=== PATIENT | male | born 1980 | race African-American/Black ===

== ENCOUNTER 2016-06-17 12:44 | Inpatient (IN) | payer OTHER ==
[~2016-06-17] VITALS: Ht 170.2 cm; Wt 57.7 kg
[2016-06-17] MEDS ORDERED: IV NORMAL SALINE 1000ML BAG 1,000 ML IV SCH (15:33)
[2016-06-17] MEDS ORDERED: ONDANSETRON PF 4 MG/2 ML VIAL. IV ONE (15:45)
[2016-06-17] MEDS ORDERED: FENTANYL PF 100 MCG/2 ML VIAL. IV PRN (15:45)
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
[2016-06-17 16:52] LABS: BASO % 0 % (0-3); EOS % 0 % (0-3); HEMATOCRIT 26.9 % (39.0-53.0); HEMOGLOBIN 8.8 g/dL (13.0-17.5); LYMPH % 30 % (24-48); MEAN CORPUSCULAR HEMOGLOBIN 29 pg (25-35); MEAN CORPUSCULAR HGB CONC 33 g/dL (31-37); MEAN CORPUSCULAR VOLUME 88 fL (79-100); MONO % 9 % (0-9); NEUT % 62 % (31-73); PLATELET COUNT 344 x10^3/uL (140-400); RED BLOOD COUNT 3.06 x10^6/uL (4.30-5.70); RED CELL DISTRIBUTION WIDTH 13.5 % (11.5-14.5); WHITE BLOOD COUNT 10.2 x10^3/uL (4.0-11.0)
[2016-06-17 17:08] LABS: CALCIUM 8.6 mg/dL (8.5-10.1); CREATININE 0.9 mg/dL (0.7-1.3); GFR 116.2; POTASSIUM 4.7 mmol/L (3.5-5.1)
[2016-06-17 17:20] LABS: ALBUMIN 1.8 g/dL (3.4-5.0); ALBUMIN/GLOBULIN RATIO 0.4 (1.0-1.7); TOTAL BILIRUBIN 0.2 mg/dL (0.2-1.0); TOTAL PROTEIN 6.5 g/dL (6.4-8.2)
[2016-06-17] MEDS ORDERED: IOHEXOL 300 MG/ML 75 ML VIAL IV ONE (17:30)
[2016-06-17 17:36] LABS: NEG OBC FOB NEG; POS OBC FOB POS
[2016-06-17] MEDS ORDERED: CONTRAST GIVEN MC PRN (17:45)
[2016-06-17] MEDS ORDERED: LOPE2TAB27 PO (17:50)
[2016-06-17] MEDS ORDERED: PNV91TAB3 PO (17:50)
[2016-06-17] MEDS ORDERED: TRIM100V2 IM (17:50)
[2016-06-17] MEDS ORDERED: PRED20TA PO (17:50)
[2016-06-17] MEDS ORDERED: HYDR25TA PO (17:50)
[2016-06-17] MEDS ORDERED: NYST1000 PO (18:00)
[2016-06-17] MEDS ORDERED: ACET500T68 PO (18:00)
[2016-06-17] MEDS ORDERED: BOOST (18:00)
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
[2016-06-17] MEDS ORDERED: ONDANSETRON PF 4 MG/2 ML VIAL. IV PRN (18:45)
[2016-06-17] MEDS ORDERED: METRONIDAZOLE 500mg PREMIX 100 ML IV ONE (18:45)
[2016-06-17] MEDS ORDERED: CEFTRIAXONE 1GM IVPB FOR OMNI 50 ML IV ONE (18:45)
[2016-06-17] MEDS: MORPHINE SULFATE 4 MG/ML DISP.SYRIN. IV PRN ×2 (21:05→23:20)
--- NOTE | 2016-06-17 23:14 | ACF ---
Admission Forms Criteria GASTROINTESTINAL BLEEDING Clinical Indications for Inpatient Care (Place 'X' for any and all applicable criteria): Ongoing inpatient care may be indicated for gastrointestinal bleeding with ANY ONE of the following (4)(20)(21)(22)(23)(24): [ X]I. Active bleeding (eg, fresh voluminous blood in emesis or nasogastric aspirate, or per rectum) [ ]II. Hemodynamic instability [ ]III. Anticoagulation therapy or coagulopathy ((eg, advanced liver disease, irreversible anticoagulation) [ ]IV. Ischemic colitis (22) [ ]V. Endoscopy showing arterial bleeding, adherent clot, nonbleeding visible vessel, varices, flat red spots, ulcer size greater than 2 cm, or portal hypertensive gastropathy [ ]. High-risk low platelet count []VII. Anemia requiring inpatient care as indicated by ANY ONE of the following a)[ ] Cognitive impairment b)[ ] Syncope c)[ ] Heart failure d)[ ] Chest pain e)[ ] Dyspnea f)[ ] Other findings suggesting inadequate perfusion (eg, peripheral or myocardial ischemia, end organ dysfunction) [ ]VIII. High-risk low platelet count [ ]IX. Suspected variceal cause of bleeding as indicated by ANY ONE of the following(27)(28): a)[ ] Known varices b)[ ] Hepatomegaly or splenomegaly c)[ ] Ascites d)[ ] Jaundice or scleral icterus e)[ ] History of liver disease (eg, cirrhosis) f)[ ] Physical findings of portal hypertension (eg, caput medusa) g)[ ] Comorbid disorder indicating risk for portal vein thrombosis (eg , abdominal surgery, sepsis, shock, exchange transfusion, prior umbilical vein catheterization) Extended stay may be needed until ALL of the following are present(20)(38)(47): [ ]a) Hemodynamic stability [ ]b) No evidence of active bleeding (eg, stable Hematocrit) [ ]c) Platelet count, prothrombin time, and partial thromboplastin time acceptable for next level of care [ ]d) Surgical or other acute intervention not needed [ ]e) Oral hydration and diet tolerated The original [employer] content created by [employer] has been revised. The portions of the content which have been revised are identified through the use of italic text or in bold, and [employer] has neither reviewed nor approved the modified material. All other unmodified content is copyright [facility]. Please see references footnoted in the original [facility] edition 2016 Admission Criteria Met?: Yes RICHIE MEZA Jun 17, 2016 23:14
[2016-06-17] MEDS: ACETAMINOPHEN 325 MG TABLET. PO PRN (23:19)
[2016-06-18] VITALS (11 sets, daily range): BP systolic 95–123; BP diastolic 56–72
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
[2016-06-18] MEDS ORDERED: PRED20TA PO (03:29)
[2016-06-18] MEDS ORDERED: MULT-91 PO (03:29)
[2016-06-18] MEDS: ACETAMINOPHEN 325 MG TABLET. PO PRN ×2 (04:27→10:52)
[2016-06-18] MEDS: MORPHINE SULFATE 4 MG/ML DISP.SYRIN. IV PRN ×3 (04:27→10:38)
[2016-06-18] MEDS: METRONIDAZOLE 500mg PREMIX 100 ML IV SCH ×3 (05:35→20:59)
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
[2016-06-18 10:04] LABS: BASO % 0 % (0-3); EOS % 2 % (0-3); HEMATOCRIT 29.1 % (39.0-53.0); HEMOGLOBIN 9.8 g/dL (13.0-17.5); LYMPH # 4.1 x10^3/uL (1.0-4.8); LYMPH % 40 % (24-48); MEAN CORPUSCULAR HEMOGLOBIN 29 pg (25-35); MEAN CORPUSCULAR HGB CONC 34 g/dL (31-37); MEAN CORPUSCULAR VOLUME 86 fL (79-100); MONO % 11 % (0-9); NEUT % 47 % (31-73); PLATELET COUNT 345 x10^3/uL (140-400); RED BLOOD COUNT 3.39 x10^6/uL (4.30-5.70); RED CELL DISTRIBUTION WIDTH 13.7 % (11.5-14.5); WHITE BLOOD COUNT 10.2 x10^3/uL (4.0-11.0)
[2016-06-18 10:25] LABS: CALCIUM 7.8 mg/dL (8.5-10.1); CREATININE 0.9 mg/dL (0.7-1.3); GFR 116.2; POTASSIUM 4.1 mmol/L (3.5-5.1)
[2016-06-18] MEDS: methylPREDNISolone SOD SUCC PF 40 MG/ML VIAL. IV SCH ×2 (10:38→20:59)
--- NOTE | 2016-06-18 15:25 | PDOC ---
PROGRESS NOTES Chief Complaint Chief Complaint acute abd pain ulcerative colitis flare Bloody diarrhea, abdominal pain, weight loss anemia of blood loss severe malnutrition on POA H/o C Diff -treated w/ Flagyl -- Check stool culture and C Diff, start IV steroids, continue antibiotics, monitor symptoms. Likely needs group home treatment for UC. History of Present Illness History of Present Illness Abnormal CT -thickening in the majority of colon Prior UC treatment with Humira - had stopped 2014, no flare until now Vitals Vitals Vital Signs Date Time Temp Pulse Resp B/P Pulse Ox O2 Delivery O2 Flow Rate FiO2 06/18/16 14:48 98.4 100 18 105/63 98 Room Air 98.4 Physical Exam General: Alert, Oriented X3, Cooperative, mild distress, moderate distress Heart: Regular rate, No murmurs Lungs: Clear, Wheezing Abdomen: Normal bowel sounds, Other (tender, thin, ) Extremities: No clubbing, No cyanosis Skin: No rashes Labs LABS Laboratory Tests Test 06/17/16 15:46 06/17/16 16:15 06/18/16 09:35 Stool Occult Blood Positive (NEG) White Blood Count 10.2x10^3/uL (4.0-11.0) 10.2x10^3/uL (4.0-11.0) Red Blood Count 3.06x10^6/uL (4.30-5.70) 3.39x10^6/uL (4.30-5.70) Hemoglobin 8.8g/dL (13.0-17.5) 9.8g/dL (13.0-17.5) Hematocrit 26.9% (39.0-53.0) 29.1% (39.0-53.0) Mean Corpuscular Volume 88fL (79-100) 86fL (79-100) Mean Corpuscular Hemoglobin 29pg (25-35) 29pg (25-35) Mean Corpuscular Hemoglobin Concent 33g/dL (31-37) 34g/dL (31-37) Red Cell Distribution Width 13.5% (11.5-14.5) 13.7% (11.5-14.5) Platelet Count 344x10^3/uL (140-400) 345x10^3/uL (140-400) Neutrophils (%) (Auto) 62% (31-73) 47% (31-73) Lymphocytes (%) (Auto) 30% (24-48) 40% (24-48) Monocytes (%) (Auto) 9% (0-9) 11% (0-9) Eosinophils (%) (Auto) 0% (0-3) 2% (0-3) Basophils (%) (Auto) 0% (0-3) 0% (0-3) Neutrophils # (Auto) 6.3x10^3uL (1.8-7.7) 4.8x10^3uL (1.8-7.7) Lymphocytes # (Auto) 3.0x10^3/uL (1.0-4.8) 4.1x10^3/uL (1.0-4.8) Monocytes # (Auto) 0.9x10^3/uL (0.0-1.1) 1.1x10^3/uL (0.0-1.1) Eosinophils # (Auto) 0.0x10^3/uL (0.0-0.7) 0.2x10^3/uL (0.0-0.7) Basophils # (Auto) 0.0x10^3/uL (0.0-0.2) 0.0x10^3/uL (0.0-0.2) Sodium Level 133mmol/L (136-145) 131mmol/L (136-145) Potassium Level 4.7mmol/L (3.5-5.1) 4.1mmol/L (3.5-5.1) Chloride Level 97mmol/L (98-107) 98mmol/L (98-107) Carbon Dioxide Level 32mmol/L (21-32) 25mmol/L (21-32) Anion Gap 4 (6-14) 8 (6-14) Blood Urea Nitrogen 11mg/dL (8-26) 11mg/dL (8-26) Creatinine 0.9mg/dL (0.7-1.3) 0.9mg/dL (0.7-1.3) Estimated GFR (Cockcroft-Gault) 116.2 116.2 BUN/Creatinine Ratio 12 (6-20) Glucose Level 120mg/dL (70-99) 90mg/dL (70-99) Lactic Acid Level 1.1mmol/L (0.4-2.0) Calcium Level 8.6mg/dL (8.5-10.1) 7.8mg/dL (8.5-10.1) Total Bilirubin 0.2mg/dL (0.2-1.0) Aspartate Amino Transf (AST/SGOT) 28U/L (15-37) Alanine Aminotransferase (ALT/SGPT) 94U/L (16-63) Alkaline Phosphatase 122U/L (46-116) Troponin I Quantitative < 0.017ng/mL (0.000-0.055) IH-Tnl-H-Type Natriuretic Peptide 74pg/mL (0-124) Total Protein 6.5g/dL (6.4-8.2) Albumin 1.8g/dL (3.4-5.0) Albumin/Globulin Ratio 0.4 (1.0-1.7) Lipase 106U/L (73-393) Review of Systems Review of Systems nausea pain, was 10.10, now 7 diarrhea w./ blood Assessment and Plan Assessmemt and Plan Problems Medical Problems: (1) Colitis Status: Acute Problems: Comment Review of Relevant I have reviewed the following items mariella (where applicable) has been applied. Labs Laboratory Tests Test 06/17/16 15:46 06/17/16 16:15 06/18/16 09:35 Stool Occult Blood Positive (NEG) White Blood Count 10.2x10^3/uL (4.0-11.0) 10.2x10^3/uL (4.0-11.0) Red Blood Count 3.06x10^6/uL (4.30-5.70) 3.39x10^6/uL (4.30-5.70) Hemoglobin 8.8g/dL (13.0-17.5) 9.8g/dL (13.0-17.5) Hematocrit 26.9% (39.0-53.0) 29.1% (39.0-53.0) Mean Corpuscular Volume 88fL (79-100) 86fL (79-100) Mean Corpuscular Hemoglobin 29pg (25-35) 29pg (25-35) Mean Corpuscular Hemoglobin Concent 33g/dL (31-37) 34g/dL (31-37) Red Cell Distribution Width 13.5% (11.5-14.5) 13.7% (11.5-14.5) Platelet Count 344x10^3/uL (140-400) 345x10^3/uL (140-400) Neutrophils (%) (Auto) 62% (31-73) 47% (31-73) Lymphocytes (%) (Auto) 30% (24-48) 40% (24-48) Monocytes (%) (Auto) 9% (0-9) 11% (0-9) Eosinophils (%) (Auto) 0% (0-3) 2% (0-3) Basophils (%) (Auto) 0% (0-3) 0% (0-3) Neutrophils # (Auto) 6.3x10^3uL (1.8-7.7) 4.8x10^3uL (1.8-7.7) Lymphocytes # (Auto) 3.0x10^3/uL (1.0-4.8) 4.1x10^3/uL (1.0-4.8) Monocytes # (Auto) 0.9x10^3/uL (0.0-1.1) 1.1x10^3/uL (0.0-1.1) Eosinophils # (Auto) 0.0x10^3/uL (0.0-0.7) 0.2x10^3/uL (0.0-0.7) Basophils # (Auto) 0.0x10^3/uL (0.0-0.2) 0.0x10^3/uL (0.0-0.2) Sodium Level 133mmol/L (136-145) 131mmol/L (136-145) Potassium Level 4.7mmol/L (3.5-5.1) 4.1mmol/L (3.5-5.1) Chloride Level 97mmol/L (98-107) 98mmol/L (98-107) Carbon Dioxide Level 32mmol/L (21-32) 25mmol/L (21-32) Anion Gap 4 (6-14) 8 (6-14) Blood Urea Nitrogen 11mg/dL (8-26) 11mg/dL (8-26) Creatinine 0.9mg/dL (0.7-1.3) 0.9mg/dL (0.7-1.3) Estimated GFR (Cockcroft-Gault) 116.2 116.2 BUN/Creatinine Ratio 12 (6-20) Glucose Level 120mg/dL (70-99) 90mg/dL (70-99) Lactic Acid Level 1.1mmol/L (0.4-2.0) Calcium Level 8.6mg/dL (8.5-10.1) 7.8mg/dL (8.5-10.1) Total Bilirubin 0.2mg/dL (0.2-1.0) Aspartate Amino Transf (AST/SGOT) 28U/L (15-37) Alanine Aminotransferase (ALT/SGPT) 94U/L (16-63) Alkaline Phosphatase 122U/L (46-116) Troponin I Quantitative < 0.017ng/mL (0.000-0.055) BE-Hjk-S-Type Natriuretic Peptide 74pg/mL (0-124) Total Protein 6.5g/dL (6.4-8.2) Albumin 1.8g/dL (3.4-5.0) Albumin/Globulin Ratio 0.4 (1.0-1.7) Lipase 106U/L (73-393) Laboratory Tests Test 06/17/16 15:46 06/17/16 16:15 06/18/16 09:35 Stool Occult Blood Positive (NEG) White Blood Count 10.2x10^3/uL (4.0-11.0) 10.2x10^3/uL (4.0-11.0) Red Blood Count 3.06x10^6/uL (4.30-5.70) 3.39x10^6/uL (4.30-5.70) Hemoglobin 8.8g/dL (13.0-17.5) 9.8g/dL (13.0-17.5) Hematocrit 26.9% (39.0-53.0) 29.1% (39.0-53.0) Mean Corpuscular Volume 88fL (79-100) 86fL (79-100) Mean Corpuscular Hemoglobin 29pg (25-35) 29pg (25-35) Mean Corpuscular Hemoglobin Concent 33g/dL (31-37) 34g/dL (31-37) Red Cell Distribution Width 13.5% (11.5-14.5) 13.7% (11.5-14.5) Platelet Count 344x10^3/uL (140-400) 345x10^3/uL (140-400) Neutrophils (%) (Auto) 62% (31-73) 47% (31-73) Lymphocytes (%) (Auto) 30% (24-48) 40% (24-48) Monocytes (%) (Auto) 9% (0-9) 11% (0-9) Eosinophils (%) (Auto) 0% (0-3) 2% (0-3) Basophils (%) (Auto) 0% (0-3) 0% (0-3) Neutrophils # (Auto) 6.3x10^3uL (1.8-7.7) 4.8x10^3uL (1.8-7.7) Lymphocytes # (Auto) 3.0x10^3/uL (1.0-4.8) 4.1x10^3/uL (1.0-4.8) Monocytes # (Auto) 0.9x10^3/uL (0.0-1.1) 1.1x10^3/uL (0.0-1.1) Eosinophils # (Auto) 0.0x10^3/uL (0.0-0.7) 0.2x10^3/uL (0.0-0.7) Basophils # (Auto) 0.0x10^3/uL (0.0-0.2) 0.0x10^3/uL (0.0-0.2) Sodium Level 133mmol/L (136-145) 131mmol/L (136-145) Potassium Level 4.7mmol/L (3.5-5.1) 4.1mmol/L (3.5-5.1) Chloride Level 97mmol/L (98-107) 98mmol/L (98-107) Carbon Dioxide Level 32mmol/L (21-32) 25mmol/L (21-32) Anion Gap 4 (6-14) 8 (6-14) Blood Urea Nitrogen 11mg/dL (8-26) 11mg/dL (8-26) Creatinine 0.9mg/dL (0.7-1.3) 0.9mg/dL (0.7-1.3) Estimated GFR (Cockcroft-Gault) 116.2 116.2 BUN/Creatinine Ratio 12 (6-20) Glucose Level 120mg/dL (70-99) 90mg/dL (70-99) Lactic Acid Level 1.1mmol/L (0.4-2.0) Calcium Level 8.6mg/dL (8.5-10.1) 7.8mg/dL (8.5-10.1) Total Bilirubin 0.2mg/dL (0.2-1.0) Aspartate Amino Transf (AST/SGOT) 28U/L (15-37) Alanine Aminotransferase (ALT/SGPT) 94U/L (16-63) Alkaline Phosphatase 122U/L (46-116) Troponin I Quantitative < 0.017ng/mL (0.000-0.055) AU-Zhl-S-Type Natriuretic Peptide 74pg/mL (0-124) Total Protein 6.5g/dL (6.4-8.2) Albumin 1.8g/dL (3.4-5.0) Albumin/Globulin Ratio 0.4 (1.0-1.7) Lipase 106U/L (73-393) Medications Current Medications Fentanyl Citrate 25 mcg 25 mcg PRN Q15MIN PRN IV PAIN GREATER THAN 3/10 Last administered on 06/17/16 16:59; Start 06/17/16 at 15:45; Stop 06/18/16 at 15:44 Sodium Chloride (Iv Sodium Chloride 0.9% 1000ml Bag) 1,000 ml @ 1,000 mls/hr Q1H IV Last administered on 06/17/16 16:51; Start 06/17/16 at 15:33; Stop at 16:46; Status DC Ondansetron HCl (Zofran) 4 mg 1X ONCE IV Last administered on 06/17/16 16:57; Start 06/17/16 at 15:45; Stop 06/17/16 at 16:46; Status DC Iohexol (Omnipaque 300 Mg/ml) 75 ml 1X ONCE IV Last administered on 06/17/16 17:45; Start 06/17/16 at 17:30; Stop 06/17/16 at 17:31; Status DC Info 1 each 1 each PRN DAILY PRN MC SEE COMMENTS; Start 06/17/16 at 17:45; Stop 06/19/16 at 17:44 Ceftriaxone Sodium 50 ml @ 100 mls/hr 1X ONCE IV Last administered on 19:50; Start 06/17/16 at 18:45; Stop 06/17/16 at 19:14; Status DC Ceftriaxone Sodium 1 gm/ Sodium Chloride 50 ml @ 100 mls/hr Q24H IV ; Start 02/22 at 18:00 Metronidazole 100 ml @ 100 mls/hr Q8HRS IV Last administered on 06/18/16 13: 44; Start 06/18/16 at 06:00 Metronidazole (FLAGYL 500Mmg PREMIX) 100 ml @ 100 mls/hr 1X ONCE IV Last administered on 06/17/16 21:04; Start 06/17/16 at 18:45; Stop 06/17/16 at 19:44; Status DC Ondansetron HCl (Zofran) 4 mg PRN Q8HRS PRN IV NAUSEA/VOMITING Last administered on 06/18/16 08:38; Start 06/17/16 at 18:45; Stop 06/18/16 at 18:44 Morphine Sulfate 4 mg PRN Q2HR PRN IV PAIN Last administered on 06/18/16 10:38 ; Start 06/17/16 at 18:45; Stop 06/18/16 at 18:44 Acetaminophen (Tylenol) 650 mg PRN Q4HRS PRN PO FEVER Last administered on 06/18 10:52; Start 06/17/16 at 18:45; Stop 06/18/16 at 18:44 Methylprednisolone Sodium Succinate (Solu-Medrol 40mg Vial) 40 mg Q12HR IV Last administered on 06/18/16 10:38; Start 06/18/16 at 10:00 Active Scripts Active Reported One Daily (Multivitamin) 1 Each Tablet 1 Each PO DAILY Prednisone 20 Mg Tablet 1 Tab PO HS [boost oral liquid] Nystatin 100,000 Unit/1 Ml Oral.susp 5 Ml PO BID Acetaminophen 500 Mg Tablet 1,000 Mg PO PRN BID PRN Tigan (Trimethobenzamide Hcl) 100 Mg/1 Ml Vial 100 Mg IM PRN BID Prednisone 20 Mg Tablet 40 Mg PO DAILY Caplet (Pnv95/Ferrous Fumarate/FA) 1 Each Tablet 1 Each PO DAILY Loperamide (Loperamide Hcl) 2 Mg Tablet 2 Tab PO PRN DAILY PRN Hydroxyzine Hcl 25 Mg Tablet 1 Tab PO BID Vitals/I & O Vital Sign - Last 24 Hours 06/17/16 06/17/16 06/17/16 06/17/16 15:39 16:09 16:39 16:59 Pulse 90 76 78 Resp 20 16 20 14 B/P 118/69 121/67 115/69 Pulse Ox 98 100 100 100 O2 Delivery Room Air Room Air 06/17/16 06/17/16 06/17/16 06/17/16 17:00 20:45 21:05 23:20 Pulse 74 Resp 18 B/P 116/70 Pulse Ox 100 O2 Delivery Room Air Room Air Room Air Room Air 06/18/16 06/18/16 06/18/16 06/18/16 01:15 01:53 02:53 03:18 Temp 99.2 99.2 99.5 99.5 99.2 99.2 99.5 99.5 Pulse 105 103 94 94 Resp 10 10 16 16 B/P 112/63 107/63 107/63 107/63 Pulse Ox 98 100 O2 Delivery Room Air Room Air 06/18/16 06/18/16 06/18/16 06/18/16 03:53 04:19 04:27 07:00 Temp 101.1 99.4 101.1 99.4 Pulse 103 107 106 Resp 20 18 B/P 99/56 123/72 106/66 Pulse Ox 98 O2 Delivery Room Air Room Air 06/18/16 06/18/16 06/18/16 06/18/16 08:00 08:39 09:09 10:38 O2 Delivery Room Air Room Air Room Air Room Air 06/18/16 06/18/16 10:59 14:48 Temp 99.7 98.4 99.7 98.4 Pulse 108 100 Resp 18 18 B/P 95/57 105/63 Pulse Ox 98 98 O2 Delivery Room Air Room Air Intake and Output 06/17/16 06/17/16 06/18/16 15:00 23:00 07:00 Intake Total 30 ml Output Total 200 ml Balance -170 ml EULALIO LANCE MD Jun 18, 2016 15:25
[2016-06-18] MEDS ORDERED: PHENYLEPH/MINERAL OIL/PETROLAT RECTAL OINTMENT 28GM TUBE. RC PRN (15:30)
[2016-06-18] MEDS: IV DEXTROSE 5 %-0.45 % NACL 1,000 ML IV SCH (15:51)
[2016-06-18] MEDS: CEFTRIAXONE SODIUM 1 GM in IV NORMAL SALINE 50ML 50 ML IV SCH (18:02)
[2016-06-18] MEDS: MORPHINE IR 15 MG TABLET PO PRN (20:59)
[2016-06-19] MEDS: IV DEXTROSE 5 %-0.45 % NACL 1,000 ML IV SCH ×2 (02:00→07:58)
[2016-06-19 03:00] VITALS: BP 114/67
[2016-06-19] MEDS: METRONIDAZOLE 500mg PREMIX 100 ML IV SCH ×3 (06:11→20:48)
[2016-06-19] MEDS: MORPHINE IR 15 MG TABLET PO PRN ×4 (06:15→21:10)
[2016-06-19 07:22] LABS: ALBUMIN 1.5 g/dL (3.4-5.0); ALBUMIN/GLOBULIN RATIO 0.3 (1.0-1.7); CREATININE 0.8 mg/dL (0.7-1.3); GFR 133.1; POTASSIUM 4.1 mmol/L (3.5-5.1); TOTAL BILIRUBIN 0.2 mg/dL (0.2-1.0); TOTAL PROTEIN 5.9 g/dL (6.4-8.2)
[2016-06-19 07:24] LABS: BASO % 0 % (0-3); EOS % 0 % (0-3); HEMATOCRIT 27.4 % (39.0-53.0); HEMOGLOBIN 9.1 g/dL (13.0-17.5); LYMPH # 3.5 x10^3/uL (1.0-4.8); LYMPH % 35 % (24-48); MEAN CORPUSCULAR HEMOGLOBIN 29 pg (25-35); MEAN CORPUSCULAR HGB CONC 33 g/dL (31-37); MEAN CORPUSCULAR VOLUME 88 fL (79-100); MONO % 10 % (0-9); NEUT % 55 % (31-73); PLATELET COUNT 323 x10^3/uL (140-400); RED BLOOD COUNT 3.13 x10^6/uL (4.30-5.70); RED CELL DISTRIBUTION WIDTH 13.7 % (11.5-14.5); WHITE BLOOD COUNT 10.2 x10^3/uL (4.0-11.0)
[2016-06-19] MEDS: methylPREDNISolone SOD SUCC PF 40 MG/ML VIAL. IV SCH ×2 (07:58→20:48)
[2016-06-19 08:23] VITALS: BP 104/68
[2016-06-19 11:00] VITALS: BP 97/60
--- NOTE | 2016-06-19 11:04 | PDOC ---
PROGRESS NOTES Chief Complaint Chief Complaint 1. Acute abdominal pain 2. Ulcerative colitis flare 3. Bloody diarrhea 4. Weight loss 5. Anemia of blood loss 6. Severe malnutrition on POA 7. H/o C Diff -treated w/ Flagyl History of Present Illness History of Present Illness Patient awake, alert, and oriented when seen this AM. 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 Pt still has complaint of abdominal pain albeit less then what it was. Pt still has bloody stools. Appetite is slowly coming back and is now drinking well. All questions and concerns addressed and answered. Vitals Vitals Vital Signs Date Time Temp Pulse Resp B/P Pulse Ox O2 Delivery O2 Flow Rate FiO2 06/19/16 08:23 98.3 77 20 104/68 98 Room Air 98.3 Physical Exam General: Alert, Oriented X3, Cooperative, mild distress, moderate distress Heart: Regular rate, Normal S1, Normal S2, No murmurs Lungs: Clear, Wheezing Abdomen: Normal bowel sounds, Soft, Other (tender, thin, ) Extremities: No clubbing, No cyanosis, No edema Skin: No rashes, No significant lesion Labs LABS Laboratory Tests Test 06/18/16 13:15 06/19/16 06:40 Clostridium difficile Toxin (PCR) Negative (Negative) White Blood Count 10.2x10^3/uL (4.0-11.0) Red Blood Count 3.13x10^6/uL (4.30-5.70) Hemoglobin 9.1g/dL (13.0-17.5) Hematocrit 27.4% (39.0-53.0) Mean Corpuscular Volume 88fL (79-100) Mean Corpuscular Hemoglobin 29pg (25-35) Mean Corpuscular Hemoglobin Concent 33g/dL (31-37) Red Cell Distribution Width 13.7% (11.5-14.5) Platelet Count 323x10^3/uL (140-400) Neutrophils (%) (Auto) 55% (31-73) Lymphocytes (%) (Auto) 35% (24-48) Monocytes (%) (Auto) 10% (0-9) Eosinophils (%) (Auto) 0% (0-3) Basophils (%) (Auto) 0% (0-3) Neutrophils # (Auto) 5.7x10^3uL (1.8-7.7) Lymphocytes # (Auto) 3.5x10^3/uL (1.0-4.8) Monocytes # (Auto) 1.0x10^3/uL (0.0-1.1) Eosinophils # (Auto) 0.0x10^3/uL (0.0-0.7) Basophils # (Auto) 0.0x10^3/uL (0.0-0.2) Sodium Level 133mmol/L (136-145) Potassium Level 4.1mmol/L (3.5-5.1) Chloride Level 99mmol/L (98-107) Carbon Dioxide Level 25mmol/L (21-32) Anion Gap 9 (6-14) Blood Urea Nitrogen 6mg/dL (8-26) Creatinine 0.8mg/dL (0.7-1.3) Estimated GFR (Cockcroft-Gault) 133.1 BUN/Creatinine Ratio 8 (6-20) Glucose Level 131mg/dL (70-99) Calcium Level 8.0mg/dL (8.5-10.1) Total Bilirubin 0.2mg/dL (0.2-1.0) Aspartate Amino Transf (AST/SGOT) 14U/L (15-37) Alanine Aminotransferase (ALT/SGPT) 45U/L (16-63) Alkaline Phosphatase 103U/L (46-116) Total Protein 5.9g/dL (6.4-8.2) Albumin 1.5g/dL (3.4-5.0) Albumin/Globulin Ratio 0.3 (1.0-1.7) Review of Systems Review of Systems Patient complaint of mild abdominal pain Patient complaint of hunger Patient complaint of fatigue Assessment and Plan Assessmemt and Plan Problems Medical Problems: (1) Colitis Status: Acute Assessment: 1. Acute abdominal pain 2. Ulcerative colitis flare 3. Bloody diarrhea 4. Weight loss 5. Anemia of blood loss 6. Severe malnutrition on POA 7. H/o C Diff -treated w/ Flagyl Plan: Continue to monitor the patient per floor protocol Continue daily labs Continue Antibiotics- Rocephin and Metronidazole Advance diet as tolerated when ok with GI Appreciate GI input DW RN Daily PTOT Problems: Comment Review of Relevant I have reviewed the following items mariella (where applicable) has been applied. Labs Laboratory Tests Test 06/17/16 15:46 06/17/16 16:15 06/18/16 00:12 06/18/16 09:35 Stool Occult Blood Positive (NEG) White Blood Count 10.2x10^3/uL (4.0-11.0) 10.2x10^3/uL (4.0-11.0) Red Blood Count 3.06x10^6/uL (4.30-5.70) 3.39x10^6/uL (4.30-5.70) Hemoglobin 8.8g/dL (13.0-17.5) 9.8g/dL (13.0-17.5) Hematocrit 26.9% (39.0-53.0) 29.1% (39.0-53.0) Mean Corpuscular Volume 88fL (79-100) 86fL (79-100) Mean Corpuscular Hemoglobin 29pg (25-35) 29pg (25-35) Mean Corpuscular Hemoglobin Concent 33g/dL (31-37) 34g/dL (31-37) Red Cell Distribution Width 13.5% (11.5-14.5) 13.7% (11.5-14.5) Platelet Count 344x10^3/uL (140-400) 345x10^3/uL (140-400) Neutrophils (%) (Auto) 62% (31-73) 47% (31-73) Lymphocytes (%) (Auto) 30% (24-48) 40% (24-48) Monocytes (%) (Auto) 9% (0-9) 11% (0-9) Eosinophils (%) (Auto) 0% (0-3) 2% (0-3) Basophils (%) (Auto) 0% (0-3) 0% (0-3) Neutrophils # (Auto) 6.3x10^3uL (1.8-7.7) 4.8x10^3uL (1.8-7.7) Lymphocytes # (Auto) 3.0x10^3/uL (1.0-4.8) 4.1x10^3/uL (1.0-4.8) Monocytes # (Auto) 0.9x10^3/uL (0.0-1.1) 1.1x10^3/uL (0.0-1.1) Eosinophils # (Auto) 0.0x10^3/uL (0.0-0.7) 0.2x10^3/uL (0.0-0.7) Basophils # (Auto) 0.0x10^3/uL (0.0-0.2) 0.0x10^3/uL (0.0-0.2) Sodium Level 133mmol/L (136-145) 131mmol/L (136-145) Potassium Level 4.7mmol/L (3.5-5.1) 4.1mmol/L (3.5-5.1) Chloride Level 97mmol/L (98-107) 98mmol/L (98-107) Carbon Dioxide Level 32mmol/L (21-32) 25mmol/L (21-32) Anion Gap 4 (6-14) 8 (6-14) Blood Urea Nitrogen 11mg/dL (8-26) 11mg/dL (8-26) Creatinine 0.9mg/dL (0.7-1.3) 0.9mg/dL (0.7-1.3) Estimated GFR (Cockcroft-Gault) 116.2 116.2 BUN/Creatinine Ratio 12 (6-20) Glucose Level 120mg/dL (70-99) 90mg/dL (70-99) Lactic Acid Level 1.1mmol/L (0.4-2.0) Calcium Level 8.6mg/dL (8.5-10.1) 7.8mg/dL (8.5-10.1) Total Bilirubin 0.2mg/dL (0.2-1.0) Aspartate Amino Transf (AST/SGOT) 28U/L (15-37) Alanine Aminotransferase (ALT/SGPT) 94U/L (16-63) Alkaline Phosphatase 122U/L (46-116) Troponin I Quantitative < 0.017ng/mL (0.000-0.055) SW-Yvd-X-Type Natriuretic Peptide 74pg/mL (0-124) Total Protein 6.5g/dL (6.4-8.2) Albumin 1.8g/dL (3.4-5.0) Albumin/Globulin Ratio 0.4 (1.0-1.7) Lipase 106U/L (73-393) Nasal Screen MRSA (PCR) Negative (Negative) Test 06/18/16 13:15 06/19/16 06:40 Clostridium difficile Toxin (PCR) Negative (Negative) White Blood Count 10.2x10^3/uL (4.0-11.0) Red Blood Count 3.13x10^6/uL (4.30-5.70) Hemoglobin 9.1g/dL (13.0-17.5) Hematocrit 27.4% (39.0-53.0) Mean Corpuscular Volume 88fL (79-100) Mean Corpuscular Hemoglobin 29pg (25-35) Mean Corpuscular Hemoglobin Concent 33g/dL (31-37) Red Cell Distribution Width 13.7% (11.5-14.5) Platelet Count 323x10^3/uL (140-400) Neutrophils (%) (Auto) 55% (31-73) Lymphocytes (%) (Auto) 35% (24-48) Monocytes (%) (Auto) 10% (0-9) Eosinophils (%) (Auto) 0% (0-3) Basophils (%) (Auto) 0% (0-3) Neutrophils # (Auto) 5.7x10^3uL (1.8-7.7) Lymphocytes # (Auto) 3.5x10^3/uL (1.0-4.8) Monocytes # (Auto) 1.0x10^3/uL (0.0-1.1) Eosinophils # (Auto) 0.0x10^3/uL (0.0-0.7) Basophils # (Auto) 0.0x10^3/uL (0.0-0.2) Sodium Level 133mmol/L (136-145) Potassium Level 4.1mmol/L (3.5-5.1) Chloride Level 99mmol/L (98-107) Carbon Dioxide Level 25mmol/L (21-32) Anion Gap 9 (6-14) Blood Urea Nitrogen 6mg/dL (8-26) Creatinine 0.8mg/dL (0.7-1.3) Estimated GFR (Cockcroft-Gault) 133.1 BUN/Creatinine Ratio 8 (6-20) Glucose Level 131mg/dL (70-99) Calcium Level 8.0mg/dL (8.5-10.1) Total Bilirubin 0.2mg/dL (0.2-1.0) Aspartate Amino Transf (AST/SGOT) 14U/L (15-37) Alanine Aminotransferase (ALT/SGPT) 45U/L (16-63) Alkaline Phosphatase 103U/L (46-116) Total Protein 5.9g/dL (6.4-8.2) Albumin 1.5g/dL (3.4-5.0) Albumin/Globulin Ratio 0.3 (1.0-1.7) Laboratory Tests Test 06/18/16 13:15 06/19/16 06:40 Clostridium difficile Toxin (PCR) Negative (Negative) White Blood Count 10.2x10^3/uL (4.0-11.0) Red Blood Count 3.13x10^6/uL (4.30-5.70) Hemoglobin 9.1g/dL (13.0-17.5) Hematocrit 27.4% (39.0-53.0) Mean Corpuscular Volume 88fL (79-100) Mean Corpuscular Hemoglobin 29pg (25-35) Mean Corpuscular Hemoglobin Concent 33g/dL (31-37) Red Cell Distribution Width 13.7% (11.5-14.5) Platelet Count 323x10^3/uL (140-400) Neutrophils (%) (Auto) 55% (31-73) Lymphocytes (%) (Auto) 35% (24-48) Monocytes (%) (Auto) 10% (0-9) Eosinophils (%) (Auto) 0% (0-3) Basophils (%) (Auto) 0% (0-3) Neutrophils # (Auto) 5.7x10^3uL (1.8-7.7) Lymphocytes # (Auto) 3.5x10^3/uL (1.0-4.8) Monocytes # (Auto) 1.0x10^3/uL (0.0-1.1) Eosinophils # (Auto) 0.0x10^3/uL (0.0-0.7) Basophils # (Auto) 0.0x10^3/uL (0.0-0.2) Sodium Level 133mmol/L (136-145) Potassium Level 4.1mmol/L (3.5-5.1) Chloride Level 99mmol/L (98-107) Carbon Dioxide Level 25mmol/L (21-32) Anion Gap 9 (6-14) Blood Urea Nitrogen 6mg/dL (8-26) Creatinine 0.8mg/dL (0.7-1.3) Estimated GFR (Cockcroft-Gault) 133.1 BUN/Creatinine Ratio 8 (6-20) Glucose Level 131mg/dL (70-99) Calcium Level 8.0mg/dL (8.5-10.1) Total Bilirubin 0.2mg/dL (0.2-1.0) Aspartate Amino Transf (AST/SGOT) 14U/L (15-37) Alanine Aminotransferase (ALT/SGPT) 45U/L (16-63) Alkaline Phosphatase 103U/L (46-116) Total Protein 5.9g/dL (6.4-8.2) Albumin 1.5g/dL (3.4-5.0) Albumin/Globulin Ratio 0.3 (1.0-1.7) Medications Current Medications Fentanyl Citrate 25 mcg 25 mcg PRN Q15MIN PRN IV PAIN GREATER THAN 3/10 Last administered on 06/17/16 16:59; Start 06/17/16 at 15:45; Stop 06/18/16 at 15:44; Status DC Sodium Chloride (Iv Sodium Chloride 0.9% 1000ml Bag) 1,000 ml @ 1,000 mls/hr Q1H IV Last administered on 06/17/16 16:51; Start 06/17/16 at 15:33; Stop at 16:46; Status DC Ondansetron HCl (Zofran) 4 mg 1X ONCE IV Last administered on 06/17/16 16:57; Start 06/17/16 at 15:45; Stop 06/17/16 at 16:46; Status DC Iohexol (Omnipaque 300 Mg/ml) 75 ml 1X ONCE IV Last administered on 06/17/16 17:45; Start 06/17/16 at 17:30; Stop 06/17/16 at 17:31; Status DC Info 1 each 1 each PRN DAILY PRN MC SEE COMMENTS; Start 06/17/16 at 17:45; Stop 06/19/16 at 17:44 Ceftriaxone Sodium 50 ml @ 100 mls/hr 1X ONCE IV Last administered on 19:50; Start 06/17/16 at 18:45; Stop 06/17/16 at 19:14; Status DC Ceftriaxone Sodium 1 gm/ Sodium Chloride 50 ml @ 100 mls/hr Q24H IV Last administered on 06/18/16 18:02; Start 06/18/16 at 18:00 Metronidazole 100 ml @ 100 mls/hr Q8HRS IV Last administered on 06/19/16 06: 11; Start 06/18/16 at 06:00 Metronidazole (FLAGYL 500Mmg PREMIX) 100 ml @ 100 mls/hr 1X ONCE IV Last administered on 06/17/16 21:04; Start 06/17/16 at 18:45; Stop 06/17/16 at 19:44; Status DC Ondansetron HCl (Zofran) 4 mg PRN Q8HRS PRN IV NAUSEA/VOMITING Last administered on 06/18/16 08:38; Start 06/17/16 at 18:45; Stop 06/18/16 at 18:44 ; Status DC Morphine Sulfate 4 mg PRN Q2HR PRN IV PAIN Last administered on 06/18/16 10:38 ; Start 06/17/16 at 18:45; Stop 06/18/16 at 18:44; Status DC Acetaminophen (Tylenol) 650 mg PRN Q4HRS PRN PO FEVER Last administered on 06/18 10:52; Start 06/17/16 at 18:45; Stop 06/18/16 at 18:44; Status DC Methylprednisolone Sodium Succinate 40 mg 40 mg Q12HR IV Last administered on 07:58; Start 06/18/16 at 10:00 Dextrose/Sodium Chloride (Iv D5% - 1/2 NS) 1,000 ml @ 100 mls/hr Q10H IV Last administered on 06/19/16 07:58; Start 06/18/16 at 16:00 Morphine Sulfate (Morphine Ir) 15 mg PRN Q4HRS PRN PO PAIN Last administered on 06/19/16 06:15; Start 06/18/16 at 15:30 Phenyleph/Shark Oil/Min Oil/Petrol (Preparation H) 1 christine PRN Q4HRS PRN RC RECTAL PAIN; Start 06/18/16 at 15:30 Active Scripts Active Reported One Daily (Multivitamin) 1 Each Tablet 1 Each PO DAILY Prednisone 20 Mg Tablet 1 Tab PO HS [boost oral liquid] Nystatin 100,000 Unit/1 Ml Oral.susp 5 Ml PO BID Acetaminophen 500 Mg Tablet 1,000 Mg PO PRN BID PRN Tigan (Trimethobenzamide Hcl) 100 Mg/1 Ml Vial 100 Mg IM PRN BID Prednisone 20 Mg Tablet 40 Mg PO DAILY Caplet (Pnv95/Ferrous Fumarate/FA) 1 Each Tablet 1 Each PO DAILY Loperamide (Loperamide Hcl) 2 Mg Tablet 2 Tab PO PRN DAILY PRN Hydroxyzine Hcl 25 Mg Tablet 1 Tab PO BID Vitals/I & O Vital Sign - Last 24 Hours 06/18/16 06/18/16 06/18/16 06/18/16 10:59 14:48 19:00 20:00 Temp 99.7 98.4 97.8 99.7 98.4 97.8 Pulse 108 100 91 Resp 18 B/P 95/57 105/63 103/65 Pulse Ox 98 98 93 O2 Delivery Room Air Room Air Room Air Room Air 06/18/16 06/18/16 06/19/16 06/19/16 20:59 23:00 03:00 06:15 Temp 98.0 98.9 98.0 98.9 Pulse 77 64 Resp 20 18 B/P 106/62 114/67 Pulse Ox 98 97 98 98 O2 Delivery Room Air Room Air Room Air Room Air 06/19/16 06/19/16 06/19/16 07:15 07:33 08:23 Temp 98.3 98.3 Pulse 77 Resp 18 20 B/P 104/68 Pulse Ox 98 98 O2 Delivery Room Air Room Air Room Air Intake and Output 06/18/16 06/18/16 06/19/16 15:00 23:00 07:00 Intake Total 360 ml 1360 ml 240 ml Output Total 600 ml 550 ml Balance 360 ml 760 ml -310 ml SARA BELLA K III DO Jun 19, 2016 11:04
--- NOTE | 2016-06-19 13:30 | PDOC ---
G I PROGRESS NOTE Reason for Follow-up UC exacerbation Subjective Pain and diarrhea slowing/appetite improving with steroids Physical Exam Lungs clear CV S1 S2 ABD +BS, soft , mild tenderness Review of Relevant I have reviewed the following items mariella (where applicable) has been applied. Labs Laboratory Tests Test 06/17/16 15:46 06/17/16 16:15 06/18/16 00:12 06/18/16 09:35 Stool Occult Blood Positive (NEG) White Blood Count 10.2x10^3/uL (4.0-11.0) 10.2x10^3/uL (4.0-11.0) Red Blood Count 3.06x10^6/uL (4.30-5.70) 3.39x10^6/uL (4.30-5.70) Hemoglobin 8.8g/dL (13.0-17.5) 9.8g/dL (13.0-17.5) Hematocrit 26.9% (39.0-53.0) 29.1% (39.0-53.0) Mean Corpuscular Volume 88fL (79-100) 86fL (79-100) Mean Corpuscular Hemoglobin 29pg (25-35) 29pg (25-35) Mean Corpuscular Hemoglobin Concent 33g/dL (31-37) 34g/dL (31-37) Red Cell Distribution Width 13.5% (11.5-14.5) 13.7% (11.5-14.5) Platelet Count 344x10^3/uL (140-400) 345x10^3/uL (140-400) Neutrophils (%) (Auto) 62% (31-73) 47% (31-73) Lymphocytes (%) (Auto) 30% (24-48) 40% (24-48) Monocytes (%) (Auto) 9% (0-9) 11% (0-9) Eosinophils (%) (Auto) 0% (0-3) 2% (0-3) Basophils (%) (Auto) 0% (0-3) 0% (0-3) Neutrophils # (Auto) 6.3x10^3uL (1.8-7.7) 4.8x10^3uL (1.8-7.7) Lymphocytes # (Auto) 3.0x10^3/uL (1.0-4.8) 4.1x10^3/uL (1.0-4.8) Monocytes # (Auto) 0.9x10^3/uL (0.0-1.1) 1.1x10^3/uL (0.0-1.1) Eosinophils # (Auto) 0.0x10^3/uL (0.0-0.7) 0.2x10^3/uL (0.0-0.7) Basophils # (Auto) 0.0x10^3/uL (0.0-0.2) 0.0x10^3/uL (0.0-0.2) Sodium Level 133mmol/L (136-145) 131mmol/L (136-145) Potassium Level 4.7mmol/L (3.5-5.1) 4.1mmol/L (3.5-5.1) Chloride Level 97mmol/L (98-107) 98mmol/L (98-107) Carbon Dioxide Level 32mmol/L (21-32) 25mmol/L (21-32) Anion Gap 4 (6-14) 8 (6-14) Blood Urea Nitrogen 11mg/dL (8-26) 11mg/dL (8-26) Creatinine 0.9mg/dL (0.7-1.3) 0.9mg/dL (0.7-1.3) Estimated GFR (Cockcroft-Gault) 116.2 116.2 BUN/Creatinine Ratio 12 (6-20) Glucose Level 120mg/dL (70-99) 90mg/dL (70-99) Lactic Acid Level 1.1mmol/L (0.4-2.0) Calcium Level 8.6mg/dL (8.5-10.1) 7.8mg/dL (8.5-10.1) Total Bilirubin 0.2mg/dL (0.2-1.0) Aspartate Amino Transf (AST/SGOT) 28U/L (15-37) Alanine Aminotransferase (ALT/SGPT) 94U/L (16-63) Alkaline Phosphatase 122U/L (46-116) Troponin I Quantitative < 0.017ng/mL (0.000-0.055) KG-Hnq-S-Type Natriuretic Peptide 74pg/mL (0-124) Total Protein 6.5g/dL (6.4-8.2) Albumin 1.8g/dL (3.4-5.0) Albumin/Globulin Ratio 0.4 (1.0-1.7) Lipase 106U/L (73-393) Nasal Screen MRSA (PCR) Negative (Negative) Test 06/18/16 13:15 06/19/16 06:40 Clostridium difficile Toxin (PCR) Negative (Negative) White Blood Count 10.2x10^3/uL (4.0-11.0) Red Blood Count 3.13x10^6/uL (4.30-5.70) Hemoglobin 9.1g/dL (13.0-17.5) Hematocrit 27.4% (39.0-53.0) Mean Corpuscular Volume 88fL (79-100) Mean Corpuscular Hemoglobin 29pg (25-35) Mean Corpuscular Hemoglobin Concent 33g/dL (31-37) Red Cell Distribution Width 13.7% (11.5-14.5) Platelet Count 323x10^3/uL (140-400) Neutrophils (%) (Auto) 55% (31-73) Lymphocytes (%) (Auto) 35% (24-48) Monocytes (%) (Auto) 10% (0-9) Eosinophils (%) (Auto) 0% (0-3) Basophils (%) (Auto) 0% (0-3) Neutrophils # (Auto) 5.7x10^3uL (1.8-7.7) Lymphocytes # (Auto) 3.5x10^3/uL (1.0-4.8) Monocytes # (Auto) 1.0x10^3/uL (0.0-1.1) Eosinophils # (Auto) 0.0x10^3/uL (0.0-0.7) Basophils # (Auto) 0.0x10^3/uL (0.0-0.2) Sodium Level 133mmol/L (136-145) Potassium Level 4.1mmol/L (3.5-5.1) Chloride Level 99mmol/L (98-107) Carbon Dioxide Level 25mmol/L (21-32) Anion Gap 9 (6-14) Blood Urea Nitrogen 6mg/dL (8-26) Creatinine 0.8mg/dL (0.7-1.3) Estimated GFR (Cockcroft-Gault) 133.1 BUN/Creatinine Ratio 8 (6-20) Glucose Level 131mg/dL (70-99) Calcium Level 8.0mg/dL (8.5-10.1) Total Bilirubin 0.2mg/dL (0.2-1.0) Aspartate Amino Transf (AST/SGOT) 14U/L (15-37) Alanine Aminotransferase (ALT/SGPT) 45U/L (16-63) Alkaline Phosphatase 103U/L (46-116) Total Protein 5.9g/dL (6.4-8.2) Albumin 1.5g/dL (3.4-5.0) Albumin/Globulin Ratio 0.3 (1.0-1.7) Laboratory Tests Test 06/19/16 06:40 White Blood Count 10.2x10^3/uL (4.0-11.0) Red Blood Count 3.13x10^6/uL (4.30-5.70) Hemoglobin 9.1g/dL (13.0-17.5) Hematocrit 27.4% (39.0-53.0) Mean Corpuscular Volume 88fL (79-100) Mean Corpuscular Hemoglobin 29pg (25-35) Mean Corpuscular Hemoglobin Concent 33g/dL (31-37) Red Cell Distribution Width 13.7% (11.5-14.5) Platelet Count 323x10^3/uL (140-400) Neutrophils (%) (Auto) 55% (31-73) Lymphocytes (%) (Auto) 35% (24-48) Monocytes (%) (Auto) 10% (0-9) Eosinophils (%) (Auto) 0% (0-3) Basophils (%) (Auto) 0% (0-3) Neutrophils # (Auto) 5.7x10^3uL (1.8-7.7) Lymphocytes # (Auto) 3.5x10^3/uL (1.0-4.8) Monocytes # (Auto) 1.0x10^3/uL (0.0-1.1) Eosinophils # (Auto) 0.0x10^3/uL (0.0-0.7) Basophils # (Auto) 0.0x10^3/uL (0.0-0.2) Sodium Level 133mmol/L (136-145) Potassium Level 4.1mmol/L (3.5-5.1) Chloride Level 99mmol/L (98-107) Carbon Dioxide Level 25mmol/L (21-32) Anion Gap 9 (6-14) Blood Urea Nitrogen 6mg/dL (8-26) Creatinine 0.8mg/dL (0.7-1.3) Estimated GFR (Cockcroft-Gault) 133.1 BUN/Creatinine Ratio 8 (6-20) Glucose Level 131mg/dL (70-99) Calcium Level 8.0mg/dL (8.5-10.1) Total Bilirubin 0.2mg/dL (0.2-1.0) Aspartate Amino Transf (AST/SGOT) 14U/L (15-37) Alanine Aminotransferase (ALT/SGPT) 45U/L (16-63) Alkaline Phosphatase 103U/L (46-116) Total Protein 5.9g/dL (6.4-8.2) Albumin 1.5g/dL (3.4-5.0) Albumin/Globulin Ratio 0.3 (1.0-1.7) Medications Current Medications Fentanyl Citrate 25 mcg 25 mcg PRN Q15MIN PRN IV PAIN GREATER THAN 3/10 Last administered on 06/17/16 16:59; Start 06/17/16 at 15:45; Stop 06/18/16 at 15:44; Status DC Sodium Chloride (Iv Sodium Chloride 0.9% 1000ml Bag) 1,000 ml @ 1,000 mls/hr Q1H IV Last administered on 06/17/16 16:51; Start 06/17/16 at 15:33; Stop at 16:46; Status DC Ondansetron HCl (Zofran) 4 mg 1X ONCE IV Last administered on 06/17/16 16:57; Start 06/17/16 at 15:45; Stop 06/17/16 at 16:46; Status DC Iohexol (Omnipaque 300 Mg/ml) 75 ml 1X ONCE IV Last administered on 06/17/16 17:45; Start 06/17/16 at 17:30; Stop 06/17/16 at 17:31; Status DC Info 1 each 1 each PRN DAILY PRN MC SEE COMMENTS; Start 06/17/16 at 17:45; Stop 06/19/16 at 17:44 Ceftriaxone Sodium 50 ml @ 100 mls/hr 1X ONCE IV Last administered on 19:50; Start 06/17/16 at 18:45; Stop 06/17/16 at 19:14; Status DC Ceftriaxone Sodium 1 gm/ Sodium Chloride 50 ml @ 100 mls/hr Q24H IV Last administered on 06/18/16 18:02; Start 06/18/16 at 18:00 Metronidazole 100 ml @ 100 mls/hr Q8HRS IV Last administered on 06/19/16 11: 37; Start 06/18/16 at 06:00 Metronidazole (FLAGYL 500Mmg PREMIX) 100 ml @ 100 mls/hr 1X ONCE IV Last administered on 06/17/16 21:04; Start 06/17/16 at 18:45; Stop 06/17/16 at 19:44; Status DC Ondansetron HCl (Zofran) 4 mg PRN Q8HRS PRN IV NAUSEA/VOMITING Last administered on 06/18/16 08:38; Start 06/17/16 at 18:45; Stop 06/18/16 at 18:44 ; Status DC Morphine Sulfate 4 mg PRN Q2HR PRN IV PAIN Last administered on 06/18/16 10:38 ; Start 06/17/16 at 18:45; Stop 06/18/16 at 18:44; Status DC Acetaminophen (Tylenol) 650 mg PRN Q4HRS PRN PO FEVER Last administered on 06/18 10:52; Start 06/17/16 at 18:45; Stop 06/18/16 at 18:44; Status DC Methylprednisolone Sodium Succinate 40 mg 40 mg Q12HR IV Last administered on 07:58; Start 06/18/16 at 10:00 Dextrose/Sodium Chloride (Iv D5% - 1/2 NS) 1,000 ml @ 100 mls/hr Q10H IV Last administered on 06/19/16 07:58; Start 06/18/16 at 16:00 Morphine Sulfate (Morphine Ir) 15 mg PRN Q4HRS PRN PO PAIN Last administered on 06/19/16t 10:56; Start 06/18/16 at 15:30 Phenyleph/Shark Oil/Min Oil/Petrol (Preparation H) 1 christine PRN Q4HRS PRN RC RECTAL PAIN; Start 06/18/16 at 15:30 Active Scripts Active Reported One Daily (Multivitamin) 1 Each Tablet 1 Each PO DAILY Prednisone 20 Mg Tablet 1 Tab PO HS [boost oral liquid] Nystatin 100,000 Unit/1 Ml Oral.susp 5 Ml PO BID Acetaminophen 500 Mg Tablet 1,000 Mg PO PRN BID PRN Tigan (Trimethobenzamide Hcl) 100 Mg/1 Ml Vial 100 Mg IM PRN BID Prednisone 20 Mg Tablet 40 Mg PO DAILY Caplet (Pnv95/Ferrous Fumarate/FA) 1 Each Tablet 1 Each PO DAILY Loperamide (Loperamide Hcl) 2 Mg Tablet 2 Tab PO PRN DAILY PRN Hydroxyzine Hcl 25 Mg Tablet 1 Tab PO BID Vitals/I & O Vital Sign - Last 24 Hours 06/18/16 06/18/16 06/18/16 06/18/16 14:48 19:00 20:00 20:59 Temp 98.4 97.8 98.4 97.8 Pulse 100 91 Resp 18 18 B/P 105/63 103/65 Pulse Ox 98 93 98 O2 Delivery Room Air Room Air Room Air Room Air 06/18/16 06/19/16 06/19/16 06/19/16 23:00 03:00 06:15 07:33 Temp 98.0 98.9 98.0 98.9 Pulse 77 64 Resp 20 18 B/P 106/62 114/67 Pulse Ox 97 98 98 O2 Delivery Room Air Room Air Room Air Room Air 06/19/16 06/19/16 06/19/16 06/19/16 08:23 10:56 11:00 11:42 Temp 98.3 98.2 98.3 98.2 Pulse 77 83 Resp 20 20 20 18 B/P 104/68 97/60 Pulse Ox 98 98 96 98 O2 Delivery Room Air Room Air Room Air Room Air Intake and Output 06/18/16 06/18/16 06/19/16 15:00 23:00 07:00 Intake Total 360 ml 1360 ml 240 ml Output Total 600 ml 550 ml Balance 360 ml 760 ml -310 ml Problem List Problems Medical Problems: (1) Colitis Status: Acute Assessment UC - improving with steroids iv, will advance diet, possible switch to po steroids tomorrow, cpm CORA LEDEZMA MD Jun 19, 2016 13:30
[2016-06-19 15:00] VITALS: BP 114/62
[2016-06-19] MEDS: CEFTRIAXONE SODIUM 1 GM in IV NORMAL SALINE 50ML 50 ML IV SCH (16:12)
[2016-06-19 19:59] VITALS: BP 107/69
[2016-06-19 23:59] VITALS: BP 109/70
[2016-06-20] MEDS: IV DEXTROSE 5 %-0.45 % NACL 1,000 ML IV SCH ×3 (01:00→18:00)
[2016-06-20 03:41] VITALS: BP 124/68
[2016-06-20] MEDS: MORPHINE IR 15 MG TABLET PO PRN ×4 (04:21→21:23)
[2016-06-20 05:09] LABS: BASO % 0 % (0-3); EOS % 0 % (0-3); HEMATOCRIT 26.3 % (39.0-53.0); HEMOGLOBIN 8.6 g/dL (13.0-17.5); LYMPH # 2.5 x10^3/uL (1.0-4.8); LYMPH % 31 % (24-48); MEAN CORPUSCULAR HEMOGLOBIN 29 pg (25-35); MEAN CORPUSCULAR HGB CONC 33 g/dL (31-37); MEAN CORPUSCULAR VOLUME 87 fL (79-100); MONO % 12 % (0-9); NEUT % 57 % (31-73); PLATELET COUNT 335 x10^3/uL (140-400); RED BLOOD COUNT 3.01 x10^6/uL (4.30-5.70); RED CELL DISTRIBUTION WIDTH 13.9 % (11.5-14.5); WHITE BLOOD COUNT 7.9 x10^3/uL (4.0-11.0)
[2016-06-20 05:37] LABS: CALCIUM 7.8 mg/dL (8.5-10.1); CREATININE 0.7 mg/dL (0.7-1.3); GFR 155.3; POTASSIUM 4.3 mmol/L (3.5-5.1)
[2016-06-20] MEDS: METRONIDAZOLE 500mg PREMIX 100 ML IV SCH ×3 (06:04→21:22)
[2016-06-20 07:00] VITALS: BP 89/59
[2016-06-20] MEDS: methylPREDNISolone SOD SUCC PF 40 MG/ML VIAL. IV SCH ×2 (08:47→21:22)
--- NOTE | 2016-06-20 08:47 | PDOC ---
G I PROGRESS NOTE Reason for Follow-up Ulcerative colitis flare Subjective Pain worse today with increased appetite/bleeding with diarrhea persists Physical Exam Lungs clear CV S1 S2 ABD +BS, soft, nontender Review of Relevant I have reviewed the following items mariella (where applicable) has been applied. Labs Laboratory Tests Test 06/18/16 09:35 06/18/16 13:15 06/19/16 06:40 06/20/16 04:35 White Blood Count 10.2x10^3/uL (4.0-11.0) 10.2x10^3/uL (4.0-11.0) 7.9x10^3/uL (4.0-11.0) Red Blood Count 3.39x10^6/uL (4.30-5.70) 3.13x10^6/uL (4.30-5.70) 3.01x10^6/uL (4.30-5.70) Hemoglobin 9.8g/dL (13.0-17.5) 9.1g/dL (13.0-17.5) 8.6g/dL (13.0-17.5) Hematocrit 29.1% (39.0-53.0) 27.4% (39.0-53.0) 26.3% (39.0-53.0) Mean Corpuscular Volume 86fL (79-100) 88fL (79-100) 87fL (79-100) Mean Corpuscular Hemoglobin 29pg (25-35) 29pg (25-35) 29pg (25-35) Mean Corpuscular Hemoglobin Concent 34g/dL (31-37) 33g/dL (31-37) 33g/dL (31-37) Red Cell Distribution Width 13.7% (11.5-14.5) 13.7% (11.5-14.5) 13.9% (11.5-14.5) Platelet Count 345x10^3/uL (140-400) 323x10^3/uL (140-400) 335x10^3/uL (140-400) Neutrophils (%) (Auto) 47% (31-73) 55% (31-73) 57% (31-73) Lymphocytes (%) (Auto) 40% (24-48) 35% (24-48) 31% (24-48) Monocytes (%) (Auto) 11% (0-9) 10% (0-9) 12% (0-9) Eosinophils (%) (Auto) 2% (0-3) 0% (0-3) 0% (0-3) Basophils (%) (Auto) 0% (0-3) 0% (0-3) 0% (0-3) Neutrophils # (Auto) 4.8x10^3uL (1.8-7.7) 5.7x10^3uL (1.8-7.7) 4.5x10^3uL (1.8-7.7) Lymphocytes # (Auto) 4.1x10^3/uL (1.0-4.8) 3.5x10^3/uL (1.0-4.8) 2.5x10^3/uL (1.0-4.8) Monocytes # (Auto) 1.1x10^3/uL (0.0-1.1) 1.0x10^3/uL (0.0-1.1) 0.9x10^3/uL (0.0-1.1) Eosinophils # (Auto) 0.2x10^3/uL (0.0-0.7) 0.0x10^3/uL (0.0-0.7) 0.0x10^3/uL (0.0-0.7) Basophils # (Auto) 0.0x10^3/uL (0.0-0.2) 0.0x10^3/uL (0.0-0.2) 0.0x10^3/uL (0.0-0.2) Sodium Level 131mmol/L (136-145) 133mmol/L (136-145) 131mmol/L (136-145) Potassium Level 4.1mmol/L (3.5-5.1) 4.1mmol/L (3.5-5.1) 4.3mmol/L (3.5-5.1) Chloride Level 98mmol/L (98-107) 99mmol/L (98-107) 98mmol/L (98-107) Carbon Dioxide Level 25mmol/L (21-32) 25mmol/L (21-32) 25mmol/L (21-32) Anion Gap 8 (6-14) 9 (6-14) 8 (6-14) Blood Urea Nitrogen 11mg/dL (8-26) 6mg/dL (8-26) 6mg/dL (8-26) Creatinine 0.9mg/dL (0.7-1.3) 0.8mg/dL (0.7-1.3) 0.7mg/dL (0.7-1.3) Estimated GFR (Cockcroft-Gault) 116.2 133.1 155.3 Glucose Level 90mg/dL (70-99) 131mg/dL (70-99) 225mg/dL (70-99) Calcium Level 7.8mg/dL (8.5-10.1) 8.0mg/dL (8.5-10.1) 7.8mg/dL (8.5-10.1) Clostridium difficile Toxin (PCR) Negative (Negative) BUN/Creatinine Ratio 8 (6-20) Total Bilirubin 0.2mg/dL (0.2-1.0) Aspartate Amino Transf (AST/SGOT) 14U/L (15-37) Alanine Aminotransferase (ALT/SGPT) 45U/L (16-63) Alkaline Phosphatase 103U/L (46-116) Total Protein 5.9g/dL (6.4-8.2) Albumin 1.5g/dL (3.4-5.0) Albumin/Globulin Ratio 0.3 (1.0-1.7) Laboratory Tests Test 06/20/16 04:35 White Blood Count 7.9x10^3/uL (4.0-11.0) Red Blood Count 3.01x10^6/uL (4.30-5.70) Hemoglobin 8.6g/dL (13.0-17.5) Hematocrit 26.3% (39.0-53.0) Mean Corpuscular Volume 87fL (79-100) Mean Corpuscular Hemoglobin 29pg (25-35) Mean Corpuscular Hemoglobin Concent 33g/dL (31-37) Red Cell Distribution Width 13.9% (11.5-14.5) Platelet Count 335x10^3/uL (140-400) Neutrophils (%) (Auto) 57% (31-73) Lymphocytes (%) (Auto) 31% (24-48) Monocytes (%) (Auto) 12% (0-9) Eosinophils (%) (Auto) 0% (0-3) Basophils (%) (Auto) 0% (0-3) Neutrophils # (Auto) 4.5x10^3uL (1.8-7.7) Lymphocytes # (Auto) 2.5x10^3/uL (1.0-4.8) Monocytes # (Auto) 0.9x10^3/uL (0.0-1.1) Eosinophils # (Auto) 0.0x10^3/uL (0.0-0.7) Basophils # (Auto) 0.0x10^3/uL (0.0-0.2) Sodium Level 131mmol/L (136-145) Potassium Level 4.3mmol/L (3.5-5.1) Chloride Level 98mmol/L (98-107) Carbon Dioxide Level 25mmol/L (21-32) Anion Gap 8 (6-14) Blood Urea Nitrogen 6mg/dL (8-26) Creatinine 0.7mg/dL (0.7-1.3) Estimated GFR (Cockcroft-Gault) 155.3 Glucose Level 225mg/dL (70-99) Calcium Level 7.8mg/dL (8.5-10.1) Medications Current Medications Fentanyl Citrate 25 mcg 25 mcg PRN Q15MIN PRN IV PAIN GREATER THAN 3/10 Last administered on 06/17/16 16:59; Start 06/17/16 at 15:45; Stop 06/18/16 at 15:44; Status DC Sodium Chloride (Iv Sodium Chloride 0.9% 1000ml Bag) 1,000 ml @ 1,000 mls/hr Q1H IV Last administered on 06/17/16 16:51; Start 06/17/16 at 15:33; Stop at 16:46; Status DC Ondansetron HCl (Zofran) 4 mg 1X ONCE IV Last administered on 06/17/16 16:57; Start 06/17/16 at 15:45; Stop 06/17/16 at 16:46; Status DC Iohexol (Omnipaque 300 Mg/ml) 75 ml 1X ONCE IV Last administered on 06/17/16 17:45; Start 06/17/16 at 17:30; Stop 06/17/16 at 17:31; Status DC Info 1 each 1 each PRN DAILY PRN MC SEE COMMENTS; Start 06/17/16 at 17:45; Stop 06/19/16 at 17:44; Status DC Ceftriaxone Sodium 50 ml @ 100 mls/hr 1X ONCE IV Last administered on 19:50; Start 06/17/16 at 18:45; Stop 06/17/16 at 19:14; Status DC Ceftriaxone Sodium 1 gm/ Sodium Chloride 50 ml @ 100 mls/hr Q24H IV Last administered on 06/19/16 16:12; Start 06/18/16 at 18:00 Metronidazole 100 ml @ 100 mls/hr Q8HRS IV Last administered on 06/20/16 06: 04; Start 06/18/16 at 06:00 Metronidazole (FLAGYL 500Mmg PREMIX) 100 ml @ 100 mls/hr 1X ONCE IV Last administered on 06/17/16 21:04; Start 06/17/16 at 18:45; Stop 06/17/16 at 19:44; Status DC Ondansetron HCl (Zofran) 4 mg PRN Q8HRS PRN IV NAUSEA/VOMITING Last administered on 06/18/16 08:38; Start 06/17/16 at 18:45; Stop 06/18/16 at 18:44 ; Status DC Morphine Sulfate 4 mg PRN Q2HR PRN IV PAIN Last administered on 06/18/16 10:38 ; Start 06/17/16 at 18:45; Stop 06/18/16 at 18:44; Status DC Acetaminophen (Tylenol) 650 mg PRN Q4HRS PRN PO FEVER Last administered on 06/18 10:52; Start 06/17/16 at 18:45; Stop 06/18/16 at 18:44; Status DC Methylprednisolone Sodium Succinate 40 mg 40 mg Q12HR IV Last administered on 20:48; Start 06/18/16 at 10:00 Dextrose/Sodium Chloride (Iv D5% - 1/2 NS) 1,000 ml @ 100 mls/hr Q10H IV Last administered on 06/20/16 01:00; Start 06/18/16 at 16:00 Morphine Sulfate (Morphine Ir) 15 mg PRN Q4HRS PRN PO PAIN Last administered on 06/20/16 04:21; Start 06/18/16 at 15:30 Phenyleph/Shark Oil/Min Oil/Petrol (Preparation H) 1 christine PRN Q4HRS PRN RC RECTAL PAIN; Start 06/18/16 at 15:30 Active Scripts Active Reported One Daily (Multivitamin) 1 Each Tablet 1 Each PO DAILY Prednisone 20 Mg Tablet 1 Tab PO HS [boost oral liquid] Nystatin 100,000 Unit/1 Ml Oral.susp 5 Ml PO BID Acetaminophen 500 Mg Tablet 1,000 Mg PO PRN BID PRN Tigan (Trimethobenzamide Hcl) 100 Mg/1 Ml Vial 100 Mg IM PRN BID Prednisone 20 Mg Tablet 40 Mg PO DAILY Caplet (Pnv95/Ferrous Fumarate/FA) 1 Each Tablet 1 Each PO DAILY Loperamide (Loperamide Hcl) 2 Mg Tablet 2 Tab PO PRN DAILY PRN Hydroxyzine Hcl 25 Mg Tablet 1 Tab PO BID Vitals/I & O Vital Sign - Last 24 Hours 06/19/16 06/19/16 06/19/16 06/19/16 10:56 11:00 15:00 16:12 Temp 98.2 98.2 98.2 98.2 Pulse 83 80 Resp 20 20 20 18 B/P 97/60 114/62 Pulse Ox 98 96 99 99 O2 Delivery Room Air Room Air Room Air Room Air 06/19/16 06/19/16 06/19/16 06/19/16 17:12 19:59 20:00 21:10 Temp 98.1 98.1 Pulse 79 Resp 20 20 B/P 107/69 Pulse Ox 99 99 O2 Delivery Room Air Room Air Room Air 06/19/16 06/20/16 06/20/16 06/20/16 23:59 03:41 04:21 05:21 Temp 98.4 98.5 98.4 98.5 Pulse 83 97 Resp 18 18 B/P 109/70 124/68 Pulse Ox 98 99 99 99 O2 Delivery Room Air Room Air Room Air Room Air 06/20/16 07:00 Temp 98.4 98.4 Pulse 77 Resp 20 B/P 89/59 Pulse Ox 99 O2 Delivery Room Air Intake and Output 06/19/16 06/19/16 06/20/16 15:00 23:00 07:00 Intake Total 700 ml 220 ml 2280 ml Output Total 1000 ml Balance 700 ml 220 ml 1280 ml Problem List Problems Medical Problems: (1) Colitis Status: Acute Assessment Ulcerative colitis- with flare and persistent pain/diarrhea, continue with IV steroids, reassess tomorrow CORA LEDEZMA MD Jun 20, 2016 08:47
[2016-06-20 11:00] VITALS: BP 111/73
--- NOTE | 2016-06-20 14:07 | PDOC ---
PROGRESS NOTES Chief Complaint Chief Complaint 1. Acute abdominal pain 2. Ulcerative colitis flare 3. Bloody diarrhea 4. Weight loss 5. Anemia of blood loss 6. Severe malnutrition on POA 7. H/o C Diff -treated w/ Flagyl History of Present Illness History of Present Illness Patient awake, alert, and oriented when seen this AM. 2 Corrections officers present and at bedside again today. Pt complaining of abdominal pain again today. Was able to eat some of his food this morning but appetite still not back to normal. Pt stating that does well depending on the food he tries. He did have another episode of blood in his stool again today. All questions and concerns answered. No other complaints Vitals Vitals Vital Signs Date Time Temp Pulse Resp B/P Pulse Ox O2 Delivery O2 Flow Rate FiO2 06/20/16 11:00 98.5 80 20 111/73 100 Room Air 98.5 Physical Exam General: Alert, Oriented X3, Cooperative, No acute distress Heart: Regular rate, Normal S1, Normal S2, No murmurs Lungs: Clear, Other (no wheezes or crackles) Abdomen: Normal bowel sounds, Soft, Other (tender, thin, ) Extremities: No clubbing, No cyanosis, No edema Skin: No rashes, No significant lesion Labs LABS Laboratory Tests Test 06/20/16 04:35 White Blood Count 7.9x10^3/uL (4.0-11.0) Red Blood Count 3.01x10^6/uL (4.30-5.70) Hemoglobin 8.6g/dL (13.0-17.5) Hematocrit 26.3% (39.0-53.0) Mean Corpuscular Volume 87fL (79-100) Mean Corpuscular Hemoglobin 29pg (25-35) Mean Corpuscular Hemoglobin Concent 33g/dL (31-37) Red Cell Distribution Width 13.9% (11.5-14.5) Platelet Count 335x10^3/uL (140-400) Neutrophils (%) (Auto) 57% (31-73) Lymphocytes (%) (Auto) 31% (24-48) Monocytes (%) (Auto) 12% (0-9) Eosinophils (%) (Auto) 0% (0-3) Basophils (%) (Auto) 0% (0-3) Neutrophils # (Auto) 4.5x10^3uL (1.8-7.7) Lymphocytes # (Auto) 2.5x10^3/uL (1.0-4.8) Monocytes # (Auto) 0.9x10^3/uL (0.0-1.1) Eosinophils # (Auto) 0.0x10^3/uL (0.0-0.7) Basophils # (Auto) 0.0x10^3/uL (0.0-0.2) Sodium Level 131mmol/L (136-145) Potassium Level 4.3mmol/L (3.5-5.1) Chloride Level 98mmol/L (98-107) Carbon Dioxide Level 25mmol/L (21-32) Anion Gap 8 (6-14) Blood Urea Nitrogen 6mg/dL (8-26) Creatinine 0.7mg/dL (0.7-1.3) Estimated GFR (Cockcroft-Gault) 155.3 Glucose Level 225mg/dL (70-99) Calcium Level 7.8mg/dL (8.5-10.1) Review of Systems Review of Systems Complaining of Abdominal Pain Complaining of Blood in Stool All other ROS negative. Assessment and Plan Assessmemt and Plan Problems Medical Problems: (1) Colitis Status: Acute 1. Acute abdominal pain 2. Ulcerative colitis flare 3. Bloody diarrhea 4. Weight loss 5. Anemia of blood loss 6. Severe malnutrition on POA 7. H/o C Diff -treated w/ Flagyl Plan: -Continue to monitor the patient per floor protocol -Recheck daily labs in AM -Appreciate GI input - Plan is to continue the pt on the IV Steroids to help w/ the UC Flare -Continuing the Antibiotics- Rocephin and Metronidazole -Continue Morphine for pain -Continue to Advance diet as tolerated - Asked pt today if he would prefer Clear Liquid Diet but pt said he was fine with a selective regular diet at this time -SHALOM RN; VSS; No new issues at this time Problems: Comment Review of Relevant I have reviewed the following items mariella (where applicable) has been applied. Labs Laboratory Tests Test 06/19/16 06:40 06/20/16 04:35 White Blood Count 10.2x10^3/uL (4.0-11.0) 7.9x10^3/uL (4.0-11.0) Red Blood Count 3.13x10^6/uL (4.30-5.70) 3.01x10^6/uL (4.30-5.70) Hemoglobin 9.1g/dL (13.0-17.5) 8.6g/dL (13.0-17.5) Hematocrit 27.4% (39.0-53.0) 26.3% (39.0-53.0) Mean Corpuscular Volume 88fL (79-100) 87fL (79-100) Mean Corpuscular Hemoglobin 29pg (25-35) 29pg (25-35) Mean Corpuscular Hemoglobin Concent 33g/dL (31-37) 33g/dL (31-37) Red Cell Distribution Width 13.7% (11.5-14.5) 13.9% (11.5-14.5) Platelet Count 323x10^3/uL (140-400) 335x10^3/uL (140-400) Neutrophils (%) (Auto) 55% (31-73) 57% (31-73) Lymphocytes (%) (Auto) 35% (24-48) 31% (24-48) Monocytes (%) (Auto) 10% (0-9) 12% (0-9) Eosinophils (%) (Auto) 0% (0-3) 0% (0-3) Basophils (%) (Auto) 0% (0-3) 0% (0-3) Neutrophils # (Auto) 5.7x10^3uL (1.8-7.7) 4.5x10^3uL (1.8-7.7) Lymphocytes # (Auto) 3.5x10^3/uL (1.0-4.8) 2.5x10^3/uL (1.0-4.8) Monocytes # (Auto) 1.0x10^3/uL (0.0-1.1) 0.9x10^3/uL (0.0-1.1) Eosinophils # (Auto) 0.0x10^3/uL (0.0-0.7) 0.0x10^3/uL (0.0-0.7) Basophils # (Auto) 0.0x10^3/uL (0.0-0.2) 0.0x10^3/uL (0.0-0.2) Sodium Level 133mmol/L (136-145) 131mmol/L (136-145) Potassium Level 4.1mmol/L (3.5-5.1) 4.3mmol/L (3.5-5.1) Chloride Level 99mmol/L (98-107) 98mmol/L (98-107) Carbon Dioxide Level 25mmol/L (21-32) 25mmol/L (21-32) Anion Gap 9 (6-14) 8 (6-14) Blood Urea Nitrogen 6mg/dL (8-26) 6mg/dL (8-26) Creatinine 0.8mg/dL (0.7-1.3) 0.7mg/dL (0.7-1.3) Estimated GFR (Cockcroft-Gault) 133.1 155.3 BUN/Creatinine Ratio 8 (6-20) Glucose Level 131mg/dL (70-99) 225mg/dL (70-99) Calcium Level 8.0mg/dL (8.5-10.1) 7.8mg/dL (8.5-10.1) Total Bilirubin 0.2mg/dL (0.2-1.0) Aspartate Amino Transf (AST/SGOT) 14U/L (15-37) Alanine Aminotransferase (ALT/SGPT) 45U/L (16-63) Alkaline Phosphatase 103U/L (46-116) Total Protein 5.9g/dL (6.4-8.2) Albumin 1.5g/dL (3.4-5.0) Albumin/Globulin Ratio 0.3 (1.0-1.7) Laboratory Tests Test 06/20/16 04:35 White Blood Count 7.9x10^3/uL (4.0-11.0) Red Blood Count 3.01x10^6/uL (4.30-5.70) Hemoglobin 8.6g/dL (13.0-17.5) Hematocrit 26.3% (39.0-53.0) Mean Corpuscular Volume 87fL (79-100) Mean Corpuscular Hemoglobin 29pg (25-35) Mean Corpuscular Hemoglobin Concent 33g/dL (31-37) Red Cell Distribution Width 13.9% (11.5-14.5) Platelet Count 335x10^3/uL (140-400) Neutrophils (%) (Auto) 57% (31-73) Lymphocytes (%) (Auto) 31% (24-48) Monocytes (%) (Auto) 12% (0-9) Eosinophils (%) (Auto) 0% (0-3) Basophils (%) (Auto) 0% (0-3) Neutrophils # (Auto) 4.5x10^3uL (1.8-7.7) Lymphocytes # (Auto) 2.5x10^3/uL (1.0-4.8) Monocytes # (Auto) 0.9x10^3/uL (0.0-1.1) Eosinophils # (Auto) 0.0x10^3/uL (0.0-0.7) Basophils # (Auto) 0.0x10^3/uL (0.0-0.2) Sodium Level 131mmol/L (136-145) Potassium Level 4.3mmol/L (3.5-5.1) Chloride Level 98mmol/L (98-107) Carbon Dioxide Level 25mmol/L (21-32) Anion Gap 8 (6-14) Blood Urea Nitrogen 6mg/dL (8-26) Creatinine 0.7mg/dL (0.7-1.3) Estimated GFR (Cockcroft-Gault) 155.3 Glucose Level 225mg/dL (70-99) Calcium Level 7.8mg/dL (8.5-10.1) Medications Current Medications Fentanyl Citrate 25 mcg 25 mcg PRN Q15MIN PRN IV PAIN GREATER THAN 3/10 Last administered on 06/17/16 16:59; Start 06/17/16 at 15:45; Stop 06/18/16 at 15:44; Status DC Sodium Chloride (Iv Sodium Chloride 0.9% 1000ml Bag) 1,000 ml @ 1,000 mls/hr Q1H IV Last administered on 06/17/16 16:51; Start 06/17/16 at 15:33; Stop at 16:46; Status DC Ondansetron HCl (Zofran) 4 mg 1X ONCE IV Last administered on 06/17/16 16:57; Start 06/17/16 at 15:45; Stop 06/17/16 at 16:46; Status DC Iohexol (Omnipaque 300 Mg/ml) 75 ml 1X ONCE IV Last administered on 06/17/16 17:45; Start 06/17/16 at 17:30; Stop 06/17/16 at 17:31; Status DC Info 1 each 1 each PRN DAILY PRN MC SEE COMMENTS; Start 06/17/16 at 17:45; Stop 06/19/16 at 17:44; Status DC Ceftriaxone Sodium 50 ml @ 100 mls/hr 1X ONCE IV Last administered on 19:50; Start 06/17/16 at 18:45; Stop 06/17/16 at 19:14; Status DC Ceftriaxone Sodium 1 gm/ Sodium Chloride 50 ml @ 100 mls/hr Q24H IV Last administered on 06/19/16 16:12; Start 06/18/16 at 18:00 Metronidazole 100 ml @ 100 mls/hr Q8HRS IV Last administered on 06/20/16 13: 46; Start 06/18/16 at 06:00 Metronidazole (FLAGYL 500Mmg PREMIX) 100 ml @ 100 mls/hr 1X ONCE IV Last administered on 06/17/16 21:04; Start 06/17/16 at 18:45; Stop 06/17/16 at 19:44; Status DC Ondansetron HCl (Zofran) 4 mg PRN Q8HRS PRN IV NAUSEA/VOMITING Last administered on 06/18/16 08:38; Start 06/17/16 at 18:45; Stop 06/18/16 at 18:44 ; Status DC Morphine Sulfate 4 mg PRN Q2HR PRN IV PAIN Last administered on 06/18/16 10:38 ; Start 06/17/16 at 18:45; Stop 06/18/16 at 18:44; Status DC Acetaminophen (Tylenol) 650 mg PRN Q4HRS PRN PO FEVER Last administered on 06/18 10:52; Start 06/17/16 at 18:45; Stop 06/18/16 at 18:44; Status DC Methylprednisolone Sodium Succinate 40 mg 40 mg Q12HR IV Last administered on 08:47; Start 06/18/16 at 10:00 Dextrose/Sodium Chloride (Iv D5% - 1/2 NS) 1,000 ml @ 100 mls/hr Q10H IV Last administered on 06/20/16 12:36; Start 06/18/16 at 16:00 Morphine Sulfate (Morphine Ir) 15 mg PRN Q4HRS PRN PO PAIN Last administered on 06/20/16 08:47; Start 06/18/16 at 15:30 Phenyleph/Shark Oil/Min Oil/Petrol (Preparation H) 1 christine PRN Q4HRS PRN RC RECTAL PAIN; Start 06/18/16 at 15:30 Active Scripts Active Reported One Daily (Multivitamin) 1 Each Tablet 1 Each PO DAILY Prednisone 20 Mg Tablet 1 Tab PO HS [boost oral liquid] Nystatin 100,000 Unit/1 Ml Oral.susp 5 Ml PO BID Acetaminophen 500 Mg Tablet 1,000 Mg PO PRN BID PRN Tigan (Trimethobenzamide Hcl) 100 Mg/1 Ml Vial 100 Mg IM PRN BID Prednisone 20 Mg Tablet 40 Mg PO DAILY Caplet (Pnv95/Ferrous Fumarate/FA) 1 Each Tablet 1 Each PO DAILY Loperamide (Loperamide Hcl) 2 Mg Tablet 2 Tab PO PRN DAILY PRN Hydroxyzine Hcl 25 Mg Tablet 1 Tab PO BID Vitals/I & O Vital Sign - Last 24 Hours 06/19/16 06/19/16 06/19/16 06/19/16 15:00 16:12 19:59 20:00 Temp 98.2 98.1 98.2 98.1 Pulse 80 79 Resp 20 18 20 B/P 114/62 107/69 Pulse Ox 99 99 99 O2 Delivery Room Air Room Air Room Air Room Air 06/19/16 06/19/16 06/20/16 06/20/16 21:10 23:59 03:41 04:21 Temp 98.4 98.5 98.4 98.5 Pulse 83 97 Resp 18 18 B/P 109/70 124/68 Pulse Ox 99 98 99 99 O2 Delivery Room Air Room Air Room Air Room Air 06/20/16 06/20/16 06/20/16 06/20/16 07:00 07:35 08:47 09:47 Temp 98.4 98.4 Pulse 77 Resp 20 18 18 B/P 89/59 Pulse Ox 99 99 100 O2 Delivery Room Air Room Air Room Air Room Air 06/20/16 11:00 Temp 98.5 98.5 Pulse 80 Resp 20 B/P 111/73 Pulse Ox 100 O2 Delivery Room Air Intake and Output 06/19/16 06/19/16 06/20/16 15:00 23:00 07:00 Intake Total 700 ml 220 ml 2280 ml Output Total 1000 ml Balance 700 ml 220 ml 1280 ml SARA BELLA III DO Jun 20, 2016 14:07
[2016-06-20 15:00] VITALS: BP 102/61
[2016-06-20] MEDS: CEFTRIAXONE SODIUM 1 GM in IV NORMAL SALINE 50ML 50 ML IV SCH (17:33)
[2016-06-20 19:00] VITALS: BP 106/68
[2016-06-20 22:59] VITALS: BP 110/65
[2016-06-21] MEDS: IV DEXTROSE 5 %-0.45 % NACL 1,000 ML IV SCH ×2 (02:30→14:30)
[2016-06-21] MEDS: MORPHINE IR 15 MG TABLET PO PRN ×4 (02:30→22:22)
[2016-06-21 03:00] VITALS: BP 106/58
[2016-06-21] MEDS: METRONIDAZOLE 500mg PREMIX 100 ML IV SCH ×3 (05:58→22:22)
[2016-06-21 07:00] VITALS: BP 115/67
[2016-06-21 07:04] LABS: CALCIUM 8.1 mg/dL (8.5-10.1); CREATININE 0.7 mg/dL (0.7-1.3); GFR 155.3; POTASSIUM 4.3 mmol/L (3.5-5.1)
[2016-06-21 07:18] LABS: BASO % 0 % (0-3); EOS % 0 % (0-3); HEMATOCRIT 28.6 % (39.0-53.0); HEMOGLOBIN 9.3 g/dL (13.0-17.5); LYMPH # 2.8 x10^3/uL (1.0-4.8); LYMPH % 29 % (24-48); MEAN CORPUSCULAR HEMOGLOBIN 29 pg (25-35); MEAN CORPUSCULAR HGB CONC 32 g/dL (31-37); MEAN CORPUSCULAR VOLUME 88 fL (79-100); MONO % 9 % (0-9); NEUT % 62 % (31-73); PLATELET COUNT 404 x10^3/uL (140-400); RED BLOOD COUNT 3.25 x10^6/uL (4.30-5.70); RED CELL DISTRIBUTION WIDTH 13.8 % (11.5-14.5); WHITE BLOOD COUNT 9.8 x10^3/uL (4.0-11.0)
[2016-06-21] MEDS: methylPREDNISolone SOD SUCC PF 40 MG/ML VIAL. IV SCH (09:45)
[2016-06-21 10:48] VITALS: BP 111/80
--- NOTE | 2016-06-21 11:58 | PDOC ---
Subjective: Subjective: Was getting better, feels advancing diet caused worsening of symptoms. Saw port purser this morning, now has a new diet plan which he is pleased with - feels this will be less aggravating to his colon. Pain is improved. Has had 5-10 loose bloody stools today. Objective: Objective: Per RN - ongoing bloody stools. Vital Signs: Vital Signs Date Time Temp Pulse Resp B/P Pulse Ox O2 Delivery O2 Flow Rate FiO2 06/21/16 10:48 98.3 101 17 111/80 100 Room Air 98.3 Labs: Laboratory Tests Test 06/21/16 06:10 White Blood Count 9.8x10^3/uL Red Blood Count 3.25x10^6/uL Hemoglobin 9.3g/dL Hematocrit 28.6% Mean Corpuscular Volume 88fL Mean Corpuscular Hemoglobin 29pg Mean Corpuscular Hemoglobin Concent 32g/dL Red Cell Distribution Width 13.8% Platelet Count 404x10^3/uL Neutrophils (%) (Auto) 62% Lymphocytes (%) (Auto) 29% Monocytes (%) (Auto) 9% Eosinophils (%) (Auto) 0% Basophils (%) (Auto) 0% Neutrophils # (Auto) 6.1x10^3uL Lymphocytes # (Auto) 2.8x10^3/uL Monocytes # (Auto) 0.9x10^3/uL Eosinophils # (Auto) 0.0x10^3/uL Basophils # (Auto) 0.0x10^3/uL Sodium Level 135mmol/L Potassium Level 4.3mmol/L Chloride Level 99mmol/L Carbon Dioxide Level 28mmol/L Anion Gap 8 Blood Urea Nitrogen 5mg/dL Creatinine 0.7mg/dL Estimated GFR (Cockcroft-Gault) 155.3 Glucose Level 164mg/dL Calcium Level 8.1mg/dL PE: GEN: NAD LUNGS: CTAB HEART: RRR ABD: S/ND/NT NEURO/PSYCH: A & O 3 A/P: Ulcerative colitis -flare w/ bloody diarrhea and abd pain, onset 04/2016 -CT last week w/ thickening in majority of colon -h/o C Diff, neg here -on IV steroids, Hgb stable -- Will review w/ Dr. Ya. ALEXIS RIGGS Jun 21, 2016 11:57
[2016-06-21 15:21] VITALS: BP 102/63
--- NOTE | 2016-06-21 16:36 | PDOC ---
PROGRESS NOTES Chief Complaint Chief Complaint error MEREDITH FLYNN MD Jun 21, 2016 16:36
[2016-06-21] MEDS: CEFTRIAXONE SODIUM 1 GM in IV NORMAL SALINE 50ML 50 ML IV SCH (17:57)
[2016-06-21 19:00] VITALS: BP 87/61
[2016-06-21] MEDS ORDERED: DEXTROSE 50% 25 GM / 50ML DISP.SYRIN. IV PRN (19:15)
--- NOTE | 2016-06-21 19:19 | PDOC ---
PROGRESS NOTES Chief Complaint Chief Complaint Acute abdominal pain ASSESSMENT AND PLAN: 1. Ulcerative colitis flare: on prednisone. states he had 15+ bloody BM today. switch to NPO 2. Malnutrition: mod-severe. 2/2 ?UC, poor nutrition. start PPN for now while NPO. supplements as tolerated 3. Anemia: 2/2 acute blood loss as well as chronic inflammation. check anemia labs 4. DM: unmasked with steroids. cover with ISS 5. Hx DVT: no lovenox while acutely bleeding. SCDs in place 6. Hx C.diff Vitals Vitals Vital Signs Date Time Temp Pulse Resp B/P Pulse Ox O2 Delivery O2 Flow Rate FiO2 06/21/16 18:00 Room Air 06/21/16 15:21 98.8 92 18 102/63 100 98.8 Physical Exam General: Alert, Oriented X3, Cooperative, No acute distress Heart: Regular rate Lungs: Clear Abdomen: Normal bowel sounds, Soft, No tenderness Extremities: No edema Skin: No rashes Labs LABS Laboratory Tests Test 06/21/16 06:10 White Blood Count 9.8x10^3/uL (4.0-11.0) Red Blood Count 3.25x10^6/uL (4.30-5.70) Hemoglobin 9.3g/dL (13.0-17.5) Hematocrit 28.6% (39.0-53.0) Mean Corpuscular Volume 88fL (79-100) Mean Corpuscular Hemoglobin 29pg (25-35) Mean Corpuscular Hemoglobin Concent 32g/dL (31-37) Red Cell Distribution Width 13.8% (11.5-14.5) Platelet Count 404x10^3/uL (140-400) Neutrophils (%) (Auto) 62% (31-73) Lymphocytes (%) (Auto) 29% (24-48) Monocytes (%) (Auto) 9% (0-9) Eosinophils (%) (Auto) 0% (0-3) Basophils (%) (Auto) 0% (0-3) Neutrophils # (Auto) 6.1x10^3uL (1.8-7.7) Lymphocytes # (Auto) 2.8x10^3/uL (1.0-4.8) Monocytes # (Auto) 0.9x10^3/uL (0.0-1.1) Eosinophils # (Auto) 0.0x10^3/uL (0.0-0.7) Basophils # (Auto) 0.0x10^3/uL (0.0-0.2) Sodium Level 135mmol/L (136-145) Potassium Level 4.3mmol/L (3.5-5.1) Chloride Level 99mmol/L (98-107) Carbon Dioxide Level 28mmol/L (21-32) Anion Gap 8 (6-14) Blood Urea Nitrogen 5mg/dL (8-26) Creatinine 0.7mg/dL (0.7-1.3) Estimated GFR (Cockcroft-Gault) 155.3 Glucose Level 164mg/dL (70-99) Calcium Level 8.1mg/dL (8.5-10.1) Review of Systems Review of Systems upset about not getting the food he thinks he should be getting. pain controlled. states has mult bloody BM, upwards of 15 just today MEREDITH FLYNN MD Jun 21, 2016 19:19
[2016-06-21] MEDS: PREDNISONE 20 MG TABLET PO SCH (21:14)
[2016-06-21] MEDS: AA 3%/ELECTROLYTE-TPN SOLN/GLY 1,000 ML IV SCH (21:16)
[2016-06-21 23:00] VITALS: BP 104/71
[2016-06-21] MEDS: DIPHENHYDRAMINE HCL 25 MG CAPSULE PO PRN (23:11)
[2016-06-22 03:00] VITALS: BP 89/56
[2016-06-22] MEDS: MORPHINE IR 15 MG TABLET PO PRN ×4 (03:01→19:19)
[2016-06-22] MEDS: METRONIDAZOLE 500mg PREMIX 100 ML IV SCH ×3 (06:32→23:08)
[2016-06-22 06:48] LABS: BASO % 0 % (0-3); EOS % 0 % (0-3); HEMATOCRIT 28.7 % (39.0-53.0); HEMOGLOBIN 9.6 g/dL (13.0-17.5); LYMPH % 31 % (24-48); MEAN CORPUSCULAR HEMOGLOBIN 29 pg (25-35); MEAN CORPUSCULAR HGB CONC 34 g/dL (31-37); MEAN CORPUSCULAR VOLUME 86 fL (79-100); MONO % 10 % (0-9); NEUT % 59 % (31-73); PLATELET COUNT 444 x10^3/uL (140-400); RED BLOOD COUNT 3.34 x10^6/uL (4.30-5.70); RED CELL DISTRIBUTION WIDTH 14.2 % (11.5-14.5)
[2016-06-22 07:00] VITALS: BP 105/61
[2016-06-22 07:04] LABS: % SAT IRON 7 % (15-34); IRON,SERUM 12 ug/dL (65-175)
[2016-06-22 07:07] LABS: CALCIUM 8.2 mg/dL (8.5-10.1); CREATININE 0.8 mg/dL (0.7-1.3); GFR 133.1; POTASSIUM 4.2 mmol/L (3.5-5.1)
[2016-06-22] MEDS: INSULIN ASPART 300 UNITS/3 ML INSULN.PEN SQ SCH ×3 (08:50→17:19)
[2016-06-22] MEDS: PREDNISONE 20 MG TABLET PO SCH ×2 (08:51→20:50)
[2016-06-22] MEDS: AA 3%/ELECTROLYTE-TPN SOLN/GLY 1,000 ML IV SCH (08:52)
--- NOTE | 2016-06-22 09:03 | PDOC ---
PROGRESS NOTES Chief Complaint Chief Complaint Hematochezia ASSESSMENT AND PLAN: 1. Ulcerative colitis flare: on prednisone. normal BM, but PO intake followed almost immed by blood. strict NPO 2. Malnutrition: mod-severe. 2/2 ?UC, poor nutrition. PPN for now while NPO. 3. Anemia: 2/2 acute blood loss as well as chronic inflammation. severely iron deficient: replete IV 4. DM: unmasked with steroids. cover with ISS 5. Hx DVT: no lovenox while acutely bleeding. SCDs in place 6. Hx C.diff Vitals Vitals Vital Signs Date Time Temp Pulse Resp B/P Pulse Ox O2 Delivery O2 Flow Rate FiO2 06/22/16 07:00 97.9 90 20 105/61 97 Room Air 97.9 Physical Exam General: Alert, Oriented X3, No acute distress Heart: Regular rate Lungs: Clear Abdomen: Normal bowel sounds, Soft Extremities: No edema Skin: No rashes Labs LABS Laboratory Tests Test 06/21/16 21:22 06/22/16 06:00 06/22/16 08:07 Glucose (Fingerstick) 115mg/dL (70-99) 101mg/dL (70-99) White Blood Count 13.0x10^3/uL (4.0-11.0) Red Blood Count 3.34x10^6/uL (4.30-5.70) Hemoglobin 9.6g/dL (13.0-17.5) Hematocrit 28.7% (39.0-53.0) Mean Corpuscular Volume 86fL (79-100) Mean Corpuscular Hemoglobin 29pg (25-35) Mean Corpuscular Hemoglobin Concent 34g/dL (31-37) Red Cell Distribution Width 14.2% (11.5-14.5) Platelet Count 444x10^3/uL (140-400) Neutrophils (%) (Auto) 59% (31-73) Lymphocytes (%) (Auto) 31% (24-48) Monocytes (%) (Auto) 10% (0-9) Eosinophils (%) (Auto) 0% (0-3) Basophils (%) (Auto) 0% (0-3) Neutrophils # (Auto) 7.7x10^3uL (1.8-7.7) Lymphocytes # (Auto) 4.0x10^3/uL (1.0-4.8) Monocytes # (Auto) 1.3x10^3/uL (0.0-1.1) Eosinophils # (Auto) 0.0x10^3/uL (0.0-0.7) Basophils # (Auto) 0.0x10^3/uL (0.0-0.2) Sodium Level 137mmol/L (136-145) Potassium Level 4.2mmol/L (3.5-5.1) Chloride Level 100mmol/L (98-107) Carbon Dioxide Level 29mmol/L (21-32) Anion Gap 8 (6-14) Blood Urea Nitrogen 10mg/dL (8-26) Creatinine 0.8mg/dL (0.7-1.3) Estimated GFR (Cockcroft-Gault) 133.1 Glucose Level 112mg/dL (70-99) Calcium Level 8.2mg/dL (8.5-10.1) Iron Level 12ug/dL (65-175) Total Iron Binding Capacity 176ug/dL (250-450) Iron Saturation 7% (15-34) Ferritin 21ng/mL (26-388) Review of Systems Review of Systems resting comfortably. no c/o MEREDITH FLYNN MD Jun 22, 2016 09:03
--- NOTE | 2016-06-22 09:41 | PDOC ---
Subjective: Subjective: Per pt - more pain today. Ongoing bloody stools. Objective: Objective: Per RN - changed to NPO and started on PPN yesterday. Abd pain ongoing w/ firmness in LLQ around scars. Two stools today - second w/ more blood after drinking Boost. Vital Signs: Vital Signs Date Time Temp Pulse Resp B/P Pulse Ox O2 Delivery O2 Flow Rate FiO2 06/22/16 08:00 Room Air 06/22/16 07:00 97.9 90 20 105/61 97 97.9 Labs: Laboratory Tests Test 06/21/16 21:22 06/22/16 06:00 06/22/16 08:07 Glucose (Fingerstick) 115mg/dL 101mg/dL White Blood Count 13.0x10^3/uL Red Blood Count 3.34x10^6/uL Hemoglobin 9.6g/dL Hematocrit 28.7% Mean Corpuscular Volume 86fL Mean Corpuscular Hemoglobin 29pg Mean Corpuscular Hemoglobin Concent 34g/dL Red Cell Distribution Width 14.2% Platelet Count 444x10^3/uL Neutrophils (%) (Auto) 59% Lymphocytes (%) (Auto) 31% Monocytes (%) (Auto) 10% Eosinophils (%) (Auto) 0% Basophils (%) (Auto) 0% Neutrophils # (Auto) 7.7x10^3uL Lymphocytes # (Auto) 4.0x10^3/uL Monocytes # (Auto) 1.3x10^3/uL Eosinophils # (Auto) 0.0x10^3/uL Basophils # (Auto) 0.0x10^3/uL Sodium Level 137mmol/L Potassium Level 4.2mmol/L Chloride Level 100mmol/L Carbon Dioxide Level 29mmol/L Anion Gap 8 Blood Urea Nitrogen 10mg/dL Creatinine 0.8mg/dL Estimated GFR (Cockcroft-Gault) 133.1 Glucose Level 112mg/dL Calcium Level 8.2mg/dL Iron Level 12ug/dL Total Iron Binding Capacity 176ug/dL Iron Saturation 7% Ferritin 21ng/mL PE: GEN: NAD LUNGS: CTAB HEART: RRR ABD: BS quiet, more tender today - periumbilical to RUQ, also LLQ NEURO/PSYCH: drowsy from pain meds OTHER: guards present A/P: Ulcerative colitis -flare w/ bloody diarrhea and abd pain, onset 04/2016 -CT 06/17 w/ thickening in majority of colon -h/o C Diff, neg here (on Rocephin and Flagyl) -changed to PO steroids yesterday, Hgb stable/improving - note low iron, now on IV iron -started PPN yesterday -- Increased pain today. Reviewed w/ Dr. Ya - will re-image. May need colonoscopy. ALEXIS RIGGS Jun 22, 2016 09:41
[2016-06-22] MEDS: IRON SUCROSE COMPLEX 300 MG in IV NORMAL SALINE 250ML 250 ML IV SCH ×2 (10:51→20:50)
[2016-06-22 11:19] VITALS: BP 100/66
[2016-06-22] MEDS ORDERED: IOHEXOL 300 MG/ML 75 ML VIAL IV ONE (12:00)
[2016-06-22] MEDS ORDERED: IOHEXOL 240 MG/ML 50ML VIAL. PO ONE (12:00)
[2016-06-22 12:21] LABS: INR 1.3 (0.8-1.1); PROTHROMBIN TIME PATIENT 15.5 SEC (11.7-14.0)
[2016-06-22 15:08] VITALS: BP 106/59
--- NOTE | 2016-06-22 16:45 | RAD ---
CT of the abdomen and pelvis with contrast, 06/22/2016: History: Ulcerative colitis, worsening abdominal pain Multidetector CT imaging was performed following oral and IV administration of contrast. Comparison is made to a study from 06/17/2016. No hepatic abnormality is detected. The gallbladder is unremarkable. The pancreas shows no abnormality. The spleen is of normal size. No renal abnormality is detected. The abdominal aorta is unremarkable. No abdominal or pelvic adenopathy is seen. The stomach and small bowel loops are unremarkable. The contrast material has not reached the terminal ileum or colon. There is mild colonic mural thickening best seen at the level of the hepatic flexure. This appears to have improved since the 06/27/2016 study. There is no evidence of bowel obstruction. Surgical sutures are seen related to the proximal sigmoid colon. Fluid is present in the distal colon. No free fluid or free air is evident in the abdomen or pelvis. IMPRESSION: 1. Colonic mural thickening appears improved since 06/17/2016. 2. No new abdominal or pelvic abnormality is detected. PQRS Compliance Statement: One or more of the following individualized dose reduction techniques were utilized for this examination: 1. Automated exposure control 2. Adjustment of the mA and/or kV according to patient size 3. Use of iterative reconstruction technique
--- NOTE | 2016-06-22 18:20 | RAD ---
PROCEDURE AP chest radiograph. HISTORY PICC line placement. COMPARISON None. FINDINGS Cardiac silhouette appears within normal limits for size. No focal infiltrate, pleural effusion, or pneumothorax is seen. Left-sided PICC line is seen with tip projecting at the atriocaval junction, in satisfactory location. IMPRESSION 1. PICC line tip projects at atriocaval junction 2. No acute cardiopulmonary process. Electronically signed by: Sanya Torres MD (Jun 22, 2016 18:19:03)
[2016-06-22] MEDS: CEFTRIAXONE SODIUM 1 GM in IV NORMAL SALINE 50ML 50 ML IV SCH (18:33)
[2016-06-22 19:00] VITALS: BP 100/68
[2016-06-22] MEDS: DIPHENHYDRAMINE HCL 25 MG CAPSULE PO PRN (19:20)
[2016-06-22 23:00] VITALS: BP 99/72
[2016-06-23] MEDS: MORPHINE IR 15 MG TABLET PO PRN ×4 (00:08→20:00)
[2016-06-23] MEDS: AA 3%/ELECTROLYTE-TPN SOLN/GLY 1,000 ML IV SCH ×2 (00:09→08:46)
[2016-06-23 01:13] LABS: FOLIC ACID 7.6 ng/mL (>3.0)
[2016-06-23 03:00] VITALS: BP 102/69
[2016-06-23 05:39] LABS: BASO % 0 % (0-3); EOS % 0 % (0-3); HEMATOCRIT 27.7 % (39.0-53.0); HEMOGLOBIN 8.9 g/dL (13.0-17.5); LYMPH % 28 % (24-48); MEAN CORPUSCULAR HEMOGLOBIN 28 pg (25-35); MEAN CORPUSCULAR HGB CONC 32 g/dL (31-37); MEAN CORPUSCULAR VOLUME 88 fL (79-100); MONO % 8 % (0-9); NEUT % 64 % (31-73); PLATELET COUNT 370 x10^3/uL (140-400); RED BLOOD COUNT 3.17 x10^6/uL (4.30-5.70); RED CELL DISTRIBUTION WIDTH 14.4 % (11.5-14.5); WHITE BLOOD COUNT 14.3 x10^3/uL (4.0-11.0)
[2016-06-23 05:48] LABS: CALCIUM 8.1 mg/dL (8.5-10.1); CREATININE 0.7 mg/dL (0.7-1.3); GFR 155.3; POTASSIUM 4.5 mmol/L (3.5-5.1)
[2016-06-23] MEDS: METRONIDAZOLE 500mg PREMIX 100 ML IV SCH ×3 (06:20→22:25)
[2016-06-23 07:00] VITALS: BP 118/71
[2016-06-23] MEDS: INSULIN ASPART 300 UNITS/3 ML INSULN.PEN SQ SCH ×3 (08:38→17:36)
[2016-06-23] MEDS: PREDNISONE 20 MG TABLET PO SCH ×2 (08:46→20:01)
[2016-06-23] MEDS: IRON SUCROSE COMPLEX 300 MG in IV NORMAL SALINE 250ML 250 ML IV SCH (09:53)
[2016-06-23 11:00] VITALS: BP 128/89
--- NOTE | 2016-06-23 12:19 | PDOC ---
Subjective: Subjective: Per pt - better today w/ less pain. Not eating so diarrhea/bleeding has slowed. Objective: Objective: Per RN - better today. Blood tinged stools overnight. Less pain. NPO w/ plans to start TPN later. Vital Signs: Vital Signs Date Time Temp Pulse Resp B/P Pulse Ox O2 Delivery O2 Flow Rate FiO2 06/23/16 11:00 98.2 78 20 128/89 97 Room Air 98.2 Labs: Laboratory Tests Test 06/22/16 18:16 06/23/16 07:25 06/23/16 11:28 Glucose (Fingerstick) 112mg/dL (70-99) 100mg/dL (70-99) 111mg/dL (70-99) Imaging: CT A/P w/ oral and IV contrast 06/22/16 IMPRESSION: 1. Colonic mural thickening appears improved since 06/17/2016. 2. No new abdominal or pelvic abnormality is detected. PE: GEN: NAD LUNGS: clear anteriorly HEART: RRR ABD: BS+, less tender (from epigastrium to LLQ) NEURO/PSYCH: A & O 3 A/P: Ulcerative colitis -flare w/ bloody diarrhea and abd pain, onset 04/2016 -CT 06/17 w/ thickening in majority of colon, interval CT 06/22 w/ improvement -h/o C Diff, neg here (on Rocephin and Flagyl), some increase in WBC -on PO steroids and IV iron -on PPN w/ plans for TPN -- Improved today w/ improvement also noted on CT. Will stop Rocephin but otherwise continue same. ALEXIS RIGGS Jun 23, 2016 12:19
[2016-06-23 15:00] VITALS: BP 114/79
--- NOTE | 2016-06-23 16:08 | PDOC ---
PROGRESS NOTES Chief Complaint Chief Complaint Hematochezia ASSESSMENT AND PLAN: 1. Ulcerative colitis flare: on prednisone. clinically improving, albeit still bloody stools 2. Malnutrition: mod-severe. 2/2 ?UC, poor nutrition. TPN started 3. Anemia: 2/2 acute blood loss as well as chronic inflammation. severely iron deficient: replete IV 4. DM: unmasked with steroids. cover with ISS 5. Hx DVT: no lovenox while acutely bleeding. SCDs in place 6. Hx C.diff: neg during current admit Vitals Vitals Vital Signs Date Time Temp Pulse Resp B/P Pulse Ox O2 Delivery O2 Flow Rate FiO2 06/23/16 11:00 98.2 78 20 128/89 97 Room Air 98.2 Physical Exam General: Alert, Oriented X3, No acute distress Heart: Regular rate Lungs: Clear Abdomen: Normal bowel sounds, Soft Extremities: No edema Skin: No rashes Labs LABS Laboratory Tests Test 06/22/16 18:16 06/23/16 04:40 06/23/16 07:25 06/23/16 11:28 Glucose (Fingerstick) 112mg/dL (70-99) 100mg/dL (70-99) 111mg/dL (70-99) White Blood Count 14.3x10^3/uL (4.0-11.0) Red Blood Count 3.17x10^6/uL (4.30-5.70) Hemoglobin 8.9g/dL (13.0-17.5) Hematocrit 27.7% (39.0-53.0) Mean Corpuscular Volume 88fL (79-100) Mean Corpuscular Hemoglobin 28pg (25-35) Mean Corpuscular Hemoglobin Concent 32g/dL (31-37) Red Cell Distribution Width 14.4% (11.5-14.5) Platelet Count 370x10^3/uL (140-400) Neutrophils (%) (Auto) 64% (31-73) Lymphocytes (%) (Auto) 28% (24-48) Monocytes (%) (Auto) 8% (0-9) Eosinophils (%) (Auto) 0% (0-3) Basophils (%) (Auto) 0% (0-3) Neutrophils # (Auto) 9.1x10^3uL (1.8-7.7) Lymphocytes # (Auto) 4.0x10^3/uL (1.0-4.8) Monocytes # (Auto) 1.1x10^3/uL (0.0-1.1) Eosinophils # (Auto) 0.1x10^3/uL (0.0-0.7) Basophils # (Auto) 0.0x10^3/uL (0.0-0.2) Sodium Level 133mmol/L (136-145) Potassium Level 4.5mmol/L (3.5-5.1) Chloride Level 98mmol/L (98-107) Carbon Dioxide Level 29mmol/L (21-32) Anion Gap 6 (6-14) Blood Urea Nitrogen 11mg/dL (8-26) Creatinine 0.7mg/dL (0.7-1.3) Estimated GFR (Cockcroft-Gault) 155.3 Glucose Level 115mg/dL (70-99) Calcium Level 8.1mg/dL (8.5-10.1) Magnesium Level 1.7mg/dL (1.8-2.4) Review of Systems Review of Systems decreasing frequency of BM and amount of blood, abd pain better Comment Labs Laboratory Tests Test 06/21/16 21:22 06/22/16 06:00 06/22/16 08:07 06/22/16 11:20 Glucose (Fingerstick) 115mg/dL (70-99) 101mg/dL (70-99) 152mg/dL (70-99) White Blood Count 13.0x10^3/uL (4.0-11.0) Red Blood Count 3.34x10^6/uL (4.30-5.70) Hemoglobin 9.6g/dL (13.0-17.5) Hematocrit 28.7% (39.0-53.0) Mean Corpuscular Volume 86fL (79-100) Mean Corpuscular Hemoglobin 29pg (25-35) Mean Corpuscular Hemoglobin Concent 34g/dL (31-37) Red Cell Distribution Width 14.2% (11.5-14.5) Platelet Count 444x10^3/uL (140-400) Neutrophils (%) (Auto) 59% (31-73) Lymphocytes (%) (Auto) 31% (24-48) Monocytes (%) (Auto) 10% (0-9) Eosinophils (%) (Auto) 0% (0-3) Basophils (%) (Auto) 0% (0-3) Neutrophils # (Auto) 7.7x10^3uL (1.8-7.7) Lymphocytes # (Auto) 4.0x10^3/uL (1.0-4.8) Monocytes # (Auto) 1.3x10^3/uL (0.0-1.1) Eosinophils # (Auto) 0.0x10^3/uL (0.0-0.7) Basophils # (Auto) 0.0x10^3/uL (0.0-0.2) Reticulocyte Count (auto) 1.7% (0.5-2.5) Sodium Level 137mmol/L (136-145) Potassium Level 4.2mmol/L (3.5-5.1) Chloride Level 100mmol/L (98-107) Carbon Dioxide Level 29mmol/L (21-32) Anion Gap 8 (6-14) Blood Urea Nitrogen 10mg/dL (8-26) Creatinine 0.8mg/dL (0.7-1.3) Estimated GFR (Cockcroft-Gault) 133.1 Glucose Level 112mg/dL (70-99) Calcium Level 8.2mg/dL (8.5-10.1) Iron Level 12ug/dL (65-175) Total Iron Binding Capacity 176ug/dL (250-450) Iron Saturation 7% (15-34) Ferritin 21ng/mL (26-388) Vitamin B12 Level 990pg/mL (211-946) Folic Acid (LAB) 7.6ng/mL (>3.0) Test 06/22/16 11:45 06/22/16 18:16 06/23/16 04:40 06/23/16 07:25 Prothrombin Time 15.5SEC (11.7-14.0) Prothromb Time International Ratio 1.3 (0.8-1.1) Glucose (Fingerstick) 112mg/dL (70-99) 100mg/dL (70-99) White Blood Count 14.3x10^3/uL (4.0-11.0) Red Blood Count 3.17x10^6/uL (4.30-5.70) Hemoglobin 8.9g/dL (13.0-17.5) Hematocrit 27.7% (39.0-53.0) Mean Corpuscular Volume 88fL (79-100) Mean Corpuscular Hemoglobin 28pg (25-35) Mean Corpuscular Hemoglobin Concent 32g/dL (31-37) Red Cell Distribution Width 14.4% (11.5-14.5) Platelet Count 370x10^3/uL (140-400) Neutrophils (%) (Auto) 64% (31-73) Lymphocytes (%) (Auto) 28% (24-48) Monocytes (%) (Auto) 8% (0-9) Eosinophils (%) (Auto) 0% (0-3) Basophils (%) (Auto) 0% (0-3) Neutrophils # (Auto) 9.1x10^3uL (1.8-7.7) Lymphocytes # (Auto) 4.0x10^3/uL (1.0-4.8) Monocytes # (Auto) 1.1x10^3/uL (0.0-1.1) Eosinophils # (Auto) 0.1x10^3/uL (0.0-0.7) Basophils # (Auto) 0.0x10^3/uL (0.0-0.2) Sodium Level 133mmol/L (136-145) Potassium Level 4.5mmol/L (3.5-5.1) Chloride Level 98mmol/L (98-107) Carbon Dioxide Level 29mmol/L (21-32) Anion Gap 6 (6-14) Blood Urea Nitrogen 11mg/dL (8-26) Creatinine 0.7mg/dL (0.7-1.3) Estimated GFR (Cockcroft-Gault) 155.3 Glucose Level 115mg/dL (70-99) Calcium Level 8.1mg/dL (8.5-10.1) Magnesium Level 1.7mg/dL (1.8-2.4) Test 06/23/16 11:28 Glucose (Fingerstick) 111mg/dL (70-99) Laboratory Tests Test 06/22/16 18:16 06/23/16 04:40 06/23/16 07:25 06/23/16 11:28 Glucose (Fingerstick) 112mg/dL (70-99) 100mg/dL (70-99) 111mg/dL (70-99) White Blood Count 14.3x10^3/uL (4.0-11.0) Red Blood Count 3.17x10^6/uL (4.30-5.70) Hemoglobin 8.9g/dL (13.0-17.5) Hematocrit 27.7% (39.0-53.0) Mean Corpuscular Volume 88fL (79-100) Mean Corpuscular Hemoglobin 28pg (25-35) Mean Corpuscular Hemoglobin Concent 32g/dL (31-37) Red Cell Distribution Width 14.4% (11.5-14.5) Platelet Count 370x10^3/uL (140-400) Neutrophils (%) (Auto) 64% (31-73) Lymphocytes (%) (Auto) 28% (24-48) Monocytes (%) (Auto) 8% (0-9) Eosinophils (%) (Auto) 0% (0-3) Basophils (%) (Auto) 0% (0-3) Neutrophils # (Auto) 9.1x10^3uL (1.8-7.7) Lymphocytes # (Auto) 4.0x10^3/uL (1.0-4.8) Monocytes # (Auto) 1.1x10^3/uL (0.0-1.1) Eosinophils # (Auto) 0.1x10^3/uL (0.0-0.7) Basophils # (Auto) 0.0x10^3/uL (0.0-0.2) Sodium Level 133mmol/L (136-145) Potassium Level 4.5mmol/L (3.5-5.1) Chloride Level 98mmol/L (98-107) Carbon Dioxide Level 29mmol/L (21-32) Anion Gap 6 (6-14) Blood Urea Nitrogen 11mg/dL (8-26) Creatinine 0.7mg/dL (0.7-1.3) Estimated GFR (Cockcroft-Gault) 155.3 Glucose Level 115mg/dL (70-99) Calcium Level 8.1mg/dL (8.5-10.1) Magnesium Level 1.7mg/dL (1.8-2.4) Medications Current Medications Fentanyl Citrate 25 mcg 25 mcg PRN Q15MIN PRN IV PAIN GREATER THAN 3/10 Last administered on 06/17/16 16:59; Start 06/17/16 at 15:45; Stop 06/18/16 at 15:44; Status DC Sodium Chloride (Iv Sodium Chloride 0.9% 1000ml Bag) 1,000 ml @ 1,000 mls/hr Q1H IV Last administered on 06/17/16 16:51; Start 06/17/16 at 15:33; Stop at 16:46; Status DC Ondansetron HCl (Zofran) 4 mg 1X ONCE IV Last administered on 06/17/16 16:57; Start 06/17/16 at 15:45; Stop 06/17/16 at 16:46; Status DC Iohexol (Omnipaque 300 Mg/ml) 75 ml 1X ONCE IV Last administered on 06/17/16 17:45; Start 06/17/16 at 17:30; Stop 06/17/16 at 17:31; Status DC Info 1 each 1 each PRN DAILY PRN MC SEE COMMENTS; Start 06/17/16 at 17:45; Stop 06/19/16 at 17:44; Status DC Ceftriaxone Sodium 50 ml @ 100 mls/hr 1X ONCE IV Last administered on 19:50; Start 06/17/16 at 18:45; Stop 06/17/16 at 19:14; Status DC Ceftriaxone Sodium 1 gm/ Sodium Chloride 50 ml @ 100 mls/hr Q24H IV Last administered on 06/22/16 18:33; Start 06/18/16 at 18:00; Stop 06/23/16 at 13:20 ; Status DC Metronidazole 100 ml @ 100 mls/hr Q8HRS IV Last administered on 06/23/16 14: 50; Start 06/18/16 at 06:00 Metronidazole (FLAGYL 500Mmg PREMIX) 100 ml @ 100 mls/hr 1X ONCE IV Last administered on 06/17/16 21:04; Start 06/17/16 at 18:45; Stop 06/17/16 at 19:44; Status DC Ondansetron HCl (Zofran) 4 mg PRN Q8HRS PRN IV NAUSEA/VOMITING Last administered on 06/18/16 08:38; Start 06/17/16 at 18:45; Stop 06/18/16 at 18:44 ; Status DC Morphine Sulfate 4 mg PRN Q2HR PRN IV PAIN Last administered on 06/18/16 10:38 ; Start 06/17/16 at 18:45; Stop 06/18/16 at 18:44; Status DC Acetaminophen (Tylenol) 650 mg PRN Q4HRS PRN PO FEVER Last administered on 06/18 10:52; Start 06/17/16 at 18:45; Stop 06/18/16 at 18:44; Status DC Methylprednisolone Sodium Succinate 40 mg 40 mg Q12HR IV Last administered on 09:45; Start 06/18/16 at 10:00; Stop 06/21/16 at 14:26; Status DC Dextrose/Sodium Chloride (Iv D5% - 1/2 NS) 1,000 ml @ 100 mls/hr Q10H IV Last administered on 06/21/16 14:30; Start 06/18/16 at 16:00; Stop 06/21/16 at 22:36 ; Status DC Morphine Sulfate (Morphine Ir) 15 mg PRN Q4HRS PRN PO PAIN Last administered on 06/23/16 14:49; Start 06/18/16 at 15:30 Phenyleph/Shark Oil/Min Oil/Petrol (Preparation H) 1 christine PRN Q4HRS PRN RC RECTAL PAIN; Start 06/18/16 at 15:30 Prednisone (Prednisone) 20 mg BID PO Last administered on 06/23/16 08:46; Start 06/21/16 at 21:00 Insulin Aspart (Novolog) 0-7 UNITS TIDWMEALS SQ ; Start 06/22/16 at 08:00 Dextrose 12.5 gm 12.5 gm PRN Q15MIN PRN IV SEE COMMENTS; Start 06/21/16 at 19: 15 Amino Acids/ Glycerin/ Electrolytes (Procalamine) 1,000 ml @ 80 mls/hr [id number] IV Last administered on 06/23/16 08:46; Start 06/21/16 at 20:00 Diphenhydramine HCl 25 mg 25 mg PRN Q6HRS PRN PO ITCHING Last administered on 19:20; Start 06/21/16 at 22:45 Iron Sucrose/ Sodium Chloride (Venofer/Iv Sodium Chloride 0.9% 250ml) 265 ml @ 90 mls/hr Q12HR IV Last administered on 06/23/16 09:53; Start 06/22/16 at 10: 00; Stop 06/23/16 at 20:00 Iohexol (Omnipaque 240 Mg/ml) 30 ml 1X ONCE PO Last administered on 06/22/16 13:25; Start 06/22/16 at 12:00; Stop 06/22/16 at 12:03; Status DC Iohexol (Omnipaque 300 Mg/ml) 75 ml 1X ONCE IV Last administered on 06/22/16 13:25; Start 06/22/16 at 12:00; Stop 06/22/16 at 12:03; Status DC Active Scripts Active Reported One Daily (Multivitamin) 1 Each Tablet 1 Each PO DAILY Prednisone 20 Mg Tablet 1 Tab PO HS [boost oral liquid] Nystatin 100,000 Unit/1 Ml Oral.susp 5 Ml PO BID Acetaminophen 500 Mg Tablet 1,000 Mg PO PRN BID PRN Tigan (Trimethobenzamide Hcl) 100 Mg/1 Ml Vial 100 Mg IM PRN BID Prednisone 20 Mg Tablet 40 Mg PO DAILY Caplet (Pnv95/Ferrous Fumarate/FA) 1 Each Tablet 1 Each PO DAILY Loperamide (Loperamide Hcl) 2 Mg Tablet 2 Tab PO PRN DAILY PRN Hydroxyzine Hcl 25 Mg Tablet 1 Tab PO BID Vitals/I & O Vital Sign - Last 24 Hours 06/22/16 06/22/16 06/22/16 06/22/16 19:00 19:19 20:20 23:00 Temp 98.7 99.1 98.7 99.1 Pulse 101 100 Resp 20 20 16 20 B/P 100/68 99/72 Pulse Ox 98 100 O2 Delivery Room Air Room Air Room Air Room Air 06/23/16 06/23/16 06/23/16 06/23/16 00:08 03:00 06:15 07:00 Temp 99.1 98.1 99.1 98.1 Pulse 80 Resp 20 20 16 20 B/P 102/69 118/71 Pulse Ox 99 98 O2 Delivery Room Air Room Air 06/23/16 06/23/16 08:00 11:00 Temp 98.2 98.2 Pulse 78 Resp 20 B/P 128/89 Pulse Ox 97 O2 Delivery Room Air Room Air Intake and Output 06/22/16 06/22/16 06/23/16 14:59 22:59 06:59 Intake Total 180 ml 0 ml Output Total 301 ml Balance 180 ml 0 ml -301 ml MEREDITH FLYNN MD Jun 23, 2016 16:08
[2016-06-23 19:00] VITALS: BP 101/62
[2016-06-23] MEDS: DIPHENHYDRAMINE HCL 25 MG CAPSULE PO PRN (20:01)
[2016-06-23 23:26] VITALS: BP 109/72
[2016-06-24] MEDS: AA 3%/ELECTROLYTE-TPN SOLN/GLY 1,000 ML IV SCH ×3 (00:01→22:51)
[2016-06-24] MEDS: MORPHINE IR 15 MG TABLET PO PRN ×5 (02:41→21:52)
[2016-06-24 03:23] VITALS: BP 107/74
[2016-06-24] MEDS: METRONIDAZOLE 500mg PREMIX 100 ML IV SCH ×3 (06:24→21:01)
[2016-06-24 07:00] VITALS: BP 102/73
[2016-06-24 07:01] LABS: CREATININE 0.7 mg/dL (0.7-1.3); GFR 155.3; POTASSIUM 4.2 mmol/L (3.5-5.1)
[2016-06-24 07:14] LABS: BASO % 0 % (0-3); EOS % 1 % (0-3); HEMATOCRIT 27.2 % (39.0-53.0); HEMOGLOBIN 8.8 g/dL (13.0-17.5); LYMPH # 4.3 x10^3/uL (1.0-4.8); LYMPH % 35 % (24-48); MEAN CORPUSCULAR HEMOGLOBIN 28 pg (25-35); MEAN CORPUSCULAR HGB CONC 33 g/dL (31-37); MEAN CORPUSCULAR VOLUME 87 fL (79-100); MONO % 7 % (0-9); NEUT % 57 % (31-73); PLATELET COUNT 355 x10^3/uL (140-400); RED BLOOD COUNT 3.13 x10^6/uL (4.30-5.70); RED CELL DISTRIBUTION WIDTH 14.5 % (11.5-14.5); WHITE BLOOD COUNT 12.5 x10^3/uL (4.0-11.0)
[2016-06-24] MEDS: PREDNISONE 20 MG TABLET PO SCH ×2 (09:37→21:01)
[2016-06-24] MEDS: INSULIN ASPART 300 UNITS/3 ML INSULN.PEN SQ SCH ×3 (09:37→17:00)
[2016-06-24 11:01] VITALS: BP 114/71
--- NOTE | 2016-06-24 11:54 | PDOC ---
PROGRESS NOTES Chief Complaint Chief Complaint 1. Ulcerative colitis flare: 2. Malnutrition: mod-severe. 3. Anemia: 2/2 acute blood loss as well as chronic inflammation. 4. DM: 5. Hx DVT: 6. Hx C.diff: History of Present Illness History of Present Illness Still weak and abdominal pain but pain meds ok NO diarrhea hence no c diff specimen CT shows improving inflammation PLAN: NPO cont tpn cont current IV pain meds- adjust/inc accdgly Steroids, adjust insulin prn dw pt and RN Vitals Vitals Vital Signs Date Time Temp Pulse Resp B/P Pulse Ox O2 Delivery O2 Flow Rate FiO2 06/24/16 11:01 98.1 93 18 114/71 99 Room Air 98.1 Physical Exam General: Alert, Oriented X3, No acute distress Heart: Regular rate Lungs: Clear Abdomen: Normal bowel sounds, Soft Extremities: No edema Skin: No rashes Labs LABS Laboratory Tests Test 06/23/16 17:05 06/23/16 20:45 06/24/16 06:15 06/24/16 07:16 Glucose (Fingerstick) 111mg/dL (70-99) 103mg/dL (70-99) 101mg/dL (70-99) White Blood Count 12.5x10^3/uL (4.0-11.0) Red Blood Count 3.13x10^6/uL (4.30-5.70) Hemoglobin 8.8g/dL (13.0-17.5) Hematocrit 27.2% (39.0-53.0) Mean Corpuscular Volume 87fL (79-100) Mean Corpuscular Hemoglobin 28pg (25-35) Mean Corpuscular Hemoglobin Concent 33g/dL (31-37) Red Cell Distribution Width 14.5% (11.5-14.5) Platelet Count 355x10^3/uL (140-400) Neutrophils (%) (Auto) 57% (31-73) Lymphocytes (%) (Auto) 35% (24-48) Monocytes (%) (Auto) 7% (0-9) Eosinophils (%) (Auto) 1% (0-3) Basophils (%) (Auto) 0% (0-3) Neutrophils # (Auto) 7.1x10^3uL (1.8-7.7) Lymphocytes # (Auto) 4.3x10^3/uL (1.0-4.8) Monocytes # (Auto) 0.9x10^3/uL (0.0-1.1) Eosinophils # (Auto) 0.1x10^3/uL (0.0-0.7) Basophils # (Auto) 0.0x10^3/uL (0.0-0.2) Sodium Level 134mmol/L (136-145) Potassium Level 4.2mmol/L (3.5-5.1) Chloride Level 98mmol/L (98-107) Carbon Dioxide Level 30mmol/L (21-32) Anion Gap 6 (6-14) Blood Urea Nitrogen 11mg/dL (8-26) Creatinine 0.7mg/dL (0.7-1.3) Estimated GFR (Cockcroft-Gault) 155.3 Glucose Level 107mg/dL (70-99) Calcium Level 8.0mg/dL (8.5-10.1) Magnesium Level 1.8mg/dL (1.8-2.4) Test 06/24/16 10:18 Glucose (Fingerstick) 92mg/dL (70-99) Review of Systems Review of Systems abdominal pain NO diarrhea nO fevers weak Assessment and Plan Assessmemt and Plan Problems Medical Problems: (1) Colitis Status: Acute Problems: Comment Review of Relevant I have reviewed the following items mariella (where applicable) has been applied. Labs Laboratory Tests Test 06/22/16 18:16 06/23/16 04:40 06/23/16 07:25 06/23/16 11:28 Glucose (Fingerstick) 112mg/dL (70-99) 100mg/dL (70-99) 111mg/dL (70-99) White Blood Count 14.3x10^3/uL (4.0-11.0) Red Blood Count 3.17x10^6/uL (4.30-5.70) Hemoglobin 8.9g/dL (13.0-17.5) Hematocrit 27.7% (39.0-53.0) Mean Corpuscular Volume 88fL (79-100) Mean Corpuscular Hemoglobin 28pg (25-35) Mean Corpuscular Hemoglobin Concent 32g/dL (31-37) Red Cell Distribution Width 14.4% (11.5-14.5) Platelet Count 370x10^3/uL (140-400) Neutrophils (%) (Auto) 64% (31-73) Lymphocytes (%) (Auto) 28% (24-48) Monocytes (%) (Auto) 8% (0-9) Eosinophils (%) (Auto) 0% (0-3) Basophils (%) (Auto) 0% (0-3) Neutrophils # (Auto) 9.1x10^3uL (1.8-7.7) Lymphocytes # (Auto) 4.0x10^3/uL (1.0-4.8) Monocytes # (Auto) 1.1x10^3/uL (0.0-1.1) Eosinophils # (Auto) 0.1x10^3/uL (0.0-0.7) Basophils # (Auto) 0.0x10^3/uL (0.0-0.2) Sodium Level 133mmol/L (136-145) Potassium Level 4.5mmol/L (3.5-5.1) Chloride Level 98mmol/L (98-107) Carbon Dioxide Level 29mmol/L (21-32) Anion Gap 6 (6-14) Blood Urea Nitrogen 11mg/dL (8-26) Creatinine 0.7mg/dL (0.7-1.3) Estimated GFR (Cockcroft-Gault) 155.3 Glucose Level 115mg/dL (70-99) Calcium Level 8.1mg/dL (8.5-10.1) Magnesium Level 1.7mg/dL (1.8-2.4) Test 06/23/16 17:05 06/23/16 20:45 06/24/16 06:15 06/24/16 07:16 Glucose (Fingerstick) 111mg/dL (70-99) 103mg/dL (70-99) 101mg/dL (70-99) White Blood Count 12.5x10^3/uL (4.0-11.0) Red Blood Count 3.13x10^6/uL (4.30-5.70) Hemoglobin 8.8g/dL (13.0-17.5) Hematocrit 27.2% (39.0-53.0) Mean Corpuscular Volume 87fL (79-100) Mean Corpuscular Hemoglobin 28pg (25-35) Mean Corpuscular Hemoglobin Concent 33g/dL (31-37) Red Cell Distribution Width 14.5% (11.5-14.5) Platelet Count 355x10^3/uL (140-400) Neutrophils (%) (Auto) 57% (31-73) Lymphocytes (%) (Auto) 35% (24-48) Monocytes (%) (Auto) 7% (0-9) Eosinophils (%) (Auto) 1% (0-3) Basophils (%) (Auto) 0% (0-3) Neutrophils # (Auto) 7.1x10^3uL (1.8-7.7) Lymphocytes # (Auto) 4.3x10^3/uL (1.0-4.8) Monocytes # (Auto) 0.9x10^3/uL (0.0-1.1) Eosinophils # (Auto) 0.1x10^3/uL (0.0-0.7) Basophils # (Auto) 0.0x10^3/uL (0.0-0.2) Sodium Level 134mmol/L (136-145) Potassium Level 4.2mmol/L (3.5-5.1) Chloride Level 98mmol/L (98-107) Carbon Dioxide Level 30mmol/L (21-32) Anion Gap 6 (6-14) Blood Urea Nitrogen 11mg/dL (8-26) Creatinine 0.7mg/dL (0.7-1.3) Estimated GFR (Cockcroft-Gault) 155.3 Glucose Level 107mg/dL (70-99) Calcium Level 8.0mg/dL (8.5-10.1) Magnesium Level 1.8mg/dL (1.8-2.4) Test 06/24/16 10:18 Glucose (Fingerstick) 92mg/dL (70-99) Laboratory Tests Test 06/23/16 17:05 06/23/16 20:45 06/24/16 06:15 06/24/16 07:16 Glucose (Fingerstick) 111mg/dL (70-99) 103mg/dL (70-99) 101mg/dL (70-99) White Blood Count 12.5x10^3/uL (4.0-11.0) Red Blood Count 3.13x10^6/uL (4.30-5.70) Hemoglobin 8.8g/dL (13.0-17.5) Hematocrit 27.2% (39.0-53.0) Mean Corpuscular Volume 87fL (79-100) Mean Corpuscular Hemoglobin 28pg (25-35) Mean Corpuscular Hemoglobin Concent 33g/dL (31-37) Red Cell Distribution Width 14.5% (11.5-14.5) Platelet Count 355x10^3/uL (140-400) Neutrophils (%) (Auto) 57% (31-73) Lymphocytes (%) (Auto) 35% (24-48) Monocytes (%) (Auto) 7% (0-9) Eosinophils (%) (Auto) 1% (0-3) Basophils (%) (Auto) 0% (0-3) Neutrophils # (Auto) 7.1x10^3uL (1.8-7.7) Lymphocytes # (Auto) 4.3x10^3/uL (1.0-4.8) Monocytes # (Auto) 0.9x10^3/uL (0.0-1.1) Eosinophils # (Auto) 0.1x10^3/uL (0.0-0.7) Basophils # (Auto) 0.0x10^3/uL (0.0-0.2) Sodium Level 134mmol/L (136-145) Potassium Level 4.2mmol/L (3.5-5.1) Chloride Level 98mmol/L (98-107) Carbon Dioxide Level 30mmol/L (21-32) Anion Gap 6 (6-14) Blood Urea Nitrogen 11mg/dL (8-26) Creatinine 0.7mg/dL (0.7-1.3) Estimated GFR (Cockcroft-Gault) 155.3 Glucose Level 107mg/dL (70-99) Calcium Level 8.0mg/dL (8.5-10.1) Magnesium Level 1.8mg/dL (1.8-2.4) Test 06/24/16 10:18 Glucose (Fingerstick) 92mg/dL (70-99) Microbiology 06/18/16 Stool Culture - Final, Resulted 06/18/16 Stool Culture Result 1 (DEANA) - Final, Resulted 06/18/16 Campylobacter Antigen Assay - Preliminary, Resulted 06/18/16 Campylobactor Result 1 - Preliminary, Resulted 06/18/16 Shiga Toxin Test - Final, Resulted Medications Current Medications Fentanyl Citrate 25 mcg 25 mcg PRN Q15MIN PRN IV PAIN GREATER THAN 3/10 Last administered on 06/17/16 16:59; Start 06/17/16 at 15:45; Stop 06/18/16 at 15:44; Status DC Sodium Chloride (Iv Sodium Chloride 0.9% 1000ml Bag) 1,000 ml @ 1,000 mls/hr Q1H IV Last administered on 06/17/16 16:51; Start 06/17/16 at 15:33; Stop at 16:46; Status DC Ondansetron HCl (Zofran) 4 mg 1X ONCE IV Last administered on 06/17/16 16:57; Start 06/17/16 at 15:45; Stop 06/17/16 at 16:46; Status DC Iohexol (Omnipaque 300 Mg/ml) 75 ml 1X ONCE IV Last administered on 06/17/16 17:45; Start 06/17/16 at 17:30; Stop 06/17/16 at 17:31; Status DC Info 1 each 1 each PRN DAILY PRN MC SEE COMMENTS; Start 06/17/16 at 17:45; Stop 06/19/16 at 17:44; Status DC Ceftriaxone Sodium 50 ml @ 100 mls/hr 1X ONCE IV Last administered on 19:50; Start 06/17/16 at 18:45; Stop 06/17/16 at 19:14; Status DC Ceftriaxone Sodium 1 gm/ Sodium Chloride 50 ml @ 100 mls/hr Q24H IV Last administered on 06/22/16 18:33; Start 06/18/16 at 18:00; Stop 06/23/16 at 13:20 ; Status DC Metronidazole 100 ml @ 100 mls/hr Q8HRS IV Last administered on 06/24/16 06: 24; Start 06/18/16 at 06:00 Metronidazole (FLAGYL 500Mmg PREMIX) 100 ml @ 100 mls/hr 1X ONCE IV Last administered on 2/9/17at 21:04; Start 06/17/16 at 18:45; Stop 06/17/16 at 19:44; Status DC Ondansetron HCl (Zofran) 4 mg PRN Q8HRS PRN IV NAUSEA/VOMITING Last administered on 06/18/16 08:38; Start 06/17/16 at 18:45; Stop 06/18/16 at 18:44 ; Status DC Morphine Sulfate 4 mg PRN Q2HR PRN IV PAIN Last administered on 06/18/16 10:38 ; Start 06/17/16 at 18:45; Stop 06/18/16 at 18:44; Status DC Acetaminophen (Tylenol) 650 mg PRN Q4HRS PRN PO FEVER Last administered on 06/18 10:52; Start 06/17/16 at 18:45; Stop 06/18/16 at 18:44; Status DC Methylprednisolone Sodium Succinate 40 mg 40 mg Q12HR IV Last administered on 09:45; Start 06/18/16 at 10:00; Stop 06/21/16 at 14:26; Status DC Dextrose/Sodium Chloride (Iv D5% - 1/2 NS) 1,000 ml @ 100 mls/hr Q10H IV Last administered on 06/21/16 14:30; Start 06/18/16 at 16:00; Stop 06/21/16 at 22:36 ; Status DC Morphine Sulfate (Morphine Ir) 15 mg PRN Q4HRS PRN PO PAIN Last administered on 06/24/16 09:36; Start 06/18/16 at 15:30 Phenyleph/Shark Oil/Min Oil/Petrol (Preparation H) 1 christine PRN Q4HRS PRN RC RECTAL PAIN; Start 06/18/16 at 15:30 Prednisone (Prednisone) 20 mg BID PO Last administered on 06/24/16 09:37; Start 06/21/16 at 21:00 Insulin Aspart (Novolog) 0-7 UNITS TIDWMEALS SQ ; Start 06/22/16 at 08:00 Dextrose 12.5 gm 12.5 gm PRN Q15MIN PRN IV SEE COMMENTS; Start 06/21/16 at 19: 15 Amino Acids/ Glycerin/ Electrolytes (Procalamine) 1,000 ml @ 80 mls/hr [id number] IV Last administered on 06/24/16 00:01; Start 06/21/16 at 20:00 Diphenhydramine HCl 25 mg 25 mg PRN Q6HRS PRN PO ITCHING Last administered on 20:01; Start 06/21/16 at 22:45 Iron Sucrose/ Sodium Chloride (Venofer/Iv Sodium Chloride 0.9% 250ml) 265 ml @ 90 mls/hr Q12HR IV Last administered on 06/23/16 09:53; Start 06/22/16 at 10: 00; Stop 06/23/16 at 20:00; Status DC Iohexol (Omnipaque 240 Mg/ml) 30 ml 1X ONCE PO Last administered on 06/22/16 13:25; Start 06/22/16 at 12:00; Stop 06/22/16 at 12:03; Status DC Iohexol (Omnipaque 300 Mg/ml) 75 ml 1X ONCE IV Last administered on 06/22/16 13:25; Start 06/22/16 at 12:00; Stop 06/22/16 at 12:03; Status DC Active Scripts Active Reported One Daily (Multivitamin) 1 Each Tablet 1 Each PO DAILY Prednisone 20 Mg Tablet 1 Tab PO HS [boost oral liquid] Nystatin 100,000 Unit/1 Ml Oral.susp 5 Ml PO BID Acetaminophen 500 Mg Tablet 1,000 Mg PO PRN BID PRN Tigan (Trimethobenzamide Hcl) 100 Mg/1 Ml Vial 100 Mg IM PRN BID Prednisone 20 Mg Tablet 40 Mg PO DAILY Caplet (Pnv95/Ferrous Fumarate/FA) 1 Each Tablet 1 Each PO DAILY Loperamide (Loperamide Hcl) 2 Mg Tablet 2 Tab PO PRN DAILY PRN Hydroxyzine Hcl 25 Mg Tablet 1 Tab PO BID Vitals/I & O Vital Sign - Last 24 Hours 06/23/16 06/23/16 06/23/16 06/23/16 15:00 19:00 20:00 20:00 Temp 98.0 99.4 98.0 99.4 Pulse 88 75 Resp 20 18 20 B/P 114/79 101/62 Pulse Ox 96 98 O2 Delivery Room Air Room Air Room Air 06/23/16 06/24/16 06/24/16 06/24/16 23:26 02:41 03:23 07:00 Temp 99.4 98.6 98.1 99.4 98.6 98.1 Pulse 94 76 79 Resp 20 20 18 18 B/P 109/72 107/74 102/73 Pulse Ox 99 99 98 O2 Delivery Room Air Room Air Room Air Room Air 06/24/16 06/24/16 06/24/16 09:36 10:36 11:01 Temp 98.1 98.1 Pulse 93 Resp 18 B/P 114/71 Pulse Ox 99 O2 Delivery Room Air Room Air Room Air Intake and Output 06/23/16 06/23/16 06/24/16 15:00 23:00 07:00 Intake Total 240 ml 360 ml 1100 ml Output Total 1453 ml 300 ml Balance 240 ml -1093 ml 800 ml JOYCE GARCIA MD Jun 24, 2016 11:54
--- NOTE | 2016-06-24 12:50 | PDOC ---
Subjective: Subjective: Per pt - a few stools today, brown w/ some bright red blood. Does feels better overall. Objective: Objective: TPN not started yesterday. Vital Signs: Vital Signs Date Time Temp Pulse Resp B/P Pulse Ox O2 Delivery O2 Flow Rate FiO2 06/24/16 11:01 98.1 93 18 114/71 99 Room Air 98.1 Labs: Laboratory Tests Test 06/23/16 17:05 06/23/16 20:45 06/24/16 07:16 06/24/16 10:18 Glucose (Fingerstick) 111mg/dL (70-99) 103mg/dL (70-99) 101mg/dL (70-99) 92mg/dL (70-99) PE: GEN: NAD LUNGS: CTAB HEART: RRR ABD: BS+, less tender but still discomfort epigastric to LLQ NEURO/PSYCH: A & O 3, flat A/P: Ulcerative colitis -flare w/ bloody diarrhea and abd pain, onset 04/2016 - symptoms improving -CT 06/17 w/ thickening in majority of colon, interval CT 06/22 w/ improvement -h/o C Diff, neg here (on Flagyl) -on PO steroids and IV iron -on PPN w/ plans for TPN (not started yesterday), drinking some water but otherwise NPO -- Improving. D/w RN - plans to start TPN tonight, otherwise will continue same. ALEXIS RIGGS Jun 24, 2016 12:50
[2016-06-24 14:43] VITALS: BP 115/70
[2016-06-24] MEDS: DIPHENHYDRAMINE HCL 25 MG CAPSULE PO PRN (21:05)
[2016-06-24 21:26] VITALS: BP 108/72
[2016-06-24 23:51] VITALS: BP 108/69
[2016-06-25 02:59] VITALS: BP 99/67
[2016-06-25] MEDS: MORPHINE IR 15 MG TABLET PO PRN ×3 (04:03→19:55)
[2016-06-25] MEDS: METRONIDAZOLE 500mg PREMIX 100 ML IV SCH ×3 (06:11→21:55)
[2016-06-25 06:34] LABS: CALCIUM 7.9 mg/dL (8.5-10.1); CREATININE 0.7 mg/dL (0.7-1.3); GFR 155.3; POTASSIUM 4.3 mmol/L (3.5-5.1)
[2016-06-25 07:00] VITALS: BP 111/73
[2016-06-25 07:05] LABS: BASO % 0 % (0-3); EOS % 1 % (0-3); HEMATOCRIT 28.3 % (39.0-53.0); HEMOGLOBIN 9.1 g/dL (13.0-17.5); LYMPH # 4.3 x10^3/uL (1.0-4.8); LYMPH % 29 % (24-48); MEAN CORPUSCULAR HEMOGLOBIN 28 pg (25-35); MEAN CORPUSCULAR HGB CONC 32 g/dL (31-37); MEAN CORPUSCULAR VOLUME 88 fL (79-100); MONO % 8 % (0-9); NEUT % 62 % (31-73); PLATELET COUNT 351 x10^3/uL (140-400); RED BLOOD COUNT 3.22 x10^6/uL (4.30-5.70); RED CELL DISTRIBUTION WIDTH 14.4 % (11.5-14.5); WHITE BLOOD COUNT 14.7 x10^3/uL (4.0-11.0)
[2016-06-25] MEDS: INSULIN ASPART 300 UNITS/3 ML INSULN.PEN SQ SCH ×3 (08:49→17:25)
[2016-06-25] MEDS: PREDNISONE 20 MG TABLET PO SCH ×2 (08:49→19:50)
[2016-06-25 11:00] VITALS: BP 112/90
--- NOTE | 2016-06-25 11:00 | PDOC ---
PROGRESS NOTES Chief Complaint Chief Complaint 1. Ulcerative colitis flare, manifested as bloody stools 2. Malnutrition: mod-severe. 3. Anemia: 2/2 acute blood loss as well as chronic inflammation. 4. DM: 5. Hx DVT: 6. Hx C.diff: History of Present Illness History of Present Illness Still some bloody stools But better abd exam and overall today hemodynamically stable despite loss of blood in stool on PRed 20 BID by gI Interval CT scan shows improvement in inflammation PLAn: Agree with strating liquid diet on PPN Apprently TPN ordered days ago but not yet started Order is in Start IV fentanyl too prn Cont PO morphine Dw pt Vitals Vitals Vital Signs Date Time Temp Pulse Resp B/P Pulse Ox O2 Delivery O2 Flow Rate FiO2 06/25/16 08:49 Room Air 06/25/16 07:00 98.1 77 18 111/73 100 98.1 Physical Exam General: Alert, Oriented X3, No acute distress Heart: Regular rate Lungs: Clear Abdomen: Normal bowel sounds, Soft Extremities: No edema Skin: No rashes Labs LABS Laboratory Tests Test 06/24/16 16:59 06/24/16 20:42 06/25/16 06:15 06/25/16 07:18 Glucose (Fingerstick) 114mg/dL (70-99) 108mg/dL (70-99) 102mg/dL (70-99) White Blood Count 14.7x10^3/uL (4.0-11.0) Red Blood Count 3.22x10^6/uL (4.30-5.70) Hemoglobin 9.1g/dL (13.0-17.5) Hematocrit 28.3% (39.0-53.0) Mean Corpuscular Volume 88fL (79-100) Mean Corpuscular Hemoglobin 28pg (25-35) Mean Corpuscular Hemoglobin Concent 32g/dL (31-37) Red Cell Distribution Width 14.4% (11.5-14.5) Platelet Count 351x10^3/uL (140-400) Neutrophils (%) (Auto) 62% (31-73) Lymphocytes (%) (Auto) 29% (24-48) Monocytes (%) (Auto) 8% (0-9) Eosinophils (%) (Auto) 1% (0-3) Basophils (%) (Auto) 0% (0-3) Neutrophils # (Auto) 9.1x10^3uL (1.8-7.7) Lymphocytes # (Auto) 4.3x10^3/uL (1.0-4.8) Monocytes # (Auto) 1.1x10^3/uL (0.0-1.1) Eosinophils # (Auto) 0.1x10^3/uL (0.0-0.7) Basophils # (Auto) 0.0x10^3/uL (0.0-0.2) Sodium Level 132mmol/L (136-145) Potassium Level 4.3mmol/L (3.5-5.1) Chloride Level 98mmol/L (98-107) Carbon Dioxide Level 30mmol/L (21-32) Anion Gap 4 (6-14) Blood Urea Nitrogen 12mg/dL (8-26) Creatinine 0.7mg/dL (0.7-1.3) Estimated GFR (Cockcroft-Gault) 155.3 Glucose Level 111mg/dL (70-99) Calcium Level 7.9mg/dL (8.5-10.1) Magnesium Level 1.8mg/dL (1.8-2.4) Review of Systems Review of Systems bloody stool, no soa, no cp, soft/loose stools, abd pain Assessment and Plan Assessmemt and Plan Problems Medical Problems: (1) Colitis Status: Acute Problems: Comment Review of Relevant I have reviewed the following items mariella (where applicable) has been applied. Labs Laboratory Tests Test 06/23/16 11:28 06/23/16 17:05 06/23/16 20:45 06/24/16 06:15 Glucose (Fingerstick) 111mg/dL (70-99) 111mg/dL (70-99) 103mg/dL (70-99) White Blood Count 12.5x10^3/uL (4.0-11.0) Red Blood Count 3.13x10^6/uL (4.30-5.70) Hemoglobin 8.8g/dL (13.0-17.5) Hematocrit 27.2% (39.0-53.0) Mean Corpuscular Volume 87fL (79-100) Mean Corpuscular Hemoglobin 28pg (25-35) Mean Corpuscular Hemoglobin Concent 33g/dL (31-37) Red Cell Distribution Width 14.5% (11.5-14.5) Platelet Count 355x10^3/uL (140-400) Neutrophils (%) (Auto) 57% (31-73) Lymphocytes (%) (Auto) 35% (24-48) Monocytes (%) (Auto) 7% (0-9) Eosinophils (%) (Auto) 1% (0-3) Basophils (%) (Auto) 0% (0-3) Neutrophils # (Auto) 7.1x10^3uL (1.8-7.7) Lymphocytes # (Auto) 4.3x10^3/uL (1.0-4.8) Monocytes # (Auto) 0.9x10^3/uL (0.0-1.1) Eosinophils # (Auto) 0.1x10^3/uL (0.0-0.7) Basophils # (Auto) 0.0x10^3/uL (0.0-0.2) Sodium Level 134mmol/L (136-145) Potassium Level 4.2mmol/L (3.5-5.1) Chloride Level 98mmol/L (98-107) Carbon Dioxide Level 30mmol/L (21-32) Anion Gap 6 (6-14) Blood Urea Nitrogen 11mg/dL (8-26) Creatinine 0.7mg/dL (0.7-1.3) Estimated GFR (Cockcroft-Gault) 155.3 Glucose Level 107mg/dL (70-99) Calcium Level 8.0mg/dL (8.5-10.1) Magnesium Level 1.8mg/dL (1.8-2.4) Test 06/24/16 07:16 06/24/16 10:18 06/24/16 16:59 06/24/16 20:42 Glucose (Fingerstick) 101mg/dL (70-99) 92mg/dL (70-99) 114mg/dL (70-99) 108mg/dL (70-99) Test 06/25/16 06:15 06/25/16 07:18 White Blood Count 14.7x10^3/uL (4.0-11.0) Red Blood Count 3.22x10^6/uL (4.30-5.70) Hemoglobin 9.1g/dL (13.0-17.5) Hematocrit 28.3% (39.0-53.0) Mean Corpuscular Volume 88fL (79-100) Mean Corpuscular Hemoglobin 28pg (25-35) Mean Corpuscular Hemoglobin Concent 32g/dL (31-37) Red Cell Distribution Width 14.4% (11.5-14.5) Platelet Count 351x10^3/uL (140-400) Neutrophils (%) (Auto) 62% (31-73) Lymphocytes (%) (Auto) 29% (24-48) Monocytes (%) (Auto) 8% (0-9) Eosinophils (%) (Auto) 1% (0-3) Basophils (%) (Auto) 0% (0-3) Neutrophils # (Auto) 9.1x10^3uL (1.8-7.7) Lymphocytes # (Auto) 4.3x10^3/uL (1.0-4.8) Monocytes # (Auto) 1.1x10^3/uL (0.0-1.1) Eosinophils # (Auto) 0.1x10^3/uL (0.0-0.7) Basophils # (Auto) 0.0x10^3/uL (0.0-0.2) Sodium Level 132mmol/L (136-145) Potassium Level 4.3mmol/L (3.5-5.1) Chloride Level 98mmol/L (98-107) Carbon Dioxide Level 30mmol/L (21-32) Anion Gap 4 (6-14) Blood Urea Nitrogen 12mg/dL (8-26) Creatinine 0.7mg/dL (0.7-1.3) Estimated GFR (Cockcroft-Gault) 155.3 Glucose Level 111mg/dL (70-99) Calcium Level 7.9mg/dL (8.5-10.1) Magnesium Level 1.8mg/dL (1.8-2.4) Glucose (Fingerstick) 102mg/dL (70-99) Laboratory Tests Test 06/24/16 16:59 06/24/16 20:42 06/25/16 06:15 06/25/16 07:18 Glucose (Fingerstick) 114mg/dL (70-99) 108mg/dL (70-99) 102mg/dL (70-99) White Blood Count 14.7x10^3/uL (4.0-11.0) Red Blood Count 3.22x10^6/uL (4.30-5.70) Hemoglobin 9.1g/dL (13.0-17.5) Hematocrit 28.3% (39.0-53.0) Mean Corpuscular Volume 88fL (79-100) Mean Corpuscular Hemoglobin 28pg (25-35) Mean Corpuscular Hemoglobin Concent 32g/dL (31-37) Red Cell Distribution Width 14.4% (11.5-14.5) Platelet Count 351x10^3/uL (140-400) Neutrophils (%) (Auto) 62% (31-73) Lymphocytes (%) (Auto) 29% (24-48) Monocytes (%) (Auto) 8% (0-9) Eosinophils (%) (Auto) 1% (0-3) Basophils (%) (Auto) 0% (0-3) Neutrophils # (Auto) 9.1x10^3uL (1.8-7.7) Lymphocytes # (Auto) 4.3x10^3/uL (1.0-4.8) Monocytes # (Auto) 1.1x10^3/uL (0.0-1.1) Eosinophils # (Auto) 0.1x10^3/uL (0.0-0.7) Basophils # (Auto) 0.0x10^3/uL (0.0-0.2) Sodium Level 132mmol/L (136-145) Potassium Level 4.3mmol/L (3.5-5.1) Chloride Level 98mmol/L (98-107) Carbon Dioxide Level 30mmol/L (21-32) Anion Gap 4 (6-14) Blood Urea Nitrogen 12mg/dL (8-26) Creatinine 0.7mg/dL (0.7-1.3) Estimated GFR (Cockcroft-Gault) 155.3 Glucose Level 111mg/dL (70-99) Calcium Level 7.9mg/dL (8.5-10.1) Magnesium Level 1.8mg/dL (1.8-2.4) Microbiology 2/10/17 Stool Culture - Final, Resulted 06/18/16 Stool Culture Result 1 (DEANA) - Final, Resulted 06/18/16 Campylobacter Antigen Assay - Preliminary, Resulted 06/18/16 Campylobactor Result 1 - Preliminary, Resulted 06/18/16 Shiga Toxin Test - Final, Resulted Medications Current Medications Fentanyl Citrate 25 mcg 25 mcg PRN Q15MIN PRN IV PAIN GREATER THAN 3/10 Last administered on 06/17/16 16:59; Start 06/17/16 at 15:45; Stop 06/18/16 at 15:44; Status DC Sodium Chloride (Iv Sodium Chloride 0.9% 1000ml Bag) 1,000 ml @ 1,000 mls/hr Q1H IV Last administered on 06/17/16 16:51; Start 06/17/16 at 15:33; Stop at 16:46; Status DC Ondansetron HCl (Zofran) 4 mg 1X ONCE IV Last administered on 06/17/16 16:57; Start 06/17/16 at 15:45; Stop 06/17/16 at 16:46; Status DC Iohexol (Omnipaque 300 Mg/ml) 75 ml 1X ONCE IV Last administered on 06/17/16 17:45; Start 06/17/16 at 17:30; Stop 06/17/16 at 17:31; Status DC Info 1 each 1 each PRN DAILY PRN MC SEE COMMENTS; Start 06/17/16 at 17:45; Stop 06/19/16 at 17:44; Status DC Ceftriaxone Sodium 50 ml @ 100 mls/hr 1X ONCE IV Last administered on 19:50; Start 06/17/16 at 18:45; Stop 06/17/16 at 19:14; Status DC Ceftriaxone Sodium 1 gm/ Sodium Chloride 50 ml @ 100 mls/hr Q24H IV Last administered on 06/22/16 18:33; Start 06/18/16 at 18:00; Stop 06/23/16 at 13:20 ; Status DC Metronidazole 100 ml @ 100 mls/hr Q8HRS IV Last administered on 06/25/16 06: 11; Start 06/18/16 at 06:00 Metronidazole (FLAGYL 500Mmg PREMIX) 100 ml @ 100 mls/hr 1X ONCE IV Last administered on 06/17/16 21:04; Start 06/17/16 at 18:45; Stop 06/17/16 at 19:44; Status DC Ondansetron HCl (Zofran) 4 mg PRN Q8HRS PRN IV NAUSEA/VOMITING Last administered on 06/18/16 08:38; Start 06/17/16 at 18:45; Stop 06/18/16 at 18:44 ; Status DC Morphine Sulfate 4 mg PRN Q2HR PRN IV PAIN Last administered on 06/18/16 10:38 ; Start 06/17/16 at 18:45; Stop 06/18/16 at 18:44; Status DC Acetaminophen (Tylenol) 650 mg PRN Q4HRS PRN PO FEVER Last administered on 06/18 10:52; Start 06/17/16 at 18:45; Stop 06/18/16 at 18:44; Status DC Methylprednisolone Sodium Succinate 40 mg 40 mg Q12HR IV Last administered on 09:45; Start 06/18/16 at 10:00; Stop 06/21/16 at 14:26; Status DC Dextrose/Sodium Chloride (Iv D5% - 1/2 NS) 1,000 ml @ 100 mls/hr Q10H IV Last administered on 06/21/16 14:30; Start 06/18/16 at 16:00; Stop 06/21/16 at 22:36 ; Status DC Morphine Sulfate (Morphine Ir) 15 mg PRN Q4HRS PRN PO PAIN Last administered on 06/25/16 08:49; Start 06/18/16 at 15:30 Phenyleph/Shark Oil/Min Oil/Petrol (Preparation H) 1 christine PRN Q4HRS PRN RC RECTAL PAIN; Start 06/18/16 at 15:30 Prednisone (Prednisone) 20 mg BID PO Last administered on 06/25/16 08:49; Start 06/21/16 at 21:00 Insulin Aspart (Novolog) 0-7 UNITS TIDWMEALS SQ ; Start 06/22/16 at 08:00 Dextrose 12.5 gm 12.5 gm PRN Q15MIN PRN IV SEE COMMENTS; Start 06/21/16 at 19: 15 Amino Acids/ Glycerin/ Electrolytes (Procalamine) 1,000 ml @ 80 mls/hr [id number] IV Last administered on 06/24/16 22:51; Start 06/21/16 at 20:00 Diphenhydramine HCl 25 mg 25 mg PRN Q6HRS PRN PO ITCHING Last administered on 21:05; Start 06/21/16 at 22:45 Iron Sucrose/ Sodium Chloride (Venofer/Iv Sodium Chloride 0.9% 250ml) 265 ml @ 90 mls/hr Q12HR IV Last administered on 06/23/16 09:53; Start 06/22/16 at 10: 00; Stop 06/23/16 at 20:00; Status DC Iohexol (Omnipaque 240 Mg/ml) 30 ml 1X ONCE PO Last administered on 06/22/16 13:25; Start 06/22/16 at 12:00; Stop 06/22/16 at 12:03; Status DC Iohexol (Omnipaque 300 Mg/ml) 75 ml 1X ONCE IV Last administered on 06/22/16 13:25; Start 06/22/16 at 12:00; Stop 06/22/16 at 12:03; Status DC Info 1 each PRN DAILY PRN MC SEE COMMENTS; Start 06/25/16 at 05:00 Fentanyl Citrate (Fentanyl 2ml Vial) 50 mcg PRN Q2HR PRN IV PAIN; Start at 09:15 Active Scripts Active Reported One Daily (Multivitamin) 1 Each Tablet 1 Each PO DAILY Prednisone 20 Mg Tablet 1 Tab PO HS [boost oral liquid] Nystatin 100,000 Unit/1 Ml Oral.susp 5 Ml PO BID Acetaminophen 500 Mg Tablet 1,000 Mg PO PRN BID PRN Tigan (Trimethobenzamide Hcl) 100 Mg/1 Ml Vial 100 Mg IM PRN BID Prednisone 20 Mg Tablet 40 Mg PO DAILY Caplet (Pnv95/Ferrous Fumarate/FA) 1 Each Tablet 1 Each PO DAILY Loperamide (Loperamide Hcl) 2 Mg Tablet 2 Tab PO PRN DAILY PRN Hydroxyzine Hcl 25 Mg Tablet 1 Tab PO BID Vitals/I & O Vital Sign - Last 24 Hours 06/24/16 06/24/16 06/24/16 06/24/16 11:01 13:34 14:43 17:31 Temp 98.1 97.7 98.1 97.7 Pulse 93 90 Resp 18 B/P 114/71 115/70 Pulse Ox 99 99 99 O2 Delivery Room Air Room Air Room Air Room Air 06/24/16 06/24/16 06/24/16 06/24/16 20:04 21:26 21:52 22:50 Temp 98.8 98.8 Pulse 83 Resp 20 B/P 108/72 Pulse Ox 98 98 O2 Delivery Room Air Room Air Room Air Room Air 06/24/16 06/25/16 06/25/16 06/25/16 23:51 02:59 04:03 07:00 Temp 98.0 98.6 98.1 98.0 98.6 98.1 Pulse 92 76 77 Resp 20 B/P 108/69 99/67 111/73 Pulse Ox 98 94 100 O2 Delivery Room Air Room Air Room Air Room Air 06/25/16 08:49 O2 Delivery Room Air Intake and Output 06/24/16 06/24/16 06/25/16 15:00 23:00 07:00 Intake Total 100 ml 1100 ml Output Total 250 ml 200 ml 800 ml Balance -150 ml 900 ml -800 ml JOYCE GARCIA MD Jun 25, 2016 11:00
--- NOTE | 2016-06-25 11:14 | PDOC ---
Subjective: Subjective: Better overall but still has pain. 1 stool overnight w/ less blood. Objective: Objective: Per RN - still no TPN. Vital Signs: Vital Signs Date Time Temp Pulse Resp B/P Pulse Ox O2 Delivery O2 Flow Rate FiO2 06/25/16 08:49 Room Air 06/25/16 07:00 98.1 77 18 111/73 100 98.1 Labs: Laboratory Tests Test 06/24/16 16:59 06/24/16 20:42 06/25/16 06:15 06/25/16 07:18 Glucose (Fingerstick) 114mg/dL 108mg/dL 102mg/dL White Blood Count 14.7x10^3/uL Red Blood Count 3.22x10^6/uL Hemoglobin 9.1g/dL Hematocrit 28.3% Mean Corpuscular Volume 88fL Mean Corpuscular Hemoglobin 28pg Mean Corpuscular Hemoglobin Concent 32g/dL Red Cell Distribution Width 14.4% Platelet Count 351x10^3/uL Neutrophils (%) (Auto) 62% Lymphocytes (%) (Auto) 29% Monocytes (%) (Auto) 8% Eosinophils (%) (Auto) 1% Basophils (%) (Auto) 0% Neutrophils # (Auto) 9.1x10^3uL Lymphocytes # (Auto) 4.3x10^3/uL Monocytes # (Auto) 1.1x10^3/uL Eosinophils # (Auto) 0.1x10^3/uL Basophils # (Auto) 0.0x10^3/uL Sodium Level 132mmol/L Potassium Level 4.3mmol/L Chloride Level 98mmol/L Carbon Dioxide Level 30mmol/L Anion Gap 4 Blood Urea Nitrogen 12mg/dL Creatinine 0.7mg/dL Estimated GFR (Cockcroft-Gault) 155.3 Glucose Level 111mg/dL Calcium Level 7.9mg/dL Magnesium Level 1.8mg/dL PE: GEN: NAD LUNGS: clear anteriorly HEART: RRR ABD: BS+, epigastric tenderness to LLQ NEURO/PSYCH: A & O 3 A/P: Ulcerative colitis -flare w/ bloody diarrhea and abd pain, onset 04/2016 - symptoms improving -CT 2 w/ thickening in majority of colon, interval CT 06/22 w/ improvement -h/o C Diff, neg here (on Flagyl) -on PO steroids and IV iron -on PPN, TPN still not started -- Improving. Will try clear liquids. ALEXIS RIGGS Jun 25, 2016 11:14
[2016-06-25] MEDS: AA 3%/ELECTROLYTE-TPN SOLN/GLY 1,000 ML IV SCH (11:30)
[2016-06-25] MEDS: FENTANYL PF 100 MCG/2 ML VIAL. IV PRN ×5 (11:31→23:16)
[2016-06-25] MEDS: TPN PER PHARMACY MC PRN (13:27)
[2016-06-25 14:58] VITALS: BP 113/72
[2016-06-25 19:00] VITALS: BP 110/64
[2016-06-25] MEDS: DIPHENHYDRAMINE HCL 25 MG CAPSULE PO PRN (19:50)
[2016-06-25] MEDS ORDERED: TOTAL PARENTERAL NUTRITION 1,424.9987 ML, AMINO ACIDS 10 % 60 GM, DEXTROSE 70 % IN WATE... IV SCH ×10 (22:00)
[2016-06-25 23:42] VITALS: BP 102/66
[2016-06-26 03:03] VITALS: BP 101/65
[2016-06-26] MEDS: FENTANYL PF 100 MCG/2 ML VIAL. IV PRN ×5 (03:57→22:14)
[2016-06-26 05:12] LABS: BASO % 0 % (0-3); EOS % 1 % (0-3); HEMATOCRIT 25.2 % (39.0-53.0); HEMOGLOBIN 8.2 g/dL (13.0-17.5); LYMPH # 4.4 x10^3/uL (1.0-4.8); LYMPH % 36 % (24-48); MEAN CORPUSCULAR HEMOGLOBIN 29 pg (25-35); MEAN CORPUSCULAR HGB CONC 32 g/dL (31-37); MEAN CORPUSCULAR VOLUME 88 fL (79-100); MONO % 7 % (0-9); NEUT % 56 % (31-73); PLATELET COUNT 328 x10^3/uL (140-400); RED BLOOD COUNT 2.86 x10^6/uL (4.30-5.70); RED CELL DISTRIBUTION WIDTH 14.7 % (11.5-14.5); WHITE BLOOD COUNT 12.1 x10^3/uL (4.0-11.0)
[2016-06-26] MEDS: METRONIDAZOLE 500mg PREMIX 100 ML IV SCH ×3 (06:21→21:03)
[2016-06-26] MEDS: MORPHINE IR 15 MG TABLET PO PRN ×3 (06:21→21:01)
[2016-06-26 07:00] VITALS: BP 115/71
[2016-06-26] MEDS: INSULIN ASPART 300 UNITS/3 ML INSULN.PEN SQ SCH ×3 (08:00→17:12)
[2016-06-26] MEDS: PREDNISONE 20 MG TABLET PO SCH ×2 (09:03→20:25)
[2016-06-26 09:44] LABS: CALCIUM 7.7 mg/dL (8.5-10.1); CREATININE 0.6 mg/dL (0.7-1.3); GFR 185.5; MAGNESIUM 1.7 mg/dL (1.8-2.4); PHOSPHORUS 2.5 mg/dL (2.6-4.7); POTASSIUM 3.8 mmol/L (3.5-5.1)
[2016-06-26 11:17] VITALS: BP 108/68
--- NOTE | 2016-06-26 11:23 | PDOC ---
Subjective: Subjective: 3 liquid nonbloody BMs yesterday Objective: Vital Signs: Vital Signs Date Time Temp Pulse Resp B/P Pulse Ox O2 Delivery O2 Flow Rate FiO2 06/26/16 09:40 Room Air 06/26/16 07:21 20 06/26/16 07:00 99.1 93 115/71 99 99.1 Labs: Laboratory Tests Test 06/25/16 16:21 06/25/16 20:47 06/26/16 04:45 06/26/16 07:42 Glucose (Fingerstick) 104mg/dL (70-99) 103mg/dL (70-99) 130mg/dL (70-99) White Blood Count 12.1x10^3/uL (4.0-11.0) Red Blood Count 2.86x10^6/uL (4.30-5.70) Hemoglobin 8.2g/dL (13.0-17.5) Hematocrit 25.2% (39.0-53.0) Mean Corpuscular Volume 88fL (79-100) Mean Corpuscular Hemoglobin 29pg (25-35) Mean Corpuscular Hemoglobin Concent 32g/dL (31-37) Red Cell Distribution Width 14.7% (11.5-14.5) Platelet Count 328x10^3/uL (140-400) Neutrophils (%) (Auto) 56% (31-73) Lymphocytes (%) (Auto) 36% (24-48) Monocytes (%) (Auto) 7% (0-9) Eosinophils (%) (Auto) 1% (0-3) Basophils (%) (Auto) 0% (0-3) Neutrophils # (Auto) 6.9x10^3uL (1.8-7.7) Lymphocytes # (Auto) 4.4x10^3/uL (1.0-4.8) Monocytes # (Auto) 0.8x10^3/uL (0.0-1.1) Eosinophils # (Auto) 0.1x10^3/uL (0.0-0.7) Basophils # (Auto) 0.0x10^3/uL (0.0-0.2) Test 06/26/16 09:00 06/26/16 11:00 Sodium Level 134mmol/L (136-145) Potassium Level 3.8mmol/L (3.5-5.1) Chloride Level 99mmol/L (98-107) Carbon Dioxide Level 31mmol/L (21-32) Anion Gap 4 (6-14) Blood Urea Nitrogen 7mg/dL (8-26) Creatinine 0.6mg/dL (0.7-1.3) Estimated GFR (Cockcroft-Gault) 185.5 Glucose Level 81mg/dL (70-99) Calcium Level 7.7mg/dL (8.5-10.1) Phosphorus Level 2.5mg/dL (2.6-4.7) Magnesium Level 1.7mg/dL (1.8-2.4) Triglycerides Level 74mg/dL (0-150) Glucose (Fingerstick) 120mg/dL (70-99) Physical Exam: Physical Exam: PE: GEN: NAD LUNGS: clear anteriorly HEART: RRR ABD: BS+, epigastric tenderness to LLQ NEURO/PSYCH: A & O 3 Assessment & Plan: Assessment : A/P: Ulcerative colitis -flare w/ bloody diarrhea and abd pain, onset 04/2016 - symptoms improving -CT 06/17 w/ thickening in majority of colon, interval CT 06/22 w/ improvement -h/o C Diff, neg here (on Flagyl) -on PO steroids and IV iron -on PPN, TPN still not started clear liquids. Plan: Bloody diarrhea slowly decreasing. Continue with steroids. Trial of PO. O/P biologic therapy may be needed Problems: TARSHA OHARA MD Jun 26, 2016 11:23
[2016-06-26] MEDS ORDERED: SODIUM PHOSPHATE 15 MMOL in IV DEXTROSE 5% 250 ML IV ONE (11:30)
[2016-06-26] MEDS: TPN PER PHARMACY MC PRN (12:15)
--- NOTE | 2016-06-26 12:33 | PDOC ---
PROGRESS NOTES Chief Complaint Chief Complaint 1. Ulcerative colitis flare, manifested as bloody stools 2. Malnutrition: mod-severe. 3. Anemia: 2/2 acute blood loss as well as chronic inflammation. 4. DM: 5. Hx DVT: 6. Hx C.diff: History of Present Illness History of Present Illness Still some bloody stools but coming down slow But better abd exam and overall today hemodynamically stable despite loss of blood in stool on PRed 20 BID by gI Interval CT scan shows improvement in inflammation TPN now running Tolerated liquid diet fine So weak bec has been laying in bed so long since admission Showered today, so weak ESR 90s PLAn: Encourage ambulation dw RN and guards Advance to GI soft Cont tPN Not ready for dc, still UC in flare Vitals Vitals Vital Signs Date Time Temp Pulse Resp B/P Pulse Ox O2 Delivery O2 Flow Rate FiO2 06/26/16 11:17 98.5 101 18 108/68 99 Room Air 98.5 Physical Exam General: Alert, Oriented X3, No acute distress Heart: Regular rate Lungs: Clear Abdomen: Normal bowel sounds, Soft Extremities: No edema Skin: No rashes Labs LABS Laboratory Tests Test 06/25/16 16:21 06/25/16 20:47 06/26/16 04:45 06/26/16 07:42 Glucose (Fingerstick) 104mg/dL (70-99) 103mg/dL (70-99) 130mg/dL (70-99) White Blood Count 12.1x10^3/uL (4.0-11.0) Red Blood Count 2.86x10^6/uL (4.30-5.70) Hemoglobin 8.2g/dL (13.0-17.5) Hematocrit 25.2% (39.0-53.0) Mean Corpuscular Volume 88fL (79-100) Mean Corpuscular Hemoglobin 29pg (25-35) Mean Corpuscular Hemoglobin Concent 32g/dL (31-37) Red Cell Distribution Width 14.7% (11.5-14.5) Platelet Count 328x10^3/uL (140-400) Neutrophils (%) (Auto) 56% (31-73) Lymphocytes (%) (Auto) 36% (24-48) Monocytes (%) (Auto) 7% (0-9) Eosinophils (%) (Auto) 1% (0-3) Basophils (%) (Auto) 0% (0-3) Neutrophils # (Auto) 6.9x10^3uL (1.8-7.7) Lymphocytes # (Auto) 4.4x10^3/uL (1.0-4.8) Monocytes # (Auto) 0.8x10^3/uL (0.0-1.1) Eosinophils # (Auto) 0.1x10^3/uL (0.0-0.7) Basophils # (Auto) 0.0x10^3/uL (0.0-0.2) Test 06/26/16 09:00 06/26/16 11:00 Sodium Level 134mmol/L (136-145) Potassium Level 3.8mmol/L (3.5-5.1) Chloride Level 99mmol/L (98-107) Carbon Dioxide Level 31mmol/L (21-32) Anion Gap 4 (6-14) Blood Urea Nitrogen 7mg/dL (8-26) Creatinine 0.6mg/dL (0.7-1.3) Estimated GFR (Cockcroft-Gault) 185.5 Glucose Level 81mg/dL (70-99) Calcium Level 7.7mg/dL (8.5-10.1) Phosphorus Level 2.5mg/dL (2.6-4.7) Magnesium Level 1.7mg/dL (1.8-2.4) Triglycerides Level 74mg/dL (0-150) Glucose (Fingerstick) 120mg/dL (70-99) Review of Systems Review of Systems bloody diarrhea, abd pain, weak Assessment and Plan Assessmemt and Plan Problems Medical Problems: (1) Colitis Status: Acute Problems: Comment Review of Relevant I have reviewed the following items mariella (where applicable) has been applied. Labs Laboratory Tests Test 06/24/16 16:59 06/24/16 20:42 06/25/16 06:15 06/25/16 07:18 Glucose (Fingerstick) 114mg/dL (70-99) 108mg/dL (70-99) 102mg/dL (70-99) White Blood Count 14.7x10^3/uL (4.0-11.0) Red Blood Count 3.22x10^6/uL (4.30-5.70) Hemoglobin 9.1g/dL (13.0-17.5) Hematocrit 28.3% (39.0-53.0) Mean Corpuscular Volume 88fL (79-100) Mean Corpuscular Hemoglobin 28pg (25-35) Mean Corpuscular Hemoglobin Concent 32g/dL (31-37) Red Cell Distribution Width 14.4% (11.5-14.5) Platelet Count 351x10^3/uL (140-400) Neutrophils (%) (Auto) 62% (31-73) Lymphocytes (%) (Auto) 29% (24-48) Monocytes (%) (Auto) 8% (0-9) Eosinophils (%) (Auto) 1% (0-3) Basophils (%) (Auto) 0% (0-3) Neutrophils # (Auto) 9.1x10^3uL (1.8-7.7) Lymphocytes # (Auto) 4.3x10^3/uL (1.0-4.8) Monocytes # (Auto) 1.1x10^3/uL (0.0-1.1) Eosinophils # (Auto) 0.1x10^3/uL (0.0-0.7) Basophils # (Auto) 0.0x10^3/uL (0.0-0.2) Erythrocyte Sedimentation Rate 95 (0-15) Sodium Level 132mmol/L (136-145) Potassium Level 4.3mmol/L (3.5-5.1) Chloride Level 98mmol/L (98-107) Carbon Dioxide Level 30mmol/L (21-32) Anion Gap 4 (6-14) Blood Urea Nitrogen 12mg/dL (8-26) Creatinine 0.7mg/dL (0.7-1.3) Estimated GFR (Cockcroft-Gault) 155.3 Glucose Level 111mg/dL (70-99) Calcium Level 7.9mg/dL (8.5-10.1) Phosphorus Level 3.4mg/dL (2.6-4.7) Magnesium Level 1.8mg/dL (1.8-2.4) Test 06/25/16 11:08 06/25/16 16:21 06/25/16 20:47 06/26/16 04:45 Glucose (Fingerstick) 113mg/dL (70-99) 104mg/dL (70-99) 103mg/dL (70-99) White Blood Count 12.1x10^3/uL (4.0-11.0) Red Blood Count 2.86x10^6/uL (4.30-5.70) Hemoglobin 8.2g/dL (13.0-17.5) Hematocrit 25.2% (39.0-53.0) Mean Corpuscular Volume 88fL (79-100) Mean Corpuscular Hemoglobin 29pg (25-35) Mean Corpuscular Hemoglobin Concent 32g/dL (31-37) Red Cell Distribution Width 14.7% (11.5-14.5) Platelet Count 328x10^3/uL (140-400) Neutrophils (%) (Auto) 56% (31-73) Lymphocytes (%) (Auto) 36% (24-48) Monocytes (%) (Auto) 7% (0-9) Eosinophils (%) (Auto) 1% (0-3) Basophils (%) (Auto) 0% (0-3) Neutrophils # (Auto) 6.9x10^3uL (1.8-7.7) Lymphocytes # (Auto) 4.4x10^3/uL (1.0-4.8) Monocytes # (Auto) 0.8x10^3/uL (0.0-1.1) Eosinophils # (Auto) 0.1x10^3/uL (0.0-0.7) Basophils # (Auto) 0.0x10^3/uL (0.0-0.2) Test 06/26/16 07:42 06/26/16 09:00 06/26/16 11:00 Glucose (Fingerstick) 130mg/dL (70-99) 120mg/dL (70-99) Sodium Level 134mmol/L (136-145) Potassium Level 3.8mmol/L (3.5-5.1) Chloride Level 99mmol/L (98-107) Carbon Dioxide Level 31mmol/L (21-32) Anion Gap 4 (6-14) Blood Urea Nitrogen 7mg/dL (8-26) Creatinine 0.6mg/dL (0.7-1.3) Estimated GFR (Cockcroft-Gault) 185.5 Glucose Level 81mg/dL (70-99) Calcium Level 7.7mg/dL (8.5-10.1) Phosphorus Level 2.5mg/dL (2.6-4.7) Magnesium Level 1.7mg/dL (1.8-2.4) Triglycerides Level 74mg/dL (0-150) Laboratory Tests Test 06/25/16 16:21 06/25/16 20:47 06/26/16 04:45 06/26/16 07:42 Glucose (Fingerstick) 104mg/dL (70-99) 103mg/dL (70-99) 130mg/dL (70-99) White Blood Count 12.1x10^3/uL (4.0-11.0) Red Blood Count 2.86x10^6/uL (4.30-5.70) Hemoglobin 8.2g/dL (13.0-17.5) Hematocrit 25.2% (39.0-53.0) Mean Corpuscular Volume 88fL (79-100) Mean Corpuscular Hemoglobin 29pg (25-35) Mean Corpuscular Hemoglobin Concent 32g/dL (31-37) Red Cell Distribution Width 14.7% (11.5-14.5) Platelet Count 328x10^3/uL (140-400) Neutrophils (%) (Auto) 56% (31-73) Lymphocytes (%) (Auto) 36% (24-48) Monocytes (%) (Auto) 7% (0-9) Eosinophils (%) (Auto) 1% (0-3) Basophils (%) (Auto) 0% (0-3) Neutrophils # (Auto) 6.9x10^3uL (1.8-7.7) Lymphocytes # (Auto) 4.4x10^3/uL (1.0-4.8) Monocytes # (Auto) 0.8x10^3/uL (0.0-1.1) Eosinophils # (Auto) 0.1x10^3/uL (0.0-0.7) Basophils # (Auto) 0.0x10^3/uL (0.0-0.2) Test 06/26/16 09:00 06/26/16 11:00 Sodium Level 134mmol/L (136-145) Potassium Level 3.8mmol/L (3.5-5.1) Chloride Level 99mmol/L (98-107) Carbon Dioxide Level 31mmol/L (21-32) Anion Gap 4 (6-14) Blood Urea Nitrogen 7mg/dL (8-26) Creatinine 0.6mg/dL (0.7-1.3) Estimated GFR (Cockcroft-Gault) 185.5 Glucose Level 81mg/dL (70-99) Calcium Level 7.7mg/dL (8.5-10.1) Phosphorus Level 2.5mg/dL (2.6-4.7) Magnesium Level 1.7mg/dL (1.8-2.4) Triglycerides Level 74mg/dL (0-150) Glucose (Fingerstick) 120mg/dL (70-99) Microbiology 06/18/16 Stool Culture - Final, Resulted 06/18/16 Stool Culture Result 1 (DEANA) - Final, Resulted 06/18/16 Campylobacter Antigen Assay - Preliminary, Resulted 06/18/16 Campylobactor Result 1 - Preliminary, Resulted 06/18/16 Shiga Toxin Test - Final, Resulted Medications Current Medications Fentanyl Citrate 25 mcg 25 mcg PRN Q15MIN PRN IV PAIN GREATER THAN 3/10 Last administered on 06/17/16 16:59; Start 06/17/16 at 15:45; Stop 06/18/16 at 15:44; Status DC Sodium Chloride (Iv Sodium Chloride 0.9% 1000ml Bag) 1,000 ml @ 1,000 mls/hr Q1H IV Last administered on 06/17/16 16:51; Start 06/17/16 at 15:33; Stop at 16:46; Status DC Ondansetron HCl (Zofran) 4 mg 1X ONCE IV Last administered on 06/17/16 16:57; Start 06/17/16 at 15:45; Stop 06/17/16 at 16:46; Status DC Iohexol (Omnipaque 300 Mg/ml) 75 ml 1X ONCE IV Last administered on 06/17/16 17:45; Start 06/17/16 at 17:30; Stop 06/17/16 at 17:31; Status DC Info 1 each 1 each PRN DAILY PRN MC SEE COMMENTS; Start 06/17/16 at 17:45; Stop 06/19/16 at 17:44; Status DC Ceftriaxone Sodium 50 ml @ 100 mls/hr 1X ONCE IV Last administered on 19:50; Start 06/17/16 at 18:45; Stop 06/17/16 at 19:14; Status DC Ceftriaxone Sodium 1 gm/ Sodium Chloride 50 ml @ 100 mls/hr Q24H IV Last administered on 06/22/16 18:33; Start 06/18/16 at 18:00; Stop 06/23/16 at 13:20 ; Status DC Metronidazole 100 ml @ 100 mls/hr Q8HRS IV Last administered on 06/26/16 06: 21; Start 06/18/16 at 06:00 Metronidazole (FLAGYL 500Mmg PREMIX) 100 ml @ 100 mls/hr 1X ONCE IV Last administered on 06/17/16 21:04; Start 06/17/16 at 18:45; Stop 06/17/16 at 19:44; Status DC Ondansetron HCl (Zofran) 4 mg PRN Q8HRS PRN IV NAUSEA/VOMITING Last administered on 06/18/16 08:38; Start 06/17/16 at 18:45; Stop 06/18/16 at 18:44 ; Status DC Morphine Sulfate 4 mg PRN Q2HR PRN IV PAIN Last administered on 06/18/16 10:38 ; Start 06/17/16 at 18:45; Stop 06/18/16 at 18:44; Status DC Acetaminophen (Tylenol) 650 mg PRN Q4HRS PRN PO FEVER Last administered on 06/18 10:52; Start 06/17/16 at 18:45; Stop 06/18/16 at 18:44; Status DC Methylprednisolone Sodium Succinate 40 mg 40 mg Q12HR IV Last administered on 09:45; Start 06/18/16 at 10:00; Stop 06/21/16 at 14:26; Status DC Dextrose/Sodium Chloride (Iv D5% - 1/2 NS) 1,000 ml @ 100 mls/hr Q10H IV Last administered on 06/21/16 14:30; Start 06/18/16 at 16:00; Stop 06/21/16 at 22:36 ; Status DC Morphine Sulfate (Morphine Ir) 15 mg PRN Q4HRS PRN PO PAIN Last administered on 06/26/16 06:21; Start 06/18/16 at 15:30 Phenyleph/Shark Oil/Min Oil/Petrol (Preparation H) 1 christine PRN Q4HRS PRN RC RECTAL PAIN; Start 06/18/16 at 15:30 Prednisone (Prednisone) 20 mg BID PO Last administered on 06/26/16 09:03; Start 06/21/16 at 21:00 Insulin Aspart (Novolog) 0-7 UNITS TIDWMEALS SQ ; Start 06/22/16 at 08:00 Dextrose 12.5 gm 12.5 gm PRN Q15MIN PRN IV SEE COMMENTS; Start 06/21/16 at 19: 15 Amino Acids/ Glycerin/ Electrolytes (Procalamine) 1,000 ml @ 80 mls/hr [id number] IV Last administered on 06/25/16 11:30; Start 06/21/16 at 20:00; Stop at 21:59; Status DC Diphenhydramine HCl 25 mg 25 mg PRN Q6HRS PRN PO ITCHING Last administered on 19:50; Start 06/21/16 at 22:45 Iron Sucrose/ Sodium Chloride (Venofer/Iv Sodium Chloride 0.9% 250ml) 265 ml @ 90 mls/hr Q12HR IV Last administered on 06/23/16 09:53; Start 06/22/16 at 10: 00; Stop 06/23/16 at 20:00; Status DC Iohexol (Omnipaque 240 Mg/ml) 30 ml 1X ONCE PO Last administered on 06/22/16 13:25; Start 06/22/16 at 12:00; Stop 06/22/16 at 12:03; Status DC Iohexol (Omnipaque 300 Mg/ml) 75 ml 1X ONCE IV Last administered on 06/22/16 13:25; Start 06/22/16 at 12:00; Stop 06/22/16 at 12:03; Status DC Info 1 each PRN DAILY PRN MC SEE COMMENTS Last administered on 06/26/16 12:15 ; Start 06/25/16 at 05:00 Fentanyl Citrate 50 mcg 50 mcg PRN Q2HR PRN IV PAIN Last administered on 09:04; Start 06/25/16 at 09:15 Sodium Chloride 90 meq/Potassium Chloride 50 meq/ Potassium Phosphate 13.6 mmol/ Magnesium Sulfate 10 meq/ Calcium Gluconate 10 meq/ Multivitamins/ Minerals 10 ml/ Chromium/Copper/ Manganese/Seleni/ Zn 1 ml/Total Parenteral Nutrition/Amino Acids/Dextrose/ Fat Emulsion Intravenous 1,512 ml @ 63 mls/hr TPN CONT IV Last administered on 06/25/16 21:56; Start 06/25/16 at 22:00; Stop 06/26/16 at 21:59 Sodium Phosphate 15 mmol/Dextrose 255 ml @ 63.75 mls/ hr 1X ONCE IV Last administered on 06/26/16 12:15; Start 06/26/16 at 11:30; Stop 06/26/16 at 15:29 Sodium Chloride/ Potassium Chloride/ Potassium Phosphate/ Magnesium Sulfate/ Calcium Gluconate/ Multivitamins/ Minerals/Chromium/ Copper/Manganese/ Seleni/Zn /Total Parenteral Nutrition/Amino Acids/Dextrose/ Fat Emulsion Intravenous ( Sodium Chloride/ Potassium Phospha... 1,512 ml @ 63 mls/hr TPN CONT IV ; Start 06/26/16 at 22:00; Stop 06/27/16 at 21:59 Active Scripts Active Reported One Daily (Multivitamin) 1 Each Tablet 1 Each PO DAILY Prednisone 20 Mg Tablet 1 Tab PO HS [boost oral liquid] Nystatin 100,000 Unit/1 Ml Oral.susp 5 Ml PO BID Acetaminophen 500 Mg Tablet 1,000 Mg PO PRN BID PRN Tigan (Trimethobenzamide Hcl) 100 Mg/1 Ml Vial 100 Mg IM PRN BID Prednisone 20 Mg Tablet 40 Mg PO DAILY Caplet (Pnv95/Ferrous Fumarate/FA) 1 Each Tablet 1 Each PO DAILY Loperamide (Loperamide Hcl) 2 Mg Tablet 2 Tab PO PRN DAILY PRN Hydroxyzine Hcl 25 Mg Tablet 1 Tab PO BID Vitals/I & O Vital Sign - Last 24 Hours 06/25/16 06/25/16 06/25/16 06/25/16 13:33 14:58 16:12 16:42 Temp 98.1 98.1 Pulse 76 Resp 18 B/P 113/72 Pulse Ox 100 100 100 O2 Delivery Room Air Room Air Room Air 06/25/16 06/25/16 06/25/16 06/25/16 18:36 19:00 19:55 20:15 Temp 99.7 99.7 Pulse 79 Resp 20 20 B/P 110/64 Pulse Ox 98 O2 Delivery Room Air Room Air Room Air Room Air 06/25/16 06/25/16 06/26/16 06/26/16 23:16 23:42 03:03 03:57 Temp 98.8 98.1 98.8 98.1 Pulse 77 74 Resp 18 18 18 20 B/P 102/66 101/65 Pulse Ox 96 93 O2 Delivery Room Air Room Air Room Air Room Air 06/26/16 06/26/16 06/26/16 06/26/16 04:27 06:21 07:00 07:21 Temp 99.1 99.1 Pulse 93 Resp 20 20 18 20 B/P 115/71 Pulse Ox 99 O2 Delivery Room Air Room Air Room Air 06/26/16 06/26/16 06/26/16 06/26/16 08:15 09:04 09:40 11:17 Temp 98.5 98.5 Pulse 101 Resp 18 B/P 108/68 Pulse Ox 99 O2 Delivery Room Air Room Air Room Air Room Air Intake and Output 06/25/16 06/25/16 06/26/16 15:00 23:00 07:00 Intake Total 120 ml 1120 ml Output Total 1150 ml 600 ml Balance 120 ml -30 ml -600 ml JOYCE GARCIA MD Jun 26, 2016 12:33
[2016-06-26 15:25] VITALS: BP 93/61
[2016-06-26 19:00] VITALS: BP 104/70
[2016-06-26] MEDS: DIPHENHYDRAMINE HCL 25 MG CAPSULE PO PRN (21:01)
[2016-06-26] MEDS ORDERED: [UNRECOGNIZED DRUG - OTHER] IV SCH ×10 (22:00)
[2016-06-26] MEDS ORDERED: DEXTROSE 70% IV SCH ×10 (22:00)
[2016-06-26] MEDS ORDERED: AMINO ACIDS IV SCH ×10 (22:00)
[2016-06-26] MEDS ORDERED: TOTAL PARENTERAL NUTRITION IV SCH ×10 (22:00)
[2016-06-26 22:37] VITALS: BP 102/68
[2016-06-27] MEDS: MORPHINE IR 15 MG TABLET PO PRN ×3 (01:48→20:49)
[2016-06-27] MEDS: FENTANYL PF 100 MCG/2 ML VIAL. IV PRN ×6 (01:55→20:10)
[2016-06-27 04:43] LABS: CALCIUM 7.5 mg/dL (8.5-10.1); CREATININE 0.6 mg/dL (0.7-1.3); GFR 185.5; MAGNESIUM 1.8 mg/dL (1.8-2.4); PHOSPHORUS 1.8 mg/dL (2.6-4.7); POTASSIUM 4.5 mmol/L (3.5-5.1)
[2016-06-27] MEDS: METRONIDAZOLE 500mg PREMIX 100 ML IV SCH ×3 (05:49→21:43)
[2016-06-27 07:00] VITALS: BP 102/62
[2016-06-27] MEDS: INSULIN ASPART 300 UNITS/3 ML INSULN.PEN SQ SCH ×3 (07:58→17:08)
[2016-06-27] MEDS: PREDNISONE 20 MG TABLET PO SCH ×2 (07:58→20:49)
[2016-06-27 11:00] VITALS: BP 103/60
[2016-06-27] MEDS ORDERED: SODIUM PHOSPHATE 15 MMOL in IV DEXTROSE 5% 250 ML IV ONE (11:45)
[2016-06-27] MEDS: TPN PER PHARMACY MC PRN (13:13)
--- NOTE | 2016-06-27 14:29 | PDOC ---
PROGRESS NOTES Chief Complaint Chief Complaint 1. Ulcerative colitis flare, manifested as bloody stools 2. Malnutrition: mod-severe. 3. Anemia: 2/2 acute blood loss as well as chronic inflammation. 4. DM: 5. Hx DVT: 6. Hx C.diff: History of Present Illness History of Present Illness Still some bloody stools but coming down slow Cont to do better, looks good actually today MOre strength now since started on some pO diet CUrrently tolerating GI soft TPN still running ESR 90s (Tuesday) Ambulating more with PT PLAn: COnt GI soft diet and TPN for now PT again today If continues to do well, dc back to [facility] on PO pred 20 BID (for UC flare) - if cleared by gI MAke sure not passing too much bloody BM prior to dc Vitals Vitals Vital Signs Date Time Temp Pulse Resp B/P Pulse Ox O2 Delivery O2 Flow Rate FiO2 06/27/16 12:30 Room Air 06/27/16 11:00 97.7 90 18 103/60 99 97.7 Physical Exam General: Alert, Oriented X3, No acute distress Heart: Regular rate Lungs: Clear Abdomen: Normal bowel sounds, Soft Extremities: No edema Skin: No rashes Labs LABS Laboratory Tests Test 06/26/16 16:39 06/26/16 20:31 06/27/16 04:20 06/27/16 07:07 Glucose (Fingerstick) 186mg/dL (70-99) 129mg/dL (70-99) 146mg/dL (70-99) Sodium Level 133mmol/L (136-145) Potassium Level 4.5mmol/L (3.5-5.1) Chloride Level 100mmol/L (98-107) Carbon Dioxide Level 29mmol/L (21-32) Anion Gap 4 (6-14) Blood Urea Nitrogen 8mg/dL (8-26) Creatinine 0.6mg/dL (0.7-1.3) Estimated GFR (Cockcroft-Gault) 185.5 Glucose Level 179mg/dL (70-99) Calcium Level 7.5mg/dL (8.5-10.1) Phosphorus Level 1.8mg/dL (2.6-4.7) Magnesium Level 1.8mg/dL (1.8-2.4) Test 06/27/16 11:11 Glucose (Fingerstick) 183mg/dL (70-99) Review of Systems Review of Systems bloody stools, some abd pain, no emesis Assessment and Plan Assessmemt and Plan Problems Medical Problems: (1) Colitis Status: Acute Problems: Comment Review of Relevant I have reviewed the following items mariella (where applicable) has been applied. Labs Laboratory Tests Test 06/25/16 16:21 06/25/16 20:47 06/26/16 04:45 06/26/16 07:42 Glucose (Fingerstick) 104mg/dL (70-99) 103mg/dL (70-99) 130mg/dL (70-99) White Blood Count 12.1x10^3/uL (4.0-11.0) Red Blood Count 2.86x10^6/uL (4.30-5.70) Hemoglobin 8.2g/dL (13.0-17.5) Hematocrit 25.2% (39.0-53.0) Mean Corpuscular Volume 88fL (79-100) Mean Corpuscular Hemoglobin 29pg (25-35) Mean Corpuscular Hemoglobin Concent 32g/dL (31-37) Red Cell Distribution Width 14.7% (11.5-14.5) Platelet Count 328x10^3/uL (140-400) Neutrophils (%) (Auto) 56% (31-73) Lymphocytes (%) (Auto) 36% (24-48) Monocytes (%) (Auto) 7% (0-9) Eosinophils (%) (Auto) 1% (0-3) Basophils (%) (Auto) 0% (0-3) Neutrophils # (Auto) 6.9x10^3uL (1.8-7.7) Lymphocytes # (Auto) 4.4x10^3/uL (1.0-4.8) Monocytes # (Auto) 0.8x10^3/uL (0.0-1.1) Eosinophils # (Auto) 0.1x10^3/uL (0.0-0.7) Basophils # (Auto) 0.0x10^3/uL (0.0-0.2) Test 06/26/16 09:00 06/26/16 11:00 06/26/16 16:39 06/26/16 20:31 Sodium Level 134mmol/L (136-145) Potassium Level 3.8mmol/L (3.5-5.1) Chloride Level 99mmol/L (98-107) Carbon Dioxide Level 31mmol/L (21-32) Anion Gap 4 (6-14) Blood Urea Nitrogen 7mg/dL (8-26) Creatinine 0.6mg/dL (0.7-1.3) Estimated GFR (Cockcroft-Gault) 185.5 Glucose Level 81mg/dL (70-99) Calcium Level 7.7mg/dL (8.5-10.1) Phosphorus Level 2.5mg/dL (2.6-4.7) Magnesium Level 1.7mg/dL (1.8-2.4) Triglycerides Level 74mg/dL (0-150) Glucose (Fingerstick) 120mg/dL (70-99) 186mg/dL (70-99) 129mg/dL (70-99) Test 06/27/16 04:20 06/27/16 07:07 06/27/16 11:11 Sodium Level 133mmol/L (136-145) Potassium Level 4.5mmol/L (3.5-5.1) Chloride Level 100mmol/L (98-107) Carbon Dioxide Level 29mmol/L (21-32) Anion Gap 4 (6-14) Blood Urea Nitrogen 8mg/dL (8-26) Creatinine 0.6mg/dL (0.7-1.3) Estimated GFR (Cockcroft-Gault) 185.5 Glucose Level 179mg/dL (70-99) Calcium Level 7.5mg/dL (8.5-10.1) Phosphorus Level 1.8mg/dL (2.6-4.7) Magnesium Level 1.8mg/dL (1.8-2.4) Glucose (Fingerstick) 146mg/dL (70-99) 183mg/dL (70-99) Laboratory Tests Test 06/26/16 16:39 06/26/16 20:31 06/27/16 04:20 06/27/16 07:07 Glucose (Fingerstick) 186mg/dL (70-99) 129mg/dL (70-99) 146mg/dL (70-99) Sodium Level 133mmol/L (136-145) Potassium Level 4.5mmol/L (3.5-5.1) Chloride Level 100mmol/L (98-107) Carbon Dioxide Level 29mmol/L (21-32) Anion Gap 4 (6-14) Blood Urea Nitrogen 8mg/dL (8-26) Creatinine 0.6mg/dL (0.7-1.3) Estimated GFR (Cockcroft-Gault) 185.5 Glucose Level 179mg/dL (70-99) Calcium Level 7.5mg/dL (8.5-10.1) Phosphorus Level 1.8mg/dL (2.6-4.7) Magnesium Level 1.8mg/dL (1.8-2.4) Test 06/27/16 11:11 Glucose (Fingerstick) 183mg/dL (70-99) Microbiology 06/18/16 Stool Culture - Final, Complete 06/18/16 Stool Culture Result 1 (DEANA) - Final, Complete 06/18/16 Campylobacter Antigen Assay - Final, Complete 06/18/16 Campylobactor Result 1 - Final, Complete 06/18/16 Shiga Toxin Test - Final, Complete Medications Current Medications Fentanyl Citrate 25 mcg 25 mcg PRN Q15MIN PRN IV PAIN GREATER THAN 3/10 Last administered on 06/17/16 16:59; Start 06/17/16 at 15:45; Stop 06/18/16 at 15:44; Status DC Sodium Chloride (Iv Sodium Chloride 0.9% 1000ml Bag) 1,000 ml @ 1,000 mls/hr Q1H IV Last administered on 06/17/16 16:51; Start 06/17/16 at 15:33; Stop at 16:46; Status DC Ondansetron HCl (Zofran) 4 mg 1X ONCE IV Last administered on 06/17/16 16:57; Start 06/17/16 at 15:45; Stop 06/17/16 at 16:46; Status DC Iohexol (Omnipaque 300 Mg/ml) 75 ml 1X ONCE IV Last administered on 06/17/16 17:45; Start 06/17/16 at 17:30; Stop 06/17/16 at 17:31; Status DC Info 1 each 1 each PRN DAILY PRN MC SEE COMMENTS; Start 06/17/16 at 17:45; Stop 06/19/16 at 17:44; Status DC Ceftriaxone Sodium 50 ml @ 100 mls/hr 1X ONCE IV Last administered on 19:50; Start 06/17/16 at 18:45; Stop 06/17/16 at 19:14; Status DC Ceftriaxone Sodium 1 gm/ Sodium Chloride 50 ml @ 100 mls/hr Q24H IV Last administered on 06/22/16 18:33; Start 06/18/16 at 18:00; Stop 06/23/16 at 13:20 ; Status DC Metronidazole 100 ml @ 100 mls/hr Q8HRS IV Last administered on 06/27/16 05: 49; Start 06/18/16 at 06:00 Metronidazole (FLAGYL 500Mmg PREMIX) 100 ml @ 100 mls/hr 1X ONCE IV Last administered on 06/17/16 21:04; Start 06/17/16 at 18:45; Stop 06/17/16 at 19:44; Status DC Ondansetron HCl (Zofran) 4 mg PRN Q8HRS PRN IV NAUSEA/VOMITING Last administered on 06/18/16 08:38; Start 06/17/16 at 18:45; Stop 06/18/16 at 18:44 ; Status DC Morphine Sulfate 4 mg PRN Q2HR PRN IV PAIN Last administered on 06/18/16 10:38 ; Start 06/17/16 at 18:45; Stop 06/18/16 at 18:44; Status DC Acetaminophen (Tylenol) 650 mg PRN Q4HRS PRN PO FEVER Last administered on 06/18 10:52; Start 06/17/16 at 18:45; Stop 06/18/16 at 18:44; Status DC Methylprednisolone Sodium Succinate 40 mg 40 mg Q12HR IV Last administered on 09:45; Start 06/18/16 at 10:00; Stop 06/21/16 at 14:26; Status DC Dextrose/Sodium Chloride (Iv D5% - 1/2 NS) 1,000 ml @ 100 mls/hr Q10H IV Last administered on 06/21/16 14:30; Start 06/18/16 at 16:00; Stop 06/21/16 at 22:36 ; Status DC Morphine Sulfate (Morphine Ir) 15 mg PRN Q4HRS PRN PO PAIN Last administered on 06/27/16 07:58; Start 06/18/16 at 15:30 Phenyleph/Shark Oil/Min Oil/Petrol (Preparation H) 1 christine PRN Q4HRS PRN RC RECTAL PAIN; Start 06/18/16 at 15:30 Prednisone (Prednisone) 20 mg BID PO Last administered on 06/27/16 07:58; Start 06/21/16 at 21:00 Insulin Aspart (Novolog) 0-7 UNITS TIDWMEALS SQ Last administered on 06/27/16 12:12; Start 06/22/16 at 08:00 Dextrose 12.5 gm 12.5 gm PRN Q15MIN PRN IV SEE COMMENTS; Start 06/21/16 at 19: 15 Amino Acids/ Glycerin/ Electrolytes (Procalamine) 1,000 ml @ 80 mls/hr [id number] IV Last administered on 06/25/16 11:30; Start 06/21/16 at 20:00; Stop at 21:59; Status DC Diphenhydramine HCl 25 mg 25 mg PRN Q6HRS PRN PO ITCHING Last administered on 21:01; Start 06/21/16 at 22:45 Iron Sucrose/ Sodium Chloride (Venofer/Iv Sodium Chloride 0.9% 250ml) 265 ml @ 90 mls/hr Q12HR IV Last administered on 06/23/16 09:53; Start 06/22/16 at 10: 00; Stop 06/23/16 at 20:00; Status DC Iohexol (Omnipaque 240 Mg/ml) 30 ml 1X ONCE PO Last administered on 06/22/16 13:25; Start 06/22/16 at 12:00; Stop 06/22/16 at 12:03; Status DC Iohexol (Omnipaque 300 Mg/ml) 75 ml 1X ONCE IV Last administered on 06/22/16 13:25; Start 06/22/16 at 12:00; Stop 06/22/16 at 12:03; Status DC Info 1 each PRN DAILY PRN MC SEE COMMENTS Last administered on 06/27/16 13:13 ; Start 06/25/16 at 05:00 Fentanyl Citrate 50 mcg 50 mcg PRN Q2HR PRN IV PAIN Last administered on 11:59; Start 06/25/16 at 09:15 Sodium Chloride 90 meq/Potassium Chloride 50 meq/ Potassium Phosphate 13.6 mmol/ Magnesium Sulfate 10 meq/ Calcium Gluconate 10 meq/ Multivitamins/ Minerals 10 ml/ Chromium/Copper/ Manganese/Seleni/ Zn 1 ml/Total Parenteral Nutrition/Amino Acids/Dextrose/ Fat Emulsion Intravenous 1,512 ml @ 63 mls/hr TPN CONT IV Last administered on 06/25/16 21:56; Start 06/25/16 at 22:00; Stop 06/26/16 at 21:59; Status DC Sodium Phosphate 15 mmol/Dextrose 255 ml @ 63.75 mls/ hr 1X ONCE IV Last administered on 06/26/16 12:15; Start 06/26/16 at 11:30; Stop 06/26/16 at 15:29 ; Status DC Sodium Chloride 90 meq/Potassium Chloride 60 meq/ Potassium Phosphate 15 mmol/ Magnesium Sulfate 12 meq/Calcium Gluconate 10 meq/ Multivitamins/ Minerals 10 ml / Chromium/Copper/ Manganese/Seleni/ Zn 1 ml/Total Parenteral Nutrition/Amino Acids/Dextrose/ Fat Emulsion Intravenous 1,512 ml @ 63 mls/hr TPN CONT IV Last administered on 06/26/16 21:04; Start 06/26/16 at 22:00; Stop 06/27/16 at 21:59 Sodium Phosphate 15 mmol/Dextrose 255 ml @ 63.75 mls/ hr 1X ONCE IV Last administered on 06/27/16 11:59; Start 06/27/16 at 11:45; Stop 06/27/16 at 15:44 Sodium Chloride/ Sodium Phosphate/ Potassium Chloride/ Potassium Phosphate/ Magnesium Sulfate/ Calcium Gluconate/ Multivitamins/ Minerals/Chromium/ Copper/ Manganese/ Seleni/Zn/Total Parenteral Nutrition/Amino Acids/Dextrose/ Fat Emulsion Intravenous (Sodium Chloride/ Potass... 1,512 ml @ 63 mls/hr TPN CONT IV ; Start 06/27/16 at 22:00; Stop 06/28/16 at 21:59 Active Scripts Active Reported One Daily (Multivitamin) 1 Each Tablet 1 Each PO DAILY Prednisone 20 Mg Tablet 1 Tab PO HS [boost oral liquid] Nystatin 100,000 Unit/1 Ml Oral.susp 5 Ml PO BID Acetaminophen 500 Mg Tablet 1,000 Mg PO PRN BID PRN Tigan (Trimethobenzamide Hcl) 100 Mg/1 Ml Vial 100 Mg IM PRN BID Prednisone 20 Mg Tablet 40 Mg PO DAILY Caplet (Pnv95/Ferrous Fumarate/FA) 1 Each Tablet 1 Each PO DAILY Loperamide (Loperamide Hcl) 2 Mg Tablet 2 Tab PO PRN DAILY PRN Hydroxyzine Hcl 25 Mg Tablet 1 Tab PO BID Vitals/I & O Vital Sign - Last 24 Hours 06/26/16 06/26/16 06/26/16 06/26/16 15:24 15:25 17:05 19:00 Temp 98.7 98.9 98.7 98.9 Pulse 94 91 Resp 18 18 B/P 93/61 104/70 Pulse Ox 99 100 O2 Delivery Room Air Room Air Room Air Room Air 06/26/16 06/26/16 06/26/16 06/27/16 21:01 22:14 22:37 01:55 Temp 98.8 98.8 Pulse 105 Resp 18 B/P 102/68 Pulse Ox 97 O2 Delivery Room Air Room Air Room Air Room Air 06/27/16 06/27/16 06/27/16 06/27/16 06:21 07:00 07:55 07:58 Temp 97.7 97.7 Pulse 89 Resp 18 B/P 102/62 Pulse Ox 99 O2 Delivery Room Air Room Air Room Air Room Air 06/27/16 06/27/16 06/27/16 06/27/16 09:00 11:00 11:59 12:30 Temp 97.7 97.7 Pulse 90 Resp 18 B/P 103/60 Pulse Ox 99 O2 Delivery Room Air Room Air Room Air Room Air Intake and Output 06/26/16 06/26/16 06/27/16 15:00 23:00 07:00 Intake Total 240 ml 480 ml 620 ml Output Total 301 ml 351 ml Balance -61 ml 480 ml 269 ml JOYCE GARCIA MD Jun 27, 2016 14:29
[2016-06-27 14:49] VITALS: BP 103/61
[2016-06-27 19:00] VITALS: BP 103/65
[2016-06-27] MEDS: DIPHENHYDRAMINE HCL 25 MG CAPSULE PO PRN (20:49)
[2016-06-27] MEDS ORDERED: TOTAL PARENTERAL NUTRITION IV SCH ×11 (22:00)
[2016-06-27] MEDS ORDERED: DEXTROSE 70% IV SCH ×11 (22:00)
[2016-06-27] MEDS ORDERED: AMINO ACIDS IV SCH ×11 (22:00)
[2016-06-27] MEDS ORDERED: [UNRECOGNIZED DRUG - OTHER] IV SCH ×11 (22:00)
[2016-06-27 22:48] VITALS: BP 99/69
[2016-06-28 03:00] VITALS: BP 94/73
[2016-06-28] MEDS: FENTANYL PF 100 MCG/2 ML VIAL. IV PRN ×3 (03:50→20:08)
[2016-06-28 03:51] LABS: BASO # 0.1 x10^3/uL (0.0-0.2); BASO % 1 % (0-3); EOS % 1 % (0-3); HEMATOCRIT 27.2 % (39.0-53.0); HEMOGLOBIN 8.7 g/dL (13.0-17.5); LYMPH # 3.4 x10^3/uL (1.0-4.8); LYMPH % 29 % (24-48); MEAN CORPUSCULAR HEMOGLOBIN 29 pg (25-35); MEAN CORPUSCULAR HGB CONC 32 g/dL (31-37); MEAN CORPUSCULAR VOLUME 90 fL (79-100); MONO % 8 % (0-9); NEUT % 62 % (31-73); PLATELET COUNT 288 x10^3/uL (140-400); RED BLOOD COUNT 3.03 x10^6/uL (4.30-5.70); RED CELL DISTRIBUTION WIDTH 15.8 % (11.5-14.5); WHITE BLOOD COUNT 11.9 x10^3/uL (4.0-11.0)
[2016-06-28 04:37] LABS: CALCIUM 7.5 mg/dL (8.5-10.1); CREATININE 0.6 mg/dL (0.7-1.3); GFR 185.5; MAGNESIUM 1.8 mg/dL (1.8-2.4); PHOSPHORUS 2.5 mg/dL (2.6-4.7); POTASSIUM 4.9 mmol/L (3.5-5.1)
[2016-06-28] MEDS: METRONIDAZOLE 500mg PREMIX 100 ML IV SCH ×3 (06:03→22:18)
[2016-06-28] MEDS: MORPHINE IR 15 MG TABLET PO PRN ×3 (06:24→22:27)
[2016-06-28 07:00] VITALS: BP 90/63
[2016-06-28] MEDS: INSULIN ASPART 300 UNITS/3 ML INSULN.PEN SQ SCH ×3 (08:00→17:19)
[2016-06-28] MEDS: PREDNISONE 20 MG TABLET PO SCH ×2 (08:59→12:02)
[2016-06-28 11:04] VITALS: BP 119/68
--- NOTE | 2016-06-28 11:09 | PDOC ---
PROGRESS NOTES Chief Complaint Chief Complaint 1. Ulcerative colitis flare, manifested as bloody stools 2. Malnutrition: mod-severe. 3. Anemia: 2/2 acute blood loss as well as chronic inflammation. 4. DM: 5. Hx DVT: 6. Hx C.diff: History of Present Illness History of Present Illness Still some bloody stools but coming down slow More abd pain today than yesterday Started on GI soft tuesday HH stable ESR 90s Pt tells me he takes pred 40 qdaily and 20 qhs PLAn: BAck down to liquid diet COnt IV flagyl and tPN REsume home regimen pred (40 Am, 20 qhs) - might need to even inc since slow improvement? =- will defer to GI Check ESR again today HH justen NOt ready top dc today Vitals Vitals Vital Signs Date Time Temp Pulse Resp B/P Pulse Ox O2 Delivery O2 Flow Rate FiO2 06/28/16 11:04 97.9 113 18 119/68 99 Room Air 97.9 Physical Exam General: Alert, Oriented X3, No acute distress Heart: Regular rate Lungs: Clear Abdomen: Normal bowel sounds, Soft Extremities: No edema Skin: No rashes Labs LABS Laboratory Tests Test 06/27/16 11:11 06/27/16 15:56 06/27/16 20:19 06/28/16 03:45 Glucose (Fingerstick) 183mg/dL (70-99) 163mg/dL (70-99) 140mg/dL (70-99) White Blood Count 11.9x10^3/uL (4.0-11.0) Red Blood Count 3.03x10^6/uL (4.30-5.70) Hemoglobin 8.7g/dL (13.0-17.5) Hematocrit 27.2% (39.0-53.0) Mean Corpuscular Volume 90fL (79-100) Mean Corpuscular Hemoglobin 29pg (25-35) Mean Corpuscular Hemoglobin Concent 32g/dL (31-37) Red Cell Distribution Width 15.8% (11.5-14.5) Platelet Count 288x10^3/uL (140-400) Neutrophils (%) (Auto) 62% (31-73) Lymphocytes (%) (Auto) 29% (24-48) Monocytes (%) (Auto) 8% (0-9) Eosinophils (%) (Auto) 1% (0-3) Basophils (%) (Auto) 1% (0-3) Neutrophils # (Auto) 7.4x10^3uL (1.8-7.7) Lymphocytes # (Auto) 3.4x10^3/uL (1.0-4.8) Monocytes # (Auto) 1.0x10^3/uL (0.0-1.1) Eosinophils # (Auto) 0.1x10^3/uL (0.0-0.7) Basophils # (Auto) 0.1x10^3/uL (0.0-0.2) Sodium Level 136mmol/L (136-145) Potassium Level 4.9mmol/L (3.5-5.1) Chloride Level 103mmol/L (98-107) Carbon Dioxide Level 27mmol/L (21-32) Anion Gap 6 (6-14) Blood Urea Nitrogen 5mg/dL (8-26) Creatinine 0.6mg/dL (0.7-1.3) Estimated GFR (Cockcroft-Gault) 185.5 Glucose Level 130mg/dL (70-99) Calcium Level 7.5mg/dL (8.5-10.1) Phosphorus Level 2.5mg/dL (2.6-4.7) Magnesium Level 1.8mg/dL (1.8-2.4) Test 06/28/16 07:34 06/28/16 10:32 Glucose (Fingerstick) 133mg/dL (70-99) 165mg/dL (70-99) Review of Systems Review of Systems abd pain, bloody stools, no emesis Assessment and Plan Assessmemt and Plan Problems Medical Problems: (1) Colitis Status: Acute Problems: Comment Review of Relevant I have reviewed the following items mariella (where applicable) has been applied. Labs Laboratory Tests Test 06/26/16 16:39 06/26/16 20:31 06/27/16 04:20 06/27/16 07:07 Glucose (Fingerstick) 186mg/dL (70-99) 129mg/dL (70-99) 146mg/dL (70-99) Sodium Level 133mmol/L (136-145) Potassium Level 4.5mmol/L (3.5-5.1) Chloride Level 100mmol/L (98-107) Carbon Dioxide Level 29mmol/L (21-32) Anion Gap 4 (6-14) Blood Urea Nitrogen 8mg/dL (8-26) Creatinine 0.6mg/dL (0.7-1.3) Estimated GFR (Cockcroft-Gault) 185.5 Glucose Level 179mg/dL (70-99) Calcium Level 7.5mg/dL (8.5-10.1) Phosphorus Level 1.8mg/dL (2.6-4.7) Magnesium Level 1.8mg/dL (1.8-2.4) Test 06/27/16 11:11 06/27/16 15:56 06/27/16 20:19 06/28/16 03:45 Glucose (Fingerstick) 183mg/dL (70-99) 163mg/dL (70-99) 140mg/dL (70-99) White Blood Count 11.9x10^3/uL (4.0-11.0) Red Blood Count 3.03x10^6/uL (4.30-5.70) Hemoglobin 8.7g/dL (13.0-17.5) Hematocrit 27.2% (39.0-53.0) Mean Corpuscular Volume 90fL (79-100) Mean Corpuscular Hemoglobin 29pg (25-35) Mean Corpuscular Hemoglobin Concent 32g/dL (31-37) Red Cell Distribution Width 15.8% (11.5-14.5) Platelet Count 288x10^3/uL (140-400) Neutrophils (%) (Auto) 62% (31-73) Lymphocytes (%) (Auto) 29% (24-48) Monocytes (%) (Auto) 8% (0-9) Eosinophils (%) (Auto) 1% (0-3) Basophils (%) (Auto) 1% (0-3) Neutrophils # (Auto) 7.4x10^3uL (1.8-7.7) Lymphocytes # (Auto) 3.4x10^3/uL (1.0-4.8) Monocytes # (Auto) 1.0x10^3/uL (0.0-1.1) Eosinophils # (Auto) 0.1x10^3/uL (0.0-0.7) Basophils # (Auto) 0.1x10^3/uL (0.0-0.2) Sodium Level 136mmol/L (136-145) Potassium Level 4.9mmol/L (3.5-5.1) Chloride Level 103mmol/L (98-107) Carbon Dioxide Level 27mmol/L (21-32) Anion Gap 6 (6-14) Blood Urea Nitrogen 5mg/dL (8-26) Creatinine 0.6mg/dL (0.7-1.3) Estimated GFR (Cockcroft-Gault) 185.5 Glucose Level 130mg/dL (70-99) Calcium Level 7.5mg/dL (8.5-10.1) Phosphorus Level 2.5mg/dL (2.6-4.7) Magnesium Level 1.8mg/dL (1.8-2.4) Test 06/28/16 07:34 06/28/16 10:32 Glucose (Fingerstick) 133mg/dL (70-99) 165mg/dL (70-99) Laboratory Tests Test 06/27/16 11:11 06/27/16 15:56 06/27/16 20:19 06/28/16 03:45 Glucose (Fingerstick) 183mg/dL (70-99) 163mg/dL (70-99) 140mg/dL (70-99) White Blood Count 11.9x10^3/uL (4.0-11.0) Red Blood Count 3.03x10^6/uL (4.30-5.70) Hemoglobin 8.7g/dL (13.0-17.5) Hematocrit 27.2% (39.0-53.0) Mean Corpuscular Volume 90fL (79-100) Mean Corpuscular Hemoglobin 29pg (25-35) Mean Corpuscular Hemoglobin Concent 32g/dL (31-37) Red Cell Distribution Width 15.8% (11.5-14.5) Platelet Count 288x10^3/uL (140-400) Neutrophils (%) (Auto) 62% (31-73) Lymphocytes (%) (Auto) 29% (24-48) Monocytes (%) (Auto) 8% (0-9) Eosinophils (%) (Auto) 1% (0-3) Basophils (%) (Auto) 1% (0-3) Neutrophils # (Auto) 7.4x10^3uL (1.8-7.7) Lymphocytes # (Auto) 3.4x10^3/uL (1.0-4.8) Monocytes # (Auto) 1.0x10^3/uL (0.0-1.1) Eosinophils # (Auto) 0.1x10^3/uL (0.0-0.7) Basophils # (Auto) 0.1x10^3/uL (0.0-0.2) Sodium Level 136mmol/L (136-145) Potassium Level 4.9mmol/L (3.5-5.1) Chloride Level 103mmol/L (98-107) Carbon Dioxide Level 27mmol/L (21-32) Anion Gap 6 (6-14) Blood Urea Nitrogen 5mg/dL (8-26) Creatinine 0.6mg/dL (0.7-1.3) Estimated GFR (Cockcroft-Gault) 185.5 Glucose Level 130mg/dL (70-99) Calcium Level 7.5mg/dL (8.5-10.1) Phosphorus Level 2.5mg/dL (2.6-4.7) Magnesium Level 1.8mg/dL (1.8-2.4) Test 06/28/16 07:34 06/28/16 10:32 Glucose (Fingerstick) 133mg/dL (70-99) 165mg/dL (70-99) Microbiology 06/18/16 Stool Culture - Final, Complete 06/18/16 Stool Culture Result 1 (DEANA) - Final, Complete 06/18/16 Campylobacter Antigen Assay - Final, Complete 06/18/16 Campylobactor Result 1 - Final, Complete 06/18/16 Shiga Toxin Test - Final, Complete Medications Current Medications Fentanyl Citrate 25 mcg 25 mcg PRN Q15MIN PRN IV PAIN GREATER THAN 3/10 Last administered on 06/17/16t 16:59; Start 06/17/16 at 15:45; Stop 06/18/16 at 15:44; Status DC Sodium Chloride (Iv Sodium Chloride 0.9% 1000ml Bag) 1,000 ml @ 1,000 mls/hr Q1H IV Last administered on 06/17/16 16:51; Start 06/17/16 at 15:33; Stop at 16:46; Status DC Ondansetron HCl (Zofran) 4 mg 1X ONCE IV Last administered on 06/17/16 16:57; Start 06/17/16 at 15:45; Stop 06/17/16 at 16:46; Status DC Iohexol (Omnipaque 300 Mg/ml) 75 ml 1X ONCE IV Last administered on 06/17/16 17:45; Start 06/17/16 at 17:30; Stop 06/17/16 at 17:31; Status DC Info 1 each 1 each PRN DAILY PRN MC SEE COMMENTS; Start 06/17/16 at 17:45; Stop 06/19/16 at 17:44; Status DC Ceftriaxone Sodium 50 ml @ 100 mls/hr 1X ONCE IV Last administered on 19:50; Start 06/17/16 at 18:45; Stop 06/17/16 at 19:14; Status DC Ceftriaxone Sodium 1 gm/ Sodium Chloride 50 ml @ 100 mls/hr Q24H IV Last administered on 06/22/16 18:33; Start 06/18/16 at 18:00; Stop 06/23/16 at 13:20 ; Status DC Metronidazole 100 ml @ 100 mls/hr Q8HRS IV Last administered on 06/28/16 06: 03; Start 06/18/16 at 06:00 Metronidazole (FLAGYL 500Mmg PREMIX) 100 ml @ 100 mls/hr 1X ONCE IV Last administered on 06/17/16 21:04; Start 06/17/16 at 18:45; Stop 06/17/16 at 19:44; Status DC Ondansetron HCl (Zofran) 4 mg PRN Q8HRS PRN IV NAUSEA/VOMITING Last administered on 06/18/16 08:38; Start 06/17/16 at 18:45; Stop 06/18/16 at 18:44 ; Status DC Morphine Sulfate 4 mg PRN Q2HR PRN IV PAIN Last administered on 06/18/16 10:38 ; Start 06/17/16 at 18:45; Stop 06/18/16 at 18:44; Status DC Acetaminophen (Tylenol) 650 mg PRN Q4HRS PRN PO FEVER Last administered on 06/18 10:52; Start 06/17/16 at 18:45; Stop 06/18/16 at 18:44; Status DC Methylprednisolone Sodium Succinate 40 mg 40 mg Q12HR IV Last administered on 09:45; Start 06/18/16 at 10:00; Stop 06/21/16 at 14:26; Status DC Dextrose/Sodium Chloride (Iv D5% - 1/2 NS) 1,000 ml @ 100 mls/hr Q10H IV Last administered on 06/21/16 14:30; Start 06/18/16 at 16:00; Stop 06/21/16 at 22:36 ; Status DC Morphine Sulfate (Morphine Ir) 15 mg PRN Q4HRS PRN PO PAIN Last administered on 06/28/16 06:24; Start 06/18/16 at 15:30 Phenyleph/Shark Oil/Min Oil/Petrol (Preparation H) 1 christine PRN Q4HRS PRN RC RECTAL PAIN; Start 06/18/16 at 15:30 Prednisone (Prednisone) 20 mg BID PO Last administered on 06/28/16 08:59; Start 06/21/16 at 21:00 Insulin Aspart (Novolog) 0-7 UNITS TIDWMEALS SQ Last administered on 06/27/16 17:08; Start 06/22/16 at 08:00 Dextrose 12.5 gm 12.5 gm PRN Q15MIN PRN IV SEE COMMENTS; Start 06/21/16 at 19: 15 Amino Acids/ Glycerin/ Electrolytes (Procalamine) 1,000 ml @ 80 mls/hr [id number] IV Last administered on 06/25/16 11:30; Start 06/21/16 at 20:00; Stop at 21:59; Status DC Diphenhydramine HCl 25 mg 25 mg PRN Q6HRS PRN PO ITCHING Last administered on 20:49; Start 06/21/16 at 22:45 Iron Sucrose/ Sodium Chloride (Venofer/Iv Sodium Chloride 0.9% 250ml) 265 ml @ 90 mls/hr Q12HR IV Last administered on 06/23/16 09:53; Start 06/22/16 at 10: 00; Stop 06/23/16 at 20:00; Status DC Iohexol (Omnipaque 240 Mg/ml) 30 ml 1X ONCE PO Last administered on 06/22/16 13:25; Start 06/22/16 at 12:00; Stop 06/22/16 at 12:03; Status DC Iohexol (Omnipaque 300 Mg/ml) 75 ml 1X ONCE IV Last administered on 06/22/16 13:25; Start 06/22/16 at 12:00; Stop 06/22/16 at 12:03; Status DC Info 1 each PRN DAILY PRN MC SEE COMMENTS Last administered on 06/27/16 13:13 ; Start 06/25/16 at 05:00 Fentanyl Citrate 50 mcg 50 mcg PRN Q2HR PRN IV PAIN Last administered on 11:04; Start 06/25/16 at 09:15 Sodium Chloride 90 meq/Potassium Chloride 50 meq/ Potassium Phosphate 13.6 mmol/ Magnesium Sulfate 10 meq/ Calcium Gluconate 10 meq/ Multivitamins/ Minerals 10 ml/ Chromium/Copper/ Manganese/Seleni/ Zn 1 ml/Total Parenteral Nutrition/Amino Acids/Dextrose/ Fat Emulsion Intravenous 1,512 ml @ 63 mls/hr TPN CONT IV Last administered on 06/25/16 21:56; Start 06/25/16 at 22:00; Stop 06/26/16 at 21:59; Status DC Sodium Phosphate 15 mmol/Dextrose 255 ml @ 63.75 mls/ hr 1X ONCE IV Last administered on 06/26/16 12:15; Start 06/26/16 at 11:30; Stop 06/26/16 at 15:29 ; Status DC Sodium Chloride 90 meq/Potassium Chloride 60 meq/ Potassium Phosphate 15 mmol/ Magnesium Sulfate 12 meq/Calcium Gluconate 10 meq/ Multivitamins/ Minerals 10 ml / Chromium/Copper/ Manganese/Seleni/ Zn 1 ml/Total Parenteral Nutrition/Amino Acids/Dextrose/ Fat Emulsion Intravenous 1,512 ml @ 63 mls/hr TPN CONT IV Last administered on 06/26/16 21:04; Start 06/26/16 at 22:00; Stop 06/27/16 at 21:59; Status DC Sodium Phosphate 15 mmol/Dextrose 255 ml @ 63.75 mls/ hr 1X ONCE IV Last administered on 06/27/16 11:59; Start 06/27/16 at 11:45; Stop 06/27/16 at 15:44 ; Status DC Sodium Chloride/ Sodium Phosphate/ Potassium Chloride/ Potassium Phosphate/ Magnesium Sulfate/ Calcium Gluconate/ Multivitamins/ Minerals/Chromium/ Copper/ Manganese/ Seleni/Zn/Total Parenteral Nutrition/Amino Acids/Dextrose/ Fat Emulsion Intravenous (Sodium Chloride/ Potass... 1,512 ml @ 63 mls/hr TPN CONT IV Last administered on 06/27/16 20:50; Start 06/27/16 at 22:00; Stop at 21:59 Active Scripts Active Reported One Daily (Multivitamin) 1 Each Tablet 1 Each PO DAILY Prednisone 20 Mg Tablet 1 Tab PO HS [boost oral liquid] Nystatin 100,000 Unit/1 Ml Oral.susp 5 Ml PO BID Acetaminophen 500 Mg Tablet 1,000 Mg PO PRN BID PRN Tigan (Trimethobenzamide Hcl) 100 Mg/1 Ml Vial 100 Mg IM PRN BID Prednisone 20 Mg Tablet 40 Mg PO DAILY Caplet (Pnv95/Ferrous Fumarate/FA) 1 Each Tablet 1 Each PO DAILY Loperamide (Loperamide Hcl) 2 Mg Tablet 2 Tab PO PRN DAILY PRN Hydroxyzine Hcl 25 Mg Tablet 1 Tab PO BID Vitals/I & O Vital Sign - Last 24 Hours 06/27/16 06/27/16 06/27/16 06/27/16 11:59 14:49 14:52 16:58 Temp 97.9 97.9 Pulse 89 Resp 18 B/P 103/61 Pulse Ox 99 O2 Delivery Room Air Room Air Room Air Room Air 06/27/16 06/27/16 06/27/16 06/27/16 17:38 19:00 20:10 20:49 Temp 99.3 99.3 Pulse 95 Resp 18 18 18 B/P 103/65 Pulse Ox 100 O2 Delivery Room Air Room Air Room Air Room Air 06/27/16 06/28/16 06/28/16 06/28/16 22:48 03:00 03:50 06:24 Temp 99.6 98.8 99.6 98.8 Pulse 92 87 Resp 17 18 18 18 B/P 99/69 94/73 Pulse Ox 100 96 O2 Delivery Room Air Room Air Room Air Room Air 06/28/16 06/28/16 06/28/1606/28/17 07:00 08:00 11:04 11:04 Temp 97.9 97.9 97.9 97.9 Pulse 94 113 Resp 18 18 B/P 90/63 119/68 Pulse Ox 98 99 O2 Delivery Room Air Room Air Room Air Room Air Intake and Output 06/27/16 06/27/16 06/28/16 15:00 23:00 07:00 Intake Total 240 ml 720 ml 240 ml Output Total 100 ml 350 ml Balance 140 ml 370 ml 240 ml JOYCE GARCIA MD Jun 28, 2016 11:09
[2016-06-28 11:55] LABS: NUCLEATED RBC 2
[2016-06-28 11:56] LABS: ANISOCYTOSIS SLIGHT; PLT ESTIMATE ADEQUATE (ADEQUATE); POLYCHROMASIA SLIGHT
[2016-06-28] MEDS: TPN PER PHARMACY MC PRN ×2 (12:13→12:20)
--- NOTE | 2016-06-28 12:37 | PDOC ---
Subjective: Subjective: Still some pain, loose "chunky" stools, mucousy blood on toilet tissue. Bleeding had improved but recurred w/ advancing diet. Got up to walk yesterday. Objective: Objective: Per RN - improved w/ less pain and bleeding over the weekend. Then advanced diet, pt reporting increased bleeding. Prednisone was increased and diet changed from GI soft to full liquids. Vital Signs: Vital Signs Date Time Temp Pulse Resp B/P Pulse Ox O2 Delivery O2 Flow Rate FiO2 06/28/16 11:40 Room Air 06/28/16 11:04 97.9 113 18 119/68 99 97.9 Labs: Laboratory Tests Test 06/27/16 15:56 06/27/16 20:19 06/28/16 03:45 06/28/16 07:34 Glucose (Fingerstick) 163mg/dL 140mg/dL 133mg/dL White Blood Count 11.9x10^3/uL Red Blood Count 3.03x10^6/uL Hemoglobin 8.7g/dL Hematocrit 27.2% Mean Corpuscular Volume 90fL Mean Corpuscular Hemoglobin 29pg Mean Corpuscular Hemoglobin Concent 32g/dL Red Cell Distribution Width 15.8% Platelet Count 288x10^3/uL Neutrophils (%) (Auto) 62% Lymphocytes (%) (Auto) 29% Monocytes (%) (Auto) 8% Eosinophils (%) (Auto) 1% Basophils (%) (Auto) 1% Neutrophils # (Auto) 7.4x10^3uL Lymphocytes # (Auto) 3.4x10^3/uL Monocytes # (Auto) 1.0x10^3/uL Eosinophils # (Auto) 0.1x10^3/uL Basophils # (Auto) 0.1x10^3/uL Segmented Neutrophils % 36% Band Neutrophils % 28% Lymphocytes % 26% Monocytes % 6% Metamyelocytes % 3% Myelocytes % 1% Nucleated Red Blood Cells 2 Platelet Estimate Adequate Polychromasia Slight Basophilic Stippling Present Anisocytosis Slight Sodium Level 136mmol/L Potassium Level 4.9mmol/L Chloride Level 103mmol/L Carbon Dioxide Level 27mmol/L Anion Gap 6 Blood Urea Nitrogen 5mg/dL Creatinine 0.6mg/dL Estimated GFR (Cockcroft-Gault) 185.5 Glucose Level 130mg/dL Calcium Level 7.5mg/dL Phosphorus Level 2.5mg/dL Magnesium Level 1.8mg/dL Test 06/28/16 10:32 Glucose (Fingerstick) 165mg/dL PE: GEN: NAD LUNGS: CTAB HEART: RRR ABD: NABS, soft, less tender NEURO/PSYCH: A & O 3 A/P: Ulcerative colitis -flare w/ bloody diarrhea and abd pain, onset 04/2016 - IMPROVING -CT 06/17 w/ thickening in majority of colon, interval CT 06/22 w/ improvement -h/o C Diff, neg here (on Flagyl) -on PO steroids -on TPN, GI soft diet -- Note changes w/ increased PO prednisone and back to full liquid diet. Hgb stable. Will review above w/ Dr. Ya, but overall seems improving, can hopefully look to DC soon w/ GI follow-up for long-term UC treatment as outpt. ALEXIS RIGGS Jun 28, 2016 12:37
[2016-06-28 15:04] VITALS: BP 107/72
[2016-06-28 19:00] VITALS: BP 106/68
[2016-06-28] MEDS ORDERED: PREDNISONE 20 MG TABLET PO SCH (21:00)
[2016-06-28] MEDS ORDERED: TOTAL PARENTERAL NUTRITION IV SCH ×11 (22:00)
[2016-06-28] MEDS ORDERED: DEXTROSE 70% IV SCH ×11 (22:00)
[2016-06-28] MEDS ORDERED: AMINO ACIDS IV SCH ×11 (22:00)
[2016-06-28] MEDS ORDERED: [UNRECOGNIZED DRUG - OTHER] IV SCH ×11 (22:00)
[2016-06-28] MEDS: DIPHENHYDRAMINE HCL 25 MG CAPSULE PO PRN (22:26)
[2016-06-28 23:28] VITALS: BP 111/65
[2016-06-29] MEDS: FENTANYL PF 100 MCG/2 ML VIAL. IV PRN ×2 (03:38→09:05)
[2016-06-29 03:39] VITALS: BP 107/62
[2016-06-29] MEDS: MORPHINE IR 15 MG TABLET PO PRN ×2 (05:49→15:10)
[2016-06-29] MEDS: METRONIDAZOLE 500mg PREMIX 100 ML IV SCH ×2 (06:21→15:13)
[2016-06-29 06:43] LABS: HEMATOCRIT 25.2 % (39.0-53.0)
[2016-06-29 07:15] VITALS: BP 104/68
[2016-06-29] MEDS: INSULIN ASPART 300 UNITS/3 ML INSULN.PEN SQ SCH ×3 (08:00→17:29)
[2016-06-29] MEDS: PREDNISONE 20 MG TABLET PO SCH (08:38)
[2016-06-29 11:15] VITALS: BP 106/63
--- NOTE | 2016-06-29 12:28 | PDOC ---
PROGRESS NOTES Chief Complaint Chief Complaint 1. Ulcerative colitis flare, manifested as bloody stools 2. Malnutrition: mod-severe. 3. Anemia: 2/2 acute blood loss as well as chronic inflammation. 4. DM: 5. Hx DVT: 6. Hx C.diff: History of Present Illness History of Present Illness Still some bloody stools but coming down slow Less abd pain today since backed down on liquid diet ESR still 90s (96 today) I have resumed his home dose pred regimen HH stable despite bloody bM PLAn: cont liquid diet for now COnt IV flagyl and tPN REsume home regimen pred (40 Am, 20 qhs) - might need to even inc since slow improvement? =- will defer to GI NOt ready top dc today Vitals Vitals Vital Signs Date Time Temp Pulse Resp B/P Pulse Ox O2 Delivery O2 Flow Rate FiO2 06/29/16 09:36 Room Air 06/29/16 07:15 98.6 81 16 104/68 98 98.6 Physical Exam General: Alert, Oriented X3, No acute distress Heart: Regular rate Lungs: Clear Abdomen: Normal bowel sounds, Soft Extremities: No edema Skin: No rashes Labs LABS Laboratory Tests Test 06/28/16 14:30 06/28/16 16:28 06/28/16 21:22 06/29/16 06:20 Erythrocyte Sedimentation Rate 96 (0-15) Glucose (Fingerstick) 191mg/dL (70-99) 231mg/dL (70-99) Hemoglobin 8.0g/dL (13.0-17.5) Hematocrit 25.2% (39.0-53.0) Mean Corpuscular Hemoglobin Concent 32g/dL (31-37) Test 06/29/16 07:35 06/29/16 11:49 Glucose (Fingerstick) 138mg/dL (70-99) 139mg/dL (70-99) Review of Systems Review of Systems bloody bm, abd pain, no fevers Assessment and Plan Assessmemt and Plan Problems Medical Problems: (1) Colitis Status: Acute Problems: Comment Review of Relevant I have reviewed the following items mariella (where applicable) has been applied. Labs Laboratory Tests Test 06/27/16 15:56 06/27/16 20:19 06/28/16 03:45 06/28/16 07:34 Glucose (Fingerstick) 163mg/dL (70-99) 140mg/dL (70-99) 133mg/dL (70-99) White Blood Count 11.9x10^3/uL (4.0-11.0) Red Blood Count 3.03x10^6/uL (4.30-5.70) Hemoglobin 8.7g/dL (13.0-17.5) Hematocrit 27.2% (39.0-53.0) Mean Corpuscular Volume 90fL (79-100) Mean Corpuscular Hemoglobin 29pg (25-35) Mean Corpuscular Hemoglobin Concent 32g/dL (31-37) Red Cell Distribution Width 15.8% (11.5-14.5) Platelet Count 288x10^3/uL (140-400) Neutrophils (%) (Auto) 62% (31-73) Lymphocytes (%) (Auto) 29% (24-48) Monocytes (%) (Auto) 8% (0-9) Eosinophils (%) (Auto) 1% (0-3) Basophils (%) (Auto) 1% (0-3) Neutrophils # (Auto) 7.4x10^3uL (1.8-7.7) Lymphocytes # (Auto) 3.4x10^3/uL (1.0-4.8) Monocytes # (Auto) 1.0x10^3/uL (0.0-1.1) Eosinophils # (Auto) 0.1x10^3/uL (0.0-0.7) Basophils # (Auto) 0.1x10^3/uL (0.0-0.2) Segmented Neutrophils % 36% (35-66) Band Neutrophils % 28% (0-9) Lymphocytes % 26% (24-48) Monocytes % 6% (0-10) Metamyelocytes % 3% (0-0) Myelocytes % 1% (0-0) Nucleated Red Blood Cells 2 Platelet Estimate Adequate (ADEQUATE) Polychromasia Slight Basophilic Stippling Present Anisocytosis Slight Sodium Level 136mmol/L (136-145) Potassium Level 4.9mmol/L (3.5-5.1) Chloride Level 103mmol/L (98-107) Carbon Dioxide Level 27mmol/L (21-32) Anion Gap 6 (6-14) Blood Urea Nitrogen 5mg/dL (8-26) Creatinine 0.6mg/dL (0.7-1.3) Estimated GFR (Cockcroft-Gault) 185.5 Glucose Level 130mg/dL (70-99) Calcium Level 7.5mg/dL (8.5-10.1) Phosphorus Level 2.5mg/dL (2.6-4.7) Magnesium Level 1.8mg/dL (1.8-2.4) Test 06/28/16 10:32 06/28/16 14:30 06/28/16 16:28 06/28/16 21:22 Glucose (Fingerstick) 165mg/dL (70-99) 191mg/dL (70-99) 231mg/dL (70-99) Erythrocyte Sedimentation Rate 96 (0-15) Test 06/29/16 06:20 06/29/16 07:35 06/29/16 11:49 Hemoglobin 8.0g/dL (13.0-17.5) Hematocrit 25.2% (39.0-53.0) Mean Corpuscular Hemoglobin Concent 32g/dL (31-37) Glucose (Fingerstick) 138mg/dL (70-99) 139mg/dL (70-99) Laboratory Tests Test 06/28/16 14:30 06/28/16 16:28 06/28/16 21:22 06/29/16 06:20 Erythrocyte Sedimentation Rate 96 (0-15) Glucose (Fingerstick) 191mg/dL (70-99) 231mg/dL (70-99) Hemoglobin 8.0g/dL (13.0-17.5) Hematocrit 25.2% (39.0-53.0) Mean Corpuscular Hemoglobin Concent 32g/dL (31-37) Test 06/29/16 07:35 06/29/16 11:49 Glucose (Fingerstick) 138mg/dL (70-99) 139mg/dL (70-99) Microbiology 06/18/16 Stool Culture - Final, Complete 06/18/16 Stool Culture Result 1 (DEANA) - Final, Complete 06/18/16 Campylobacter Antigen Assay - Final, Complete 06/18/16 Campylobactor Result 1 - Final, Complete 06/18/16 Shiga Toxin Test - Final, Complete Medications Current Medications Fentanyl Citrate 25 mcg 25 mcg PRN Q15MIN PRN IV PAIN GREATER THAN 3/10 Last administered on 06/17/16 16:59; Start 06/17/16 at 15:45; Stop 06/18/16 at 15:44; Status DC Sodium Chloride (Iv Sodium Chloride 0.9% 1000ml Bag) 1,000 ml @ 1,000 mls/hr Q1H IV Last administered on 06/17/16 16:51; Start 06/17/16 at 15:33; Stop at 16:46; Status DC Ondansetron HCl (Zofran) 4 mg 1X ONCE IV Last administered on 06/17/16 16:57; Start 06/17/16 at 15:45; Stop 06/17/16 at 16:46; Status DC Iohexol (Omnipaque 300 Mg/ml) 75 ml 1X ONCE IV Last administered on 06/17/16 17:45; Start 06/17/16 at 17:30; Stop 06/17/16 at 17:31; Status DC Info 1 each 1 each PRN DAILY PRN MC SEE COMMENTS; Start 06/17/16 at 17:45; Stop 06/19/16 at 17:44; Status DC Ceftriaxone Sodium 50 ml @ 100 mls/hr 1X ONCE IV Last administered on 19:50; Start 06/17/16 at 18:45; Stop 06/17/16 at 19:14; Status DC Ceftriaxone Sodium 1 gm/ Sodium Chloride 50 ml @ 100 mls/hr Q24H IV Last administered on 06/22/16 18:33; Start 06/18/16 at 18:00; Stop 06/23/16 at 13:20 ; Status DC Metronidazole 100 ml @ 100 mls/hr Q8HRS IV Last administered on 06/29/16 06: 21; Start 06/18/16 at 06:00 Metronidazole (FLAGYL 500Mmg PREMIX) 100 ml @ 100 mls/hr 1X ONCE IV Last administered on 06/17/16 21:04; Start 06/17/16 at 18:45; Stop 06/17/16 at 19:44; Status DC Ondansetron HCl (Zofran) 4 mg PRN Q8HRS PRN IV NAUSEA/VOMITING Last administered on 06/18/16 08:38; Start 06/17/16 at 18:45; Stop 06/18/16 at 18:44 ; Status DC Morphine Sulfate 4 mg PRN Q2HR PRN IV PAIN Last administered on 06/18/16 10:38 ; Start 06/17/16 at 18:45; Stop 06/18/16 at 18:44; Status DC Acetaminophen (Tylenol) 650 mg PRN Q4HRS PRN PO FEVER Last administered on 06/18 10:52; Start 06/17/16 at 18:45; Stop 06/18/16 at 18:44; Status DC Methylprednisolone Sodium Succinate 40 mg 40 mg Q12HR IV Last administered on 09:45; Start 06/18/16 at 10:00; Stop 06/21/16 at 14:26; Status DC Dextrose/Sodium Chloride (Iv D5% - 1/2 NS) 1,000 ml @ 100 mls/hr Q10H IV Last administered on 06/21/16 14:30; Start 06/18/16 at 16:00; Stop 06/21/16 at 22:36 ; Status DC Morphine Sulfate (Morphine Ir) 15 mg PRN Q4HRS PRN PO PAIN Last administered on 06/29/16 05:49; Start 06/18/16 at 15:30 Phenyleph/Shark Oil/Min Oil/Petrol (Preparation H) 1 christine PRN Q4HRS PRN RC RECTAL PAIN; Start 06/18/16 at 15:30 Prednisone (Prednisone) 20 mg BID PO Last administered on 06/28/16 08:59; Start 06/21/16 at 21:00; Stop 06/28/16 at 11:07; Status DC Insulin Aspart (Novolog) 0-7 UNITS TIDWMEALS SQ Last administered on 06/28/16 17:19; Start 06/22/16 at 08:00 Dextrose 12.5 gm 12.5 gm PRN Q15MIN PRN IV SEE COMMENTS; Start 06/21/16 at 19: 15 Amino Acids/ Glycerin/ Electrolytes (Procalamine) 1,000 ml @ 80 mls/hr [id number] IV Last administered on 06/25/16 11:30; Start 06/21/16 at 20:00; Stop at 21:59; Status DC Diphenhydramine HCl 25 mg 25 mg PRN Q6HRS PRN PO ITCHING Last administered on 22:26; Start 06/21/16 at 22:45 Iron Sucrose/ Sodium Chloride (Venofer/Iv Sodium Chloride 0.9% 250ml) 265 ml @ 90 mls/hr Q12HR IV Last administered on 06/23/16 09:53; Start 06/22/16 at 10: 00; Stop 06/23/16 at 20:00; Status DC Iohexol (Omnipaque 240 Mg/ml) 30 ml 1X ONCE PO Last administered on 06/22/16 13:25; Start 06/22/16 at 12:00; Stop 06/22/16 at 12:03; Status DC Iohexol (Omnipaque 300 Mg/ml) 75 ml 1X ONCE IV Last administered on 06/22/16 13:25; Start 06/22/16 at 12:00; Stop 06/22/16 at 12:03; Status DC Info 1 each PRN DAILY PRN MC SEE COMMENTS Last administered on 06/28/16 12:20 ; Start 06/25/16 at 05:00 Fentanyl Citrate 50 mcg 50 mcg PRN Q2HR PRN IV PAIN Last administered on 09:05; Start 06/25/16 at 09:15 Sodium Chloride 90 meq/Potassium Chloride 50 meq/ Potassium Phosphate 13.6 mmol/ Magnesium Sulfate 10 meq/ Calcium Gluconate 10 meq/ Multivitamins/ Minerals 10 ml/ Chromium/Copper/ Manganese/Seleni/ Zn 1 ml/Total Parenteral Nutrition/Amino Acids/Dextrose/ Fat Emulsion Intravenous 1,512 ml @ 63 mls/hr TPN CONT IV Last administered on 06/25/16 21:56; Start 06/25/16 at 22:00; Stop 06/26/16 at 21:59; Status DC Sodium Phosphate 15 mmol/Dextrose 255 ml @ 63.75 mls/ hr 1X ONCE IV Last administered on 06/26/16 12:15; Start 06/26/16 at 11:30; Stop 06/26/16 at 15:29 ; Status DC Sodium Chloride 90 meq/Potassium Chloride 60 meq/ Potassium Phosphate 15 mmol/ Magnesium Sulfate 12 meq/Calcium Gluconate 10 meq/ Multivitamins/ Minerals 10 ml / Chromium/Copper/ Manganese/Seleni/ Zn 1 ml/Total Parenteral Nutrition/Amino Acids/Dextrose/ Fat Emulsion Intravenous 1,512 ml @ 63 mls/hr TPN CONT IV Last administered on 06/26/16 21:04; Start 06/26/16 at 22:00; Stop 06/27/16 at 21:59; Status DC Sodium Phosphate 15 mmol/Dextrose 255 ml @ 63.75 mls/ hr 1X ONCE IV Last administered on 06/27/16 11:59; Start 06/27/16 at 11:45; Stop 06/27/16 at 15:44 ; Status DC Sodium Chloride/ Sodium Phosphate/ Potassium Chloride/ Potassium Phosphate/ Magnesium Sulfate/ Calcium Gluconate/ Multivitamins/ Minerals/Chromium/ Copper/ Manganese/ Seleni/Zn/Total Parenteral Nutrition/Amino Acids/Dextrose/ Fat Emulsion Intravenous (Sodium Chloride/ Potass... 1,512 ml @ 63 mls/hr TPN CONT IV Last administered on 06/27/16 20:50; Start 06/27/16 at 22:00; Stop at 21:59; Status DC Prednisone (Prednisone) 20 mg QHS PO Last administered on 06/28/16 20:07; Start 06/28/16 at 21:00 Prednisone 40 mg 40 mg DAILY PO Last administered on 06/29/16 08:38; Start at 11:06 Sodium Chloride/ Sodium Phosphate/ Potassium Chloride/ Potassium Phosphate/ Magnesium Sulfate/ Calcium Gluconate/ Multivitamins/ Minerals/Chromium/ Copper/ Manganese/ Seleni/Zn/Total Parenteral Nutrition/Amino Acids/Dextrose/ Fat Emulsion Intravenous (Sodium Chloride/ Potass... 1,512 ml @ 63 mls/hr TPN CONT IV Last administered on 06/28/16 22:21; Start 06/28/16 at 22:00; Stop at 21:59 Active Scripts Active Reported One Daily (Multivitamin) 1 Each Tablet 1 Each PO DAILY Prednisone 20 Mg Tablet 1 Tab PO HS [boost oral liquid] Nystatin 100,000 Unit/1 Ml Oral.susp 5 Ml PO BID Acetaminophen 500 Mg Tablet 1,000 Mg PO PRN BID PRN Tigan (Trimethobenzamide Hcl) 100 Mg/1 Ml Vial 100 Mg IM PRN BID Prednisone 20 Mg Tablet 40 Mg PO DAILY Caplet (Pnv95/Ferrous Fumarate/FA) 1 Each Tablet 1 Each PO DAILY Loperamide (Loperamide Hcl) 2 Mg Tablet 2 Tab PO PRN DAILY PRN Hydroxyzine Hcl 25 Mg Tablet 1 Tab PO BID Vitals/I & O Vital Sign - Last 24 Hours 06/28/16 06/28/16 06/28/16 06/28/16 14:21 15:04 19:00 20:08 Temp 97.9 98.7 97.9 98.7 Pulse 104 105 Resp B/P 107/72 106/68 Pulse Ox 100 99 100 O2 Delivery Room Air Room Air Room Air Room Air 06/28/16 06/28/16 06/28/16 06/28/16 20:38 22:15 22:27 23:28 Temp 98.6 98.6 Pulse 82 Resp 18 B/P 111/65 Pulse Ox 99 O2 Delivery Room Air Room Air Room Air 06/29/16 06/29/16 06/29/16 06/29/16 03:38 03:39 04:08 05:49 Temp 98.1 98.1 Pulse 80 Resp 18 B/P 107/62 Pulse Ox 99 99 99 O2 Delivery Room Air Room Air Room Air 06/29/16 06/29/16 06/29/16 06/29/16 06:49 07:15 07:50 09:05 Temp 98.6 98.6 Pulse 81 Resp 16 B/P 104/68 Pulse Ox 98 O2 Delivery Room Air Room Air Room Air Room Air 06/29/16 09:36 O2 Delivery Room Air Intake and Output 06/28/16 06/28/16 06/29/16 15:00 23:00 07:00 Intake Total 240 ml 2272 ml 500 ml Output Total 300 ml 1670 ml Balance 240 ml 1972 ml -1170 ml JOYCE GARCIA MD Jun 29, 2016 12:28
--- NOTE | 2016-06-29 14:01 | PDOC ---
Subjective: Subjective: More stools w/ full liquids. Pain, bleeding stable - less overall. Objective: Objective: Per RN - reports overnight of passing blood clots. Asked for Fentanyl this morning. Vital Signs: Vital Signs Date Time Temp Pulse Resp B/P Pulse Ox O2 Delivery O2 Flow Rate FiO2 06/29/16 11:15 98.9 93 18 106/63 99 Room Air 98.9 Labs: Laboratory Tests Test 06/28/16 14:30 06/28/16 16:28 06/28/16 21:22 06/29/16 06:20 Erythrocyte Sedimentation Rate 96 Glucose (Fingerstick) 191mg/dL 231mg/dL Hemoglobin 8.0g/dL Hematocrit 25.2% Mean Corpuscular Hemoglobin Concent 32g/dL Test 06/29/16 07:35 06/29/16 11:49 Glucose (Fingerstick) 138mg/dL 139mg/dL PE: GEN: NAD LUNGS: CTAB HEART: RRR ABD: BS+, tender from epigastrium to LLQ (stable) NEURO/PSYCH: A & O 3 A/P: Ulcerative colitis -flare w/ bloody diarrhea and abd pain, onset 04/2016 -CT 06/17 w/ thickening in majority of colon, interval CT 06/22 w/ improvement -h/o C Diff, neg here (on Flagyl) -on PO steroids 40mg a.m. + 20mg p.m. which apparently was what he was taking prior to admission, did have IV steroids earlier this admission -on full liquids + TPN -Hgb drifting -- D/w Dr. Snyder, concern w/ elevated ESR. With drifting Hgb and ongoing bleeding, will review w/ Dr. Ya re: need for IV steroids, etc. ALEXIS RIGGS Jun 29, 2016 14:01
[2016-06-29] MEDS: TPN PER PHARMACY MC PRN (14:41)
[2016-06-29 14:51] VITALS: BP 102/61
--- NOTE | 2016-06-29 15:01 | PDOC3 ---
Discharge Summary Visit Information Date of Admission: Jun 17, 2016 Date of Discharge: Jun 29, 2016 Admitting Diagnosis Comment: 1. Ulcerative colitis flare, manifested as bloody stools 2. Malnutrition: mod-severe. 3. Anemia: 2/2 acute blood loss as well as chronic inflammation. 4. DM: 5. Hx DVT: 6. Hx C.diff: Final Diagnosis Problems Medical Problems: (1) Colitis Status: Acute Brief Hospital Course Allergies Allergies Coded Allergies Type Severity Reaction Last Updated Verified Sulfa (Sulfonamide Antibiotics) Allergy Mild Fever 06/24/16 Yes Vital Signs Vital Signs Date Time Temp Pulse Resp B/P Pulse Ox O2 Delivery O2 Flow Rate FiO2 06/29/16 14:51 98.2 109 20 102/61 99 Room Air 98.2 Lab Results Laboratory Tests Test 06/27/16 15:56 06/27/16 20:19 06/28/16 03:45 06/28/16 07:34 Glucose (Fingerstick) 163mg/dL (70-99) 140mg/dL (70-99) 133mg/dL (70-99) White Blood Count 11.9x10^3/uL (4.0-11.0) Red Blood Count 3.03x10^6/uL (4.30-5.70) Hemoglobin 8.7g/dL (13.0-17.5) Hematocrit 27.2% (39.0-53.0) Mean Corpuscular Volume 90fL (79-100) Mean Corpuscular Hemoglobin 29pg (25-35) Mean Corpuscular Hemoglobin Concent 32g/dL (31-37) Red Cell Distribution Width 15.8% (11.5-14.5) Platelet Count 288x10^3/uL (140-400) Neutrophils (%) (Auto) 62% (31-73) Lymphocytes (%) (Auto) 29% (24-48) Monocytes (%) (Auto) 8% (0-9) Eosinophils (%) (Auto) 1% (0-3) Basophils (%) (Auto) 1% (0-3) Neutrophils # (Auto) 7.4x10^3uL (1.8-7.7) Lymphocytes # (Auto) 3.4x10^3/uL (1.0-4.8) Monocytes # (Auto) 1.0x10^3/uL (0.0-1.1) Eosinophils # (Auto) 0.1x10^3/uL (0.0-0.7) Basophils # (Auto) 0.1x10^3/uL (0.0-0.2) Segmented Neutrophils % 36% (35-66) Band Neutrophils % 28% (0-9) Lymphocytes % 26% (24-48) Monocytes % 6% (0-10) Metamyelocytes % 3% (0-0) Myelocytes % 1% (0-0) Nucleated Red Blood Cells 2 Platelet Estimate Adequate (ADEQUATE) Polychromasia Slight Basophilic Stippling Present Anisocytosis Slight Sodium Level 136mmol/L (136-145) Potassium Level 4.9mmol/L (3.5-5.1) Chloride Level 103mmol/L (98-107) Carbon Dioxide Level 27mmol/L (21-32) Anion Gap 6 (6-14) Blood Urea Nitrogen 5mg/dL (8-26) Creatinine 0.6mg/dL (0.7-1.3) Estimated GFR (Cockcroft-Gault) 185.5 Glucose Level 130mg/dL (70-99) Calcium Level 7.5mg/dL (8.5-10.1) Phosphorus Level 2.5mg/dL (2.6-4.7) Magnesium Level 1.8mg/dL (1.8-2.4) Test 06/28/16 10:32 06/28/16 14:30 06/28/16 16:28 06/28/16 21:22 Glucose (Fingerstick) 165mg/dL (70-99) 191mg/dL (70-99) 231mg/dL (70-99) Erythrocyte Sedimentation Rate 96 (0-15) Test 06/29/16 06:20 06/29/16 07:35 06/29/16 11:49 Hemoglobin 8.0g/dL (13.0-17.5) Hematocrit 25.2% (39.0-53.0) Mean Corpuscular Hemoglobin Concent 32g/dL (31-37) Glucose (Fingerstick) 138mg/dL (70-99) 139mg/dL (70-99) Laboratory Tests Test 06/28/16 16:28 06/28/16 21:22 06/29/16 06:20 06/29/16 07:35 Glucose (Fingerstick) 191mg/dL (70-99) 231mg/dL (70-99) 138mg/dL (70-99) Hemoglobin 8.0g/dL (13.0-17.5) Hematocrit 25.2% (39.0-53.0) Mean Corpuscular Hemoglobin Concent 32g/dL (31-37) Test 06/29/16 11:49 Glucose (Fingerstick) 139mg/dL (70-99) Brief Hospital Course Mr. Malin is a 36 old Inmate known UC admitted for a flare which manifests as bloody diarrhea, Hemodynamically stable, HH stable, bloody stools coming down low, but maintains on liquid diet with TPN bec everytime we advance diet abd pain ensues again. Accept[facility] at [facility],. Theo need to cont iV antibiotic, TPN and IV pain emds along with GI consult, Dw EDILMA and RN and GI REstarted his home pred regimen for flares., 2 visits today 2 notes - see prev progress note Discharge Information Condition at Discharge: Improved, Stable Disposition/Orders: Other (select) Scheduled Hydroxyzine Hcl (Hydroxyzine Hcl) 1 TAB PO BID (Reported) Multivitamin (One Daily) 1 EACH PO DAILY (Reported) Nystatin (Nystatin) 5 ML PO BID (Reported) Pnv95/Ferrous Fumarate/FA ( Caplet) 1 EACH PO DAILY (Reported) Prednisone (Prednisone) 40 MG PO DAILY (Reported) Prednisone (Prednisone) 1 TAB PO HS (Reported) Trimethobenzamide Hcl (Tigan) 100 MG IM PRN BID (Reported) Scheduled PRN Acetaminophen (Acetaminophen) 1,000 MG PO PRN BID PRN PRN MILD PAIN / TEMP ( Reported) Loperamide Hcl (Loperamide) 2 TAB PO PRN DAILY PRN PRN DIARRHEA (Reported) Miscellaneous Medications ([boost oral liquid]) (Reported) JOYCE GARCIA MD Jun 29, 2016 15:01
[2016-06-29] MEDS ORDERED: FERROUS SULFATE ORAL 300 MG/5 ML SOLUTION. PO SCH (17:00)
[2016-06-29] MEDS ORDERED: TOTAL PARENTERAL NUTRITION IV SCH ×11 (22:00)
[2016-06-29] MEDS ORDERED: [UNRECOGNIZED DRUG - OTHER] IV SCH ×11 (22:00)
[2016-06-29] MEDS ORDERED: AMINO ACIDS IV SCH ×11 (22:00)
[2016-06-29] MEDS ORDERED: DEXTROSE 70% IV SCH ×11 (22:00)
== END 2016-06-29 19:36 | DRG 385 ==
LOC: EEVIPCON 12:44 → ER 12:44 → 5 SOUTH 18:24
PROVIDERS: ADMIT Internal Medicine; ATTEND Internal Medicine
PROC: 30233N1 Transfusion of Nonautologous Red Blood Cells into Peripheral Vein, Percutaneous Approach (ICD-10-PCS; principal; 2016-06-18)
PROC: 02HV33Z Insertion of Infusion Device into Superior Vena Cava, Percutaneous Approach (ICD-10-PCS; 2016-06-22)
PROC: B5181ZA Fluoroscopy of Superior Vena Cava using Low Osmolar Contrast, Guidance (ICD-10-PCS; 2016-06-22)
DX: K51.911 Ulcerative colitis, unspecified with rectal bleeding (principal); E43 Unspecified severe protein-calorie malnutrition; D62 Acute posthemorrhagic anemia; Z68.1 Body mass index [BMI] 19.9 or less, adult; E11.9 Type 2 diabetes mellitus without complications; I10 Essential (primary) hypertension; I27.2 Other secondary pulmonary hypertension; Z88.2 Allergy status to sulfonamides; Z82.49 Family history of ischemic heart disease and other diseases of the circulatory system; Z86.718 Personal history of other venous thrombosis and embolism; Z90.49 Acquired absence of other specified parts of digestive tract; Z79.899 Other long term (current) drug therapy
CPT/HCPCS: 36415; 71010; 74177; 80048; 80053; 82274; 82607; 82728; 82746; 82947; 83540; 83550; 83605; 83690; 83735; 83880; 84100; 84478; 84484; 85007; 85014; 85018; 85027; 85045; 85610; 85651; 86850; 86870; 86900; 86901; 86922; 87045; 87324; 87641; 96374; 96375; J0610; J0690; J0696; J1756; J1815; J2270; J2405; J2920; J3010; J3475; J3490; J7030; J7050; J7512; P9016; Q0163; Q9966; Q9967; 99285-25